=== PATIENT | female | born 1960 | race Caucasian/White ===

== ENCOUNTER 2020-05-13 08:11 | Outpatient (CLI) | payer OTHER, SELFPAY ==
--- NOTE | ~2020-05-13 | MM_ITS ---
EXAMINATION: MM screening [facility] BI w juliana HISTORY: Screening mammogram TECHNIQUE: Craniocaudal and mediolateral oblique 3-D tomosynthesis images were obtained and synthetic 2-D images were generated. CAD analysis was submitted and interpreted. COMPARISON: 06/19/2018, 01/24/2017, 12/15/2015, 12/13/2015 BREAST PARENCHYMAL COMPOSITION: There are scattered areas of fibroglandular density. FINDINGS: There is no evidence of suspicious mass, calcification, or architectural distortion to sugg est malignancy in either breast. There has been no suspicious interval change. IMPRESSION: 1. No mammographic evidence of malignancy. 2. Recommend routine screening mammography in one year. BI-RADS Category 1: Negative Reviewed, dictated and finalized at location A.
== END 2020-05-13 08:12 | disposition home or self-care (01) ==
LOC: ANHIMG 08:14
PROVIDERS: PCP Family Medicine; Visit Provider Obstetrics & Gynecology
DX: Z12.31 Encounter for screening mammogram for malignant neoplasm of breast (principal)
CPT/HCPCS: 77063; 77067

== ENCOUNTER 2021-06-02 09:56 | Outpatient (CLI) | payer OTHER, SELFPAY ==
--- NOTE | ~2021-06-02 | MM_ITS ---
EXAMINATION: MM screening [facility] BI w juliana HISTORY: Screening mammogram TECHNIQUE: Craniocaudal and mediolateral oblique 3-D tomosynthesis images were obtained and synthetic 2-D images were generated. CAD analysis was submitted and interpreted. COMPARISON: 05/13/2020, 06/19/2018, 01/24/2017 BREAST PARENCHYMAL COMPOSITION: The breasts are heterogeneously dense, which may obscure small masses . FINDINGS: There is no evidence of suspicious mass, calcification, or architectural distortion to sugg est malignancy in either breast. There has been no suspicious interval change. IMPRESSION: 1. No mammographic evidence of malignancy. 2. Recommend routine screening mammography in one year. BI-RADS Category 1: Negative Reviewed, dictated and finalized at location A. TY HEAD
== END 2021-06-02 09:57 | disposition home or self-care (01) ==
LOC: ANHIMG 09:58
PROVIDERS: PCP Family Medicine; Visit Provider Obstetrics & Gynecology
DX: Z12.31 Encounter for screening mammogram for malignant neoplasm of breast (principal)
CPT/HCPCS: 77063; 77067

== ENCOUNTER 2022-04-24 14:20 | Outpatient (NON) | payer OTHER, SELFPAY | END 2022-04-24 14:21 | disposition home or self-care (01) | PROVIDERS: PCP Family Medicine; Visit Provider Nurse Practitioner | DX: L82.1 Other seborrheic keratosis (principal) | CPT/HCPCS: 88305 ==

== ENCOUNTER 2022-05-15 13:00 | Outpatient (NON) | payer OTHER, SELFPAY | END 2022-05-15 13:01 | disposition home or self-care (01) | PROVIDERS: PCP Family Medicine; Visit Provider Nurse Practitioner | DX: L82.1 Other seborrheic keratosis (principal) | CPT/HCPCS: 88304 ==

== ENCOUNTER 2022-08-02 09:35 | Outpatient (CLI) | payer OTHER, SELFPAY ==
--- NOTE | ~2022-08-02 | MM_ITS ---
EXAMINATION: MM screening [facility] BI w juliana HISTORY: Screening mammogram TECHNIQUE: Craniocaudal and mediolateral oblique 3-D tomosynthesis images were obtained and synthetic 2-D images were generated. CAD analysis was submitted and interpreted. COMPARISON: 06/02/2021, 05/13/2020, 06/19/2018 BREAST PARENCHYMAL COMPOSITION: There are scattered areas of fibroglandular density. FINDINGS: No suspicious mass, calcification, or architectural distortion are identified in either ann marie ast to suggest malignancy. There has been no suspicious interval change. IMPRESSION: 1. No mammographic evidence of malignancy. 2. Recommend routine screening mammography in one year. BI-RADS Category 1: Negative Reviewed, dictated and finalized at location A. NSION COURSE COORDINATOR
== END 2022-08-02 09:36 | disposition home or self-care (01) ==
PROVIDERS: PCP Family Medicine; Visit Provider Obstetrics & Gynecology
DX: Z12.31 Encounter for screening mammogram for malignant neoplasm of breast (principal)
CPT/HCPCS: 77063; 77067

== ENCOUNTER 2022-09-03 07:53 | Outpatient (CLI) | payer OTHER, SELFPAY ==
--- NOTE | 2022-09-03 18:34 | P.PCNPFT_ITS ---
PFT Procedure Performed PFT Procedure Performed Spirometry with Pre/Post Bronchodilator Plethysmography (Lung Vol) Diffusing Cap (DLCO) Flow Vol Loop PFT Interpretation DOS: 09/03/2022 REQUESTING: Dr. Franklin REASON FOR TESTING: Chronic cough PULMONARY FUNCTION TESTS Results are reliable and reproducible. Spirometry: Pre-bronchodilator FEV1 is 2.75 L, 114%, normal. Pre- bronchodilator FVC is 3.93 L, 129%, above normal. FEV1/FVC ratio is 70%, normal. After bronchodilator there is a 3% increase in the FEV1, 117 % predicted. This is not statistically significant. There is no change after bronchodilator in the forced vital capacity. The FEF 25-75% is normal at baseline 1.77 L, 80% predicted and increases to 94% predicted. This is not statistically significant. Lung volumes: Total lung capacity 5.75 L, 117%, normal. Residual volume is 1.83 L, 94% predicted, normal. RV/TLC is 32%, within the normal range. There is no hyperinflation or air trapping. Airway resistance 2.42 cm water/ L/ 2nd, 170% predicted, elevated. Diffusion: DLCO is 22.3, 105% predicted, normal. DLCO/ VA is 4.3, 96%, normal. Flow volume loop: Unremarkable. The expiratory limb is normal. IMPRESSION: This study shows normal spirometry, normal lung volumes and normal diffusion. Lack of response to bronchodilator should not preclude use if clinically indicated. Anisha Pappas MD
== END 2022-09-03 07:54 | disposition home or self-care (01) ==
LOC: ANHPFT 07:56
PROVIDERS: PCP Family Medicine; Visit Provider Family Medicine
DX: R05.3 Chronic cough (principal)
CPT/HCPCS: 94060; 94726; 94729

== ENCOUNTER 2022-09-10 13:27 | Emergency (ER) | payer OTHER, SELFPAY ==
--- NOTE | 2022-09-10 13:32 | ED.URI ---
HPI - URI/Sore Throat General Chief Complaint: Upper Respiratory Infection Stated Complaint: Sore Throat/Left Ear Time Seen by Provider: 09/10/22 13:36 Source: patient, RN notes reviewed and old records reviewed Mode of arrival: ambulatory Limitations: no limitations History of Present Illness HPI Narrative: 61-year-old female presents to the [facility] with 5 days of sore throat and left ear pain. Denies taking anything for her symptoms States that she uses a nasal spray and takes allergy medication daily Recently had a pulmonary function test. Is scheduled to see a switchboard wirer as well as any ENT next week Related Data Home Medications Medication Instructions Recorded Confirmed fluticasone propionate 50 50 mcg intranasal DIRECTED 09/10/22 09/10/22 mcg/actuation nasal spray,suspension levothyroxine 50 mcg tablet 50 mcg DIRECTED 09/10/22 09/10/22 (Synthroid) loratadine 10 mg tablet (Claritin) 10 mg PO DAILY 09/10/22 09/10/22 Allergies Allergy/AdvReac Type Severity Reaction Status Date / Time No Known Allergies Allergy Verified 07/28/14 18:09 Review of Systems Review of Systems: All systems reviewed & are unremarkable except as noted in HPI and below Constitutional: Constitutional: Reports no additional constitutional complaints Eyes: Eyes: Reports no additional eye complaints ENT: Reports as per HPI, Reports otalgia (Left) and Reports sore throat Cardiovascular: Cardiovascular: Reports no additional cardiovascular complaints, Denies chest pain and Denies dyspnea Respiratory: Respiratory: Reports no additional respiratory complaints, Denies chest congestion, Denies cough and Denies dyspnea Gastrointestinal: Gastrointestinal: Reports no additional gastrointestinal complaints, Denies abdominal pain, Denies nausea and Denies vomiting Musculoskeletal: Musculoskeletal: Reports no additional musculoskeletal complaints Integumentary/Breasts: Skin/Breast: Reports system reviewed and no additional complaints, except as docu Neurologic: Reports system reviewed and no additional complaints, except as documented Psychiatric: Psychiatric: Reports no additional psychiatric complaints Allergic/Immunologic: Allergic/Immunologic: Reports no additional allergic/immunologic complaints [facility] Family History Family History Mother Hypertension Family history of chronic obstructive pulmonary disease Family history of diabetes mellitus in first degree relative Other Cerebrovascular accident Diabetes mellitus Family history of alcoholism Family history of arthritis Family history of cardiovascular disease Family history of lung disease Family history of malignant neoplasm Family history of mental disorder Social History Social History Smoking status: Never smoker Alcohol intake: never Comments At the time of my signature, I reviewed and agree with the nursing past medical, surgical, social, and family history. There is no relevant family history pertinent to the patient complaint. Exam Const: General: cooperative, healthy appearing, comfortable, no acute distress, well developed, alert and well nourished Nutritional Appearance: well nourished Orientation/consciousness: patient oriented x3 Limitations: no limitations HENMT: Head: normal to inspection Ears: hearing grossly normal bilaterally, external ears normal, TM's normal bilaterally and Abnormal EAC present erythema on the left; no cerumen impaction, no excessive cerumen and no edema Face/Nose/Sinus: Normal external nose present, Normal nares present, Normal nasal mucous membranes and turbinates present and normal facial exam Face and sinus: normal facial exam Mouth: Yes Normal oral and palatal mucosa present, Yes lip normal and Yes moist mucous membranes Throat: posterior oropharynx normal, uvula midline and postnasal drainage Eye
[2022-09-10 13:36] VITALS: BP 137/75; PULSE 62; RESP 16; TEMP 36.9; O2SAT 100
[2022-09-10 13:38] VITALS: BP 137/75; PULSE 62; RESP 16; TEMP 36.9; O2SAT 100
== END 2022-09-10 13:58 | disposition home or self-care (01) ==
PROVIDERS: Emergency Provider Nurse Practitioner; PCP Family Medicine
DX: J02.9 Acute pharyngitis, unspecified (principal); H61.892 Other specified disorders of left external ear; E03.9 Hypothyroidism, unspecified
CPT/HCPCS: 87081; 87880; 99213; G0463

== ENCOUNTER 2023-09-09 09:05 | Outpatient (CLI) | payer OTHER, SELFPAY ==
--- NOTE | ~2023-09-09 | MM_ITS ---
EXAMINATION: MM screening [facility] BI w juliana HISTORY: Screening TECHNIQUE: Craniocaudal and mediolateral oblique 3-D tomosynthesis images were obtained and synthetic 2-D images were generated. CAD analysis was submitted and interpreted. COMPARISON: Comparison to multiple prior studies sequentially, with oldest reviewed study dated 08/2015. BREAST PARENCHYMAL COMPOSITION: Dense: The breasts are heterogeneously dense, which may obscure small masses FINDINGS: There is no evidence of suspicious mass, calcification, or architectural distortion to sugg est malignancy in either breast. There has been no suspicious interval change. IMPRESSION: 1. No mammographic evidence of malignancy. 2. Recommend routine screening mammography in one year. BI-RADS Category 1: Negative Reviewed, dictated and finalized at location A. IC RELATIONS INTERN
== END 2023-09-09 09:06 | disposition home or self-care (01) ==
LOC: ANHIMG 09:07
PROVIDERS: PCP Family Medicine; Visit Provider Obstetrics & Gynecology
DX: Z12.31 Encounter for screening mammogram for malignant neoplasm of breast (principal)
CPT/HCPCS: 77063; 77067

== ENCOUNTER 2023-09-30 03:02 | Day surgery (SDC) | payer OTHER, SELFPAY ==
[2023-09-18 14:54] VITALS: BMI 26.2
--- NOTE | 2023-09-30 13:32 | P.PNAN_ITS ---
Anes - Initial Pre Proc Eval Procedure: Operation Date: 09/30/23 14:30 Proposed Procedures p Screening Colonoscopy - Maurizio Feliciano MD Date/Time: 09/30/23 13:32 Surgeon: Maurizio Feliciano MD Pre Op Diagnosis: neoplasm screening Patient Data Age: 63 Gender: F Height: 1.57 m Weight: 65 kg Allergies Allergy/AdvReac Type Severity Reaction Status Date / Time No Known Allergies Allergy Verified 09/18/23 14:51 Home Medications Medication Instructions Recorded Confirmed Type fluticasone propionate 50 50 mcg intranasal DIRECTED 09/10/22 09/18/23 History mcg/actuation nasal spray,suspension levothyroxine 50 mcg tablet 50 mcg DIRECTED 09/10/22 09/18/23 History (Synthroid) loratadine 10 mg tablet (Claritin) 10 mg PO DAILY 09/10/22 09/18/23 History escitalopram oxalate 10 mg tablet 10 mg PO DAILY 09/18/23 09/18/23 History Patient hx anesthesia problems: none Family hx anesthesia problems: none Results Review: All pre-operative results and documents have been reviewed as part of the pre- operative evaluation. [facility] Family History Family History Mother Hypertension Family history of chronic obstructive pulmonary disease Family history of diabetes mellitus in first degree relative Other Cerebrovascular accident Diabetes mellitus Family history of alcoholism Family history of arthritis Family history of cardiovascular disease Family history of lung disease Family history of malignant neoplasm Family history of mental disorder Social History Social History Smoking status: Never smoker Alcohol intake: never Living arrangements: with family Spiritual care concerns: No Anes - Eval Final PreProcedure Day of Procedure 09/30/23 13:32 Patient weight: normal Heart: regular rate and rhythm Lungs: clear to auscultation Airway: Mallampati scale class II Neurological: alert and oriented Last oral intake: >/= 8 hours ASA classification: II Emergent: no Anesthetic plan: proceed Anesthesia type and monitoring: general GIVS and standard monitoring Results Review: All pre-operative results and documents have been reviewed as part of the pre- operative evaluation. Informed Consent: The patient's anesthetic plan and its attendant risks and benefits were discussed with the patient/family/POA. Questions were solicited and answers provided to the satisfaction of the patient/family/POA.
[2023-09-30 13:35] VITALS: BP 115/60; PULSE 73; RESP 16; TEMP 37; O2SAT 98
[2023-09-30] MEDS: LACTATED RINGERS 1,000 ML 150 ML IV CONT (13:45)
--- NOTE | 2023-09-30 13:49 | PM.HPGS ---
History of Present Illness History of Present Illness Consent: Risks, benefits, and alternatives have been discussed and questions answered. Patient agrees to proceed with procedure. Chief complaint: neoplasm screening Narrative: Shena Fierro is a 63 year old female here for screening colonoscopy, last one 12 years ago Review of Systems Review of Systems: All systems reviewed & are unremarkable except as noted in HPI and below PMFSH Past Medical History Medical History (Updated 09/30/23 @ 13:50 by Maurizio Feliciano MD) Colon cancer screening Family History Family History Mother Hypertension Family history of chronic obstructive pulmonary disease Family history of diabetes mellitus in first degree relative Other Cerebrovascular accident Diabetes mellitus Family history of alcoholism Family history of arthritis Family history of cardiovascular disease Family history of lung disease Family history of malignant neoplasm Family history of mental disorder Social History Social History Smoking status: Never smoker Alcohol intake: never Living arrangements: with family Spiritual care concerns: No Meds Home Medications and Allergies Home Medications Medication Instructions Recorded Confirmed Type fluticasone propionate 50 50 mcg intranasal DIRECTED 09/10/22 09/30/23 History mcg/actuation nasal spray,suspension levothyroxine 50 mcg tablet 50 mcg DIRECTED 09/10/22 09/30/23 History (Synthroid) loratadine 10 mg tablet (Claritin) 10 mg PO DAILY 09/10/22 09/30/23 History escitalopram oxalate 10 mg tablet 10 mg PO DAILY 09/18/23 09/30/23 History Allergies Allergy/AdvReac Type Severity Reaction Status Date / Time No Known Allergies Allergy Verified 09/30/23 13:34 Vital Signs Vital Signs - 24 hr 09/30/23 13:35 Temperature 98.6 F Pulse Rate 73 Respiratory Rate 16 Blood Pressure 115/60 Pulse Oximetry 98 Oxygen Delivery Room Air Exam Const: General: comfortable and no acute distress HENMT: Face/Nose/Sinus: Normal nares present Eyes: General: appearance normal, both eyes and all related structures Neck: Neck: no JVD Resp: Auscultation: clear to auscultation bilaterally Cardio: Rate: regular rate Rhythm: regular rhythm GI: Inspection: non-distended GI Palp: Yes Soft to palpation Skin: General skin exam: normal color Neuro: General: gait normal Speech: normal speech Extrem: General: normal to inspection Psych: Mental Status: mental status grossly normal Assessment and Plan Assessment and plan (1) Colon cancer screening: Code(s): Z12.11 - Encounter for screening for malignant neoplasm of colon Status: Acute Assessment and Plan: colonoscopy
[2023-09-30 14:08] VITALS: BP 119/63; PULSE 75; RESP 24; O2SAT 99
[2023-09-30 14:18] VITALS: BP 122/60; PULSE 74; RESP 22; O2SAT 100
[2023-09-30 14:28] VITALS: BP 132/87; PULSE 81; RESP 20; O2SAT 99
== END 2023-09-30 14:43 | disposition home or self-care (01) ==
PROVIDERS: PCP Family Medicine; Visit Provider Internal Medicine Gastroenterology
PROC: 0DJD8ZZ Inspection of Lower Intestinal Tract, Via Natural or Artificial Opening Endoscopic (ICD-10-PCS; CPT 45378; principal; 2023-09-30 14:30)
DX: Z12.11 Encounter for screening for malignant neoplasm of colon (principal); K63.5 Polyp of colon; K64.8 Other hemorrhoids; Z80.9 Family history of malignant neoplasm, unspecified; Z82.49 Family history of ischemic heart disease and other diseases of the circulatory system
CPT/HCPCS: 45385; 88305; J2704; J7120

== ENCOUNTER 2024-10-05 14:44 | Outpatient (CLI) | payer OTHER, SELFPAY ==
--- NOTE | ~2024-10-05 | MM_ITS ---
EXAMINATION: MM screening candido BI w juliana HISTORY: Screening TECHNIQUE: Craniocaudal and mediolateral oblique 3-D tomosynthesis images were obtained and synthetic 2-D images were generated. CAD analysis was submitted and interpreted. COMPARISON: 09/09/2023 and dating back to 05/13/2020 BREAST PARENCHYMAL COMPOSITION: The breasts are heterogeneously dense, which may obscure small masses . FINDINGS: Punctate calcifications are detected bilaterally, stable and benign in appearance. Microclip within a subcentimeter mass in the upper outer left breast, consistent with patient's histo ry. Stable parenchymal pattern without suspicious microcalcifications, architectural distortion, discrete masses or significant asymmetry. IMPRESSION: 1. No mammographic evidence of malignancy. 2. Recommend routine screening mammography in one year. BI-RADS Category 2: Benign finding(s). Reviewed, dictated and finalized at location A.
--- OUTSIDE RECORDS SUMMARY | 2024-10-05 17:02 | XMS_ITS | Encounter Summary ---
Author Organization [facility] Address 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
--- OUTSIDE RECORDS SUMMARY | 2024-10-05 17:02 | XMS_ITS | Encounter Summary ---
Author Organization [facility] Address [address] [place] [address] Care Team Providers Care Senior Benefits Specialist Name Role Phone Sarkis Dolan MD Primary Care Provider [phone] Encounter Details Date Type Department Care Team (Late st Contact Info) Description 12/16/2000 Outpatient Historical [facility] [address] 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
--- OUTSIDE RECORDS SUMMARY | 2024-10-05 17:02 | XMS_ITS | Encounter Summary ---
Author Organization [facility] Address 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
--- OUTSIDE RECORDS SUMMARY | 2024-10-05 17:02 | XMS_ITS | Encounter Summary ---
Author Organization [facility] Address [address] [place] [address] Care Team Providers Care Nurse School Name Role Phone Sarkis Dolan MD Primary Care Provider [phone] Encounter Details Date Type Department Care Team (Latest Contact Info) Description 12/16/2000 Outpatient Historical [facility] Monroe Burnett MD [address] 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
--- OUTSIDE RECORDS SUMMARY | 2024-10-05 17:03 | XMS_ITS | Encounter Summary ---
Author Organization [facility] Address 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
--- OUTSIDE RECORDS SUMMARY | 2024-10-05 17:03 | XMS_ITS | Encounter Summary ---
Author Organization [facility] Address 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
--- OUTSIDE RECORDS SUMMARY | 2024-10-05 17:03 | XMS_ITS | Encounter Summary ---
Author Organization [facility] Address [address] [place] [address] Care Team Providers Care Central Station Operator Name Role Phone Sarkis Dolan MD Primary Care Provider [phone] Encounter Details Date Type Department Care Team (Latest Contact Info) Description 11/07/2000 Outpatient Historical [facility] Sarkis Dolan MD [address] [place] [address] Unspecified hypertensive kidney disease with chronic kidney disease stage I through stage IV, or unspecified(403.90) (Primary Dx) Social History Tobacco Use Types Packs/Day Years Used Date Smoking Tobacco: Never Assessed Comments Unknown Sex and Gender Information Value Date Recorded Sex Assigned at Not on file Legal Sex Female 4:29 AM BRIDAL GOWN FITTER Gender Identity Not on file Sexual Orientation Not on file documented as of this encounter Plan of Treatment Not on file documented as of this encounter Visit Diagnoses Diagnosis Unspecified hypertensive kidney disease with chronic kidney disease stage I through stage IV, or unspecified(403.90)- Primary Unspecified hypertensive kidney disease with chronic kidney disease stage I through stage IV, or unspecified documented in this encounter Care Teams Central Station Operator Relationship Specialty Start Date End Date Sarkis Dolan MD [address] [place] [address] PCP - General 10/31/00 documented as of this encounter
--- OUTSIDE RECORDS SUMMARY | 2024-10-05 17:03 | XMS_ITS | Encounter Summary ---
Author Organization [employer] Address [address] [place] [address] Care Team Providers Care Force Dispatcher Name Role Phone Sarkis Dolan MD Primary Care Provider [phone] Encounter Details Date Type Department Care Team (Latest Contact Info) Description 11/27/2000 Outpatient Historical [facility] Sarkis Dolan MD [address] [place] [address] Unspecified essential hypertension (Primary Dx) Social History Tobacco Use Types Packs/Day Years Used Date Smoking Tobacco: Never Assessed Comments Unknown Sex and Gender Information Value Date Recorded Sex Assigned at Not on file Legal Sex Female 4:29 AM STOVE FITTER Gender Identity Not on file Sexual Orientation Not on file documented as of this encounter Plan of Treatment Not on file documented as of this encounter Visit Diagnoses Diagnosis Unspecified essential hypertension- Primary documented in this encounter Care Teams Force Dispatcher Relationship Specialty Start Date End Date Sarkis Dolan MD [address] [place], [place] [id number] PCP - General 10/31/00 documented as of this encounter
--- OUTSIDE RECORDS SUMMARY | 2024-10-05 17:03 | XMS_ITS | Encounter Summary ---
Author Organization [employer] Address [address] [place] [address] Care Team Providers Care Field Automobile Adjuster Name Role Phone Sarkis Dolan MD Primary Care Provider [phone] Encounter Details Date Type Department Care Team (Latest Contact Info) Description 11/07/2000 Outpatient Historical [facility] Sarkis Dolan MD [address] [place] [address] Syncope and collapse (Primary Dx) Social History Tobacco Use Types Packs/Day Years Used Date Smoking Tobacco: Never Assessed Comments Unknown Sex and Gender Information Value Date Recorded Sex Assigned at Not on file Legal Sex Female 4:29 AM REED MAN Gender Identity Not on file Sexual Orientation Not on file documented as of this encounter Plan of Treatment Not on file documented as of this encounter Visit Diagnoses Diagnosis Syncope and collapse- Primary documented in this encounter Care Teams Field Automobile Adjuster Relationship Specialty Start Date End Date Sarkis Dolan MD [address] [place], [place] [id number] PCP - General 10/31/00 documented as of this encounter
--- OUTSIDE RECORDS SUMMARY | 2024-10-05 17:03 | XMS_ITS | Encounter Summary ---
Author Organization [facility] Address [address] [place] [address] Care Team Providers Care Batteryman Name Role Phone Sarkis Dolan MD Primary Care Provider [phone] Encounter Details Date Type Department Care Team (Latest Contact Info) Description 11/25/2000 Outpatient Historical [facility] Sarkis Lopez MD [address] [place] [address] Other screening mammogram (Primary Dx) Social History Tobacco Use Types Packs/Day Years Used Date Smoking Tobacco: Never Assessed Comments Unknown Sex and Gender Information Value Date Recorded Sex Assigned at Not on file Legal Sex Female 4:29 AM UI SOFTWARE DEVELOPER Gender Identity Not on file Sexual Orientation Not on file documented as of this encounter Plan of Treatment Not on file documented as of this encounter Visit Diagnoses Diagnosis Other screening mammogram- Primary documented in this encounter Care Teams Batteryman Relationship Specialty Start Date End Date Sarkis Dolan MD [address] [place] [address] PCP - General 10/31/00 documented as of this encounter
--- OUTSIDE RECORDS SUMMARY | 2024-10-05 17:03 | XMS_ITS | Encounter Summary ---
Author Organization [facility] Address 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
--- OUTSIDE RECORDS SUMMARY | 2024-10-05 17:04 | XMS_ITS | Encounter Summary ---
Author Organization [employer] Address [address] [place] [address] Care Team Providers Care Platform Consultant Name Role Phone Sarkis Dolan MD Primary Care Provider [phone] Encounter Details Date Type Department Care Team (Latest Contact Info) Description 12/19/2000 Outpatient Historical [facility] PATIENT IN A BED [place] Burnett MD [address] [facility] [address] [place] [address] Vascular disorders of kidney (Primary Dx) Social History Tobacco Use Types Packs/Day Years Used Date Smoking Tobacco: Never Assessed Comments Unknown Sex and Gender Information Value Date Recorded Sex Assigned at Not on file Legal Sex Female 4:29 AM FRUIT CHECKER Gender Identity Not on file Sexual Orientation Not on file documented as of this encounter Plan of Treatment Not on file documented as of this encounter Visit Diagnoses Diagnosis Vascular disorders of kidney- Primary documented in this encounter Care Teams Platform Consultant Relationship Specialty Start Date End Date Sarkis Dolan MD [address] [place], [place] [id number] PCP - General 10/31/00 documented as of this encounter
--- OUTSIDE RECORDS SUMMARY | 2024-10-05 17:04 | XMS_ITS | Encounter Summary ---
Author Organization [employer] Address [address] [place] [address] Care Team Providers Care Job Molder Name Role Phone Sarkis Dolan MD Primary Care Provider [phone] Encounter Details Date Type Department Care Team (Latest Contact Info) Description 02/18/2001 Outpatient Historical [facility]-PATIENT Urinary tract infection, site not specified (Primary Dx) Social History Tobacco Use Types Packs/Day Years Used Date Smoking Tobacco: Never Assessed Comments Unknown Sex and Gender Information Value Date Recorded Sex Assigned at Not on file Legal Sex Female 4:29 AM SOCK AND STOCKING IRONER Gender Identity Not on file Sexual Orientation Not on file documented as of this encounter Plan of Treatment Not on file documented as of this encounter Visit Diagnoses Diagnosis Urinary tract infection, site not specified- Primary documented in this encounter Care Teams Job Molder Relationship Specialty Start Date End Date Sarkis Dolan MD [address] [place] [address] PCP - General 10/31/00 documented as of this encounter
--- OUTSIDE RECORDS SUMMARY | 2024-10-05 17:04 | XMS_ITS | Encounter Summary ---
Author Organization [facility] Address [address] [place] [address] Care Team Providers Care Manager Pacu Name Role Phone Sarkis Dolan MD Primary Care Provider [phone] Encounter Details Date Type Department Care Team (Latest Contact Info) Description 10/22/2000 Outpatient Historical [facility] Conversion, History Gynecological examination (Primary Dx) Social History Tobacco Use Types Packs/Day Years Used Date Smoking Tobacco: Never Assessed Comments Unknown Sex and Gender Information Value Date Recorded Sex Assigned at Not on file Legal Sex Female 4:29 AM INFORMATION SYSTEMS SECURITY SPECIALIST Gender Identity Not on file Sexual Orientation Not on file documented as of this encounter Plan of Treatment Not on file documented as of this encounter Visit Diagnoses Diagnosis Gynecological examination- Primary documented in this encounter Care Teams Manager Pacu Relationship Specialty Start Date End Date Sarkis Dolan MD [address] [place] [address] PCP - General 10/31/00 documented as of this encounter
--- OUTSIDE RECORDS SUMMARY | 2024-10-05 17:04 | XMS_ITS | Encounter Summary ---
Author Organization [employer] Address [address] [place] [address] Care Team Providers Care Wet Machine Operator Name Role Phone Sarkis Dolan MD Primary Care Provider [phone] Encounter Details Date Type Department Care Team (Latest Contact Info) Description 10/21/2000 Outpatient Historical [facility]NON-PATIENT So Garcia Irregular menstrual cycle (Primary Dx) Social History Tobacco Use Types Packs/Day Years Used Date Smoking Tobacco: Never Assessed Comments Unknown Sex and Gender Information Value Date Recorded Sex Assigned at Not on file Legal Sex Female 4:29 AM WOODWORKING MACHINE OFFBEARER Gender Identity Not on file Sexual Orientation Not on file documented as of this encounter Plan of Treatment Not on file documented as of this encounter Visit Diagnoses Diagnosis Irregular menstrual cycle- Primary documented in this encounter Care Teams Wet Machine Operator Relationship Specialty Start Date End Date Sarkis Dolan MD [address] [place] [address] PCP - General 10/31/00 documented as of this encounter
--- OUTSIDE RECORDS SUMMARY | 2024-10-05 17:04 | XMS_ITS | Encounter Summary ---
Author Organization [employer] Address [address] [place] [address] Care Team Providers Care Recovery Assistant Name Role Phone Sarkis Dolan MD Primary Care Provider [phone] Encounter Details Date Type Department Care Team (Late st Contact Info) Description 10/31/2000 Outpatient Historical [facility] Sarkis Dolan MD [address] [place] [address] Leiomyoma of uterus, unspecified (Primary Dx) Social History Tobacco Use Types Packs/Day Years Used Date Smoking Tobacco: Never Assessed Comments Unknown Sex and Gender Information Value Date Recorded Sex Assigned at Not on file Legal Sex Female 4:29 AM ROBOTICS TESTING TECHNICIAN Gender Identity Not on file Sexual Orientation Not on file documented as of this encounter Plan of Treatment Not on file documented as of this encounter Visit Diagnoses Diagnosis Leiomyoma of uterus, unspecified- Primary documented in this encounter Care Teams Recovery Assistant Relationship Specialty Start Date End Date Sarkis Dolan MD [address] [place], [place] [id number] PCP - General 10/31/00 documented as of this encounter
--- OUTSIDE RECORDS SUMMARY | 2024-10-05 17:04 | XMS_ITS | Encounter Summary ---
Author Organization [facility] Address [address] [place] [address] Care Team Providers Care Electro Optical Engineer Name Role Phone Sarkis Dolan MD Primary Care Provider [phone] Encounter Details Date Type Department Care Team (Late st Contact Info) Description 10/22/2000 Outpatient Historical [facility] So Garcia Social History Tobacco Use Types Packs/Day Years Used Date Smoking Tobacco: Never Assessed Comments Unknown Sex and Gender Information Value Date Recorded Sex Assigned at Not on file Legal Sex Female 4:29 AM SWIFT TENDER Gender Identity Not on file Sexual Orientation Not on file documented as of this encounter Plan of Treatment Not on file documented as of this encounter Visit Diagnoses Not on filedocumented in this encounter Care Teams Electro Optical Engineer Relationship Specialty Start Date End Date Sarkis Dolan MD [address] [place] [address] PCP - General 10/31/00 documented as of this encounter
--- OUTSIDE RECORDS SUMMARY | 2024-10-05 17:04 | XMS_ITS | Encounter Summary ---
Author Organization [facility] Address [address] [place] [address] Care Team Providers Care Glue Spreader Name Role Phone Sarkis Dolan MD Primary Care Provider [phone] Encounter Details Date Type Department Care Team (Late st Contact Info) Description 10/30/2000 Outpatient Historical HIS [facility] Sarkis Dolan MD [address] [place] [address] Social History Tobacco Use Types Packs/Day Years Used Date Smoking Tobacco: Never Assessed Comments Unknown Sex and Gender Information Value Date Recorded Sex Assigned at Not on file Legal Sex Female 4:29 AM BODY MASKER Gender Identity Not on file Sexual Orientation Not on file documented as of this encounter Plan of Treatment Not on file documented as of this encounter Visit Diagnoses Not on filedocumented in this encounter Care Teams Glue Spreader Relationship Specialty Start Date End Date Sarkis Dolan MD [address] [place] [address] PCP - General 10/31/00 documented as of this encounter
--- OUTSIDE RECORDS SUMMARY | 2024-10-05 17:04 | XMS_ITS ---
Author Organization [facility] Address [address] [place] [address] Care Team Providers Care Telecommunications Manager Name Role Phone Lizzie Franklin Primary Care Provider Unavailab le Pita Salvador Unavailable [phone] [facility], Provider Unavailable Unavailab le [facility] Encounter Medications Medication SIG (Take, Route, Frequency, Duration) Notes Start Date End Date Status Cetirizine HCl 10 MG 1 tab(s) orally onc e a day 09/19/2022 Active Flonase Sensimist 27.5 MCG/SPRAY as directed intranasally once a day for 30 day(s) 09/19/2022 Active Claritin 10 MG 1 tab(s) orally once a day uses prn Active EPINEPHRINE AUTO-INJECTOR 0.3 MG DIRECTED INTRAMUSCULARLY ONCE for 1 DAY *Please review for potential replacement for e-prescription and drug interaction check* 09/19/2022 Active Levothyroxine Sodium 25 MCG 1 tab(s) orally once a day for 30 day(s) Active ALBUTEROL (EQV-PROVENTIL HFA) 90 MCG/INH 2 PUFF(S) INHALED EVERY 6 HOURS *Please review for potential replacement for e-prescription and drug interaction check* 09/19/2022 Active Nasacort Allergy 24HR uses prn *Please review and pick correct strength[facility]ulat ion [facility]. If intended option is not shown, discontinue and re-order from Quick Search* Active ALBUTEROL (EQV-PROVENTIL HFA) 90 MCG/INH 2 PUFF(S) INHALED EVERY 6 HOURS uses prn *Please review for potential replacement for e-prescription and drug interaction check* Active Arnuity Ellipta 100 MCG/ACT USE 1 INHALATION EVERY 24 HOURS Active Encounters Encounter Location Date Provider Diagnosis [facility] [address] [place] [address] 12/28/2023 Provider TheaZ-Migration Allergic rhinitis due to pollen J30.1 and [...] 27.5 MCG/SPRAY as directed intranasally once a day for 30 day(s) 09/19/2022 EPINEPHRINE AUTO-INJECTOR 0.3 MG DIRECTED INTRAMUSCULARLY ONCE for 1 DAY 09/19/2022 *Please review for potential replacement for e-prescription and drug interaction check* ALBUTEROL (EQV-PROVENTIL HFA) 90 MCG/INH 2 PUFF(S) INHALED EVERY 6 HOURS 09/19/2022 *Please review for potential replacement for e-prescription and drug interaction check* Arnuity Ellipta 100 MCG/ACT USE 1 INHALATION EVERY 24 HOURS Progress Notes * Shena FIERRODOB:1960 (64 yo F)Acc No.[id number]:12/28/2023 Patient: Shena ORELLANA Provider: Vanessa Walker :1960 A ge:63 Y S ex:Female Date:12/28/2023 Address:[address] [place], [place] [id number] Pcp:Lizzie Franklin Subjective: * Chief Complaints: * 1 . [facility] Conversion Encounter. * Medical History: * Medications: T aking Nasacort Allergy 24HR , Notes to Pharmacist: uses prn *Please review and pick correct [facility]formulation [facility]. If intended option is not shown, [...] * Electronic signature of Jeffery BECKFORD-Migration on 10/05/2024 at 05:03 PM CDT Sign off status: Pending * Provider: Vanessa guzman Migration Date: 0 12/28/2023 Generated for Vanessa pickering/Edwin/Carsonsmitting on: 0 10/05/2024 05:03 PM CDT
--- OUTSIDE RECORDS SUMMARY | 2024-10-05 17:04 | XMS_ITS | Encounter Summary ---
Author Organization [facility] Address 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
--- OUTSIDE RECORDS SUMMARY | 2024-10-05 17:04 | XMS_ITS | Clinical Summary ---
Author Organization [facility] Address [address] [facility] [place] [address] Phone Care Team Providers Care Business Process Representative Name Role Phone Sarkis Dolan MD Primary Care Provider [phone] Allergies No known active allergies Medications amLODIPine (NORVASC) 5 mg tablet 12/09/2015 Active hydrochlorothiazid e (MICROZIDE) 12.5 mg capsule 09/19/2015 Active levothyroxine 25 mcg tablet 12/09/2015 Active escitalopram oxalate (LEXAPRO) 10 mg tablet 09/19/2015 Active Active Problems Problem Noted Date Diagnosed Date Breast lump in female 12/20/2015 Family History Medical History Relation Name Comments Diabetes Mother Heart Disease Mother Breast Cancer Neg Hx Ovarian Cancer Neg Hx Uterine Cancer Neg Hx Relation Name Status Comments Mother Social History Tobacco Use Types Packs/Day Years Used Date Smoking Tobacco: Never Smokeless Tobacco: Never Tobacco Cessation:Counseling Given: No Alcohol Use Standard Drinks/Week Comments Yes 0 (1 standard drink = 0.6 oz pur e alcohol) moderate Comments No Sex and Gender Information Value Date Recorded Sex Assigned at Not on file Legal Sex Female 4:29 AM SOFTWARE SYSTEMS ANALYST Gender Identity Not on file Sexual Orientation Not on file Last Filed Vital Signs Vital Sign Reading Time Taken Comments Blood Pressure 132/77 12/23/2015 12:21 PM CDT Pulse 58 12/23/2015 12:21 PM CDT Temperature - - Respiratory Rate - - Oxygen Saturation - - Inhaled Oxygen Concentration - - Weight 70.3 kg (155 lb) 12/23/2015 12:21 PM CDT Height 160 cm (5' 3 ) 12/23/2015 12:21 PM CDT Body Mass Index 27.46 12/23/2015 12:21 PM CDT Plan of Treatment Health Maintenance Due Date Last Done Comments DTAP/TDAP/TD VACCINES (1 - Tdap) 1980 PAP SMEAR 1982 CERVICAL CANCER SCREENING 09/21/1991 HPV/Cotest 09/21/1991 PAP SMEAR 09/21/1991 COLORECTAL SCREENING 2006 Colorectal Cancer Screening 2006 FIT-DNA Q 3 years 2006 FIT/FOBT Q 1 year 2006 Flex Sig/CT Colonography Q 5 years 2006 ZOSTER VACCINE (1 of 2) 09/21/2011 BREAST CANCER SCREENING 12/14/2016 12/15/19 16, 12/13/2015, 09/29/2014, Additional history exists INFLUENZA VACCINE (#1) 2024 Preventative Visit- Commercial 07/15/2024 RSV VACCINE (60+ or ) (1 - 1-dose 75+ series) 2036 PNEUMOCOCCAL VACCINE 0-49 YEARS Aged Out No longer eligible based on patient's age to complete this topic Procedures Procedure Name Priority Date/Time Associated Diagnosis Comments MAMMO DIAGNOSTIC UNI LEFT W OR WO CAD Routine 12/15/2015 from Last 3 Months or Most Recently Relevant to Health Maintenance Results * MAMMO DIGITAL DIAG UNI LEFT (12/15/2015) Anatomical Region Laterality Modality Breast Left Other Riky Campos MD MAMMO ORDERABLES Edit ed Result - Final from Last 3 Months or Most Recently Relevant to Health Maintenance [place] [address] [place] [id number] Care Teams Business Process Representative Relationship Specialty Start Date End Date Sarkis Dolan MD [address] [place] [address] PCP - General 10/31/00
--- OUTSIDE RECORDS SUMMARY | 2024-10-05 17:04 | XMS_ITS | Encounter Summary ---
[facility] Organization [facility] Address [address] [place] [address] Care Team Providers Care Machine Hoop Maker Helper Name Role Phone Sarkis Dolan MD Primary Care Provider [phone] Encounter Details Date Type Department Care Team (Late st Contact Info) Description 03/18/2001 Outpatient Historical [facility] Brian Akers MD [id number] [place] [address] Social History Tobacco Use Types Packs/Day Years Used Date Smoking Tobacco: Never Assessed Comments Unknown Sex and Gender Information Value Date Recorded Sex Assigned at Not on file Legal Sex Female 4:29 AM COAT FITTER Gender Identity Not on file Sexual Orientation Not on file documented as of this encounter Plan of Treatment Not on file documented as of this encounter Visit Diagnoses Not on filedocumented in this encounter Care Teams Machine Hoop Maker Helper Relationship Specialty Start Date End Date Sarkis Dolan MD [address] [place], [place] [id number] PCP - General 10/31/00 documented as of this encounter
--- OUTSIDE RECORDS SUMMARY | 2024-10-05 17:04 | XMS_ITS | Encounter Summary ---
Author Organization [facility] Address [address] [place] [address] Care Team Providers Care It Compliance Manager Name Role Phone Sarkis Dolan MD Primary Care Provider [phone] Encounter Details Date Type Department Care Team (Late st Contact Info) Description 12/30/2000 Outpatient Historical HIS [facility] Sarkis Dolan MD [address] [place] [address] Social History Tobacco Use Types Packs/Day Years Used Date Smoking Tobacco: Never Assessed Comments Unknown Sex and Gender Information Value Date Recorded Sex Assigned at Not on file Legal Sex Female 4:29 AM TRAINMAN Gender Identity Not on file Sexual Orientation Not on file documented as of this encounter Plan of Treatment Not on file documented as of this encounter Visit Diagnoses Not on filedocumented in this encounter Care Teams It Compliance Manager Relationship Specialty Start Date End Date Sarkis Dolan MD [address] [place] [address] PCP - General 10/31/00 documented as of this encounter
--- OUTSIDE RECORDS SUMMARY | 2024-10-05 17:04 | XMS_ITS | Data Portability ---
Author Organization [facility], Main Office Address [address] [place] [address] Care Team Providers Care Quality Control Checker Name Role Phone SUSHANT FRANKLIN Primary Care Provider SUSHANT FRANKLIN Referring Provider Assessment No assessment recorded. Plan of Treatment Reminders Order Date Submit Date Provider Last Modified By Organization Details Last Modified Time Details Appointments None recorded. Lab urinalysis , dipstick [email or web address] [place] [address], [address], [address], 4 17:12:56 urinalysis complete, reflex culture 2023 024 DYLAN Not available 4 04:10:06 urinalysis , dipstick 2023 024 [facility] [address], [place], [address], 4 08:45:29 CBC w/ auto diff 2023 024 DYLAN Not available 4 04:10:04 CMP, serum or plasma 2023 024 DYLAN Not available 4 04:10:05 TSH, serum or plasma 2023 024 [email or web address] Not available 4 08:15:53 vitamin B12, serum 2023 024 DYLAN Not available 4 04:10:09 folate, serum 2023 DYLAN Not available 4 04:10:08 Referral orthopedic surgeon referral - Please call patient to schedule. 2023 024 [email or web address] [facility], [address], [place], [address], 5 16:34:59 Procedures None recorded. Surgeries None recorded. Imaging CT, abdomen + pelvis, w/o contrast - r/o kidney stone 2023 [facility] (Radiology), [address], [place], [address], 4 10:03:04 Medication Orders Estrace 2 mg tablet 2023 024 [facility] #[id number], [address], [place], [place], [id number], 4 09:34:50 metronidaz ole 0.75 % topical gel 2023 024 [facility] #59702, [address], [place], [place], [id number], 4 09:34:47 escitalopr am 10 mg tablet 2023 024 [facility] #95549, [address], [place], [place], [id number], 4 09:34:57 albuterol sulfate HFA 90 mcg/actuat ion aerosol inhaler 2023 024 [facility] #57380, [address], [place], [place], [id number], 4 09:34:49 cyclobenza alma 5 mg tablet 2023 024 [facility] #58639, [address], [place], [place], [id number], 4 09:34:55 diclofenac sodium 75 mg tablet,del ayed release 2023 024 [facility] #06981, [address], [place], [place], [id number], 4 09:34:49 oxybutynin chloride ER 10 mg tablet,ext ended release 24 hr 2023 024 [facility] #43041, [address], [place], [place], [id number], 4 09:34:50 Synthroid 88 mcg tablet 2023 024 [facility] #37719, [address], [place], [place], [id number], 4 09:34:50 Claritin 10 mg tablet 2023 024 [facility] #15215, [address], [place], [place], [id number], 4 09:34:54 Estrace 2 mg tablet 2023 024 [facility] #79590, [address], [place], [place], [id number], 4 18:24:13 Macrodanti n 100 mg capsule 2023 024 [email or web address] [facility] #31606, [address], [place], [place], [id number], 4 10:29:50 oxybutynin chloride ER 10 mg tablet,ext ended release 24 hr 2023 024 man [facility] #88974, [address], [place], [place], [id number], 09:10:35 nitrofuran toin monohydrat e/macrocry stals 100 mg capsule 2023 024 [email or web address] [facility] #67238, [address], [place], [place], [id number], 10:29:57 Patient TargetsNo targets recorded. Patient Instructions Encounter Date Encounter Id Patient Instructions Last Modified By Organization Details Last Modified Time 12/27/2023 [id number] plan 1. If she starts having symptoms as she described I want her to 1st start by increasing water 2. Next try azo 1 tablet twice a day for 3-5 days 3. She can try cranberry tablets 1 tablet twice a day for 3-5 days 4. I will go ahead and send a prescription for vaginal Estrace for atrophic and I will have her insert 1 tablet in the vagina twice weekly at bedtime dispensed 24 tablets with 3 refills 5. I will go ahead and give her a prescription for Macrodantin and if she is tried everything and she is still having symptoms then I told her she could take Macrodantin 1 tablet 3 times a day for 3-5 days [email or web address] Not available 12/27/2023 18:23:31 03/30/2024 [id number] Follow up with provider Prescriptions sent to pharmacy Orthopedic referral for left SA joint pain. [email or web address] Not available 03/30/2024 09:33:35 Reason for Referral Orthopedic Surgeon Referral for Pain in left sacroiliac joint Please call patient to schedule. Referring Physician: Emi Quintero, Internal Medicine, Encounter Date: 03/30/2024 Results Created Date Observation Date Name Description Value Unit Range Abnormal Flag Note LastModifiedBy Organization Detail LastModifiedTime 09/05/19 24 09/04/2023 URINA LYSIS , COMPL ETE color TNP TEST NOT PERFO RMED No suita ble speci men recei mt. Pleas e revie w the test requi remen ts at testd irect ory.q uestd iagno Vtap .[employer] Not Available [facility] [address] [place], [address], 09/05/2023 00:35:53 09/05/19 24 09/04/2023 CULTU RE, URINE , ROUTI NE culture, urine, routine SEE NOTE CULTU RE, URINE , ROUTI NE Micro Numbe r: [id number] Test Statu s: Final Speci men Sourc e: Urine Speci men Quali ty: Adequ ate Resul t: No Growt h NO COLLE CTION DATE RECEI MT. WE HAVE USED THE DATE THE SPECI MEN WAS RECEI MT BY THIS LABOR ATORY THE COLLE CTION DATE. IF THIS IS INCOR RECT, PLEAS E CONTA CT CLIEN T SERVI DAVID. PHONE NUMBE R: [phone] Not Available [employer] [facility] [address] [place], [address], 09/05/2023 00:35:55 08/27/19 24 08/28/2023 UA/M W/RFL X CULTU RE, ROUTI NE specific gravity 1.005 1.005- 1.030 Not Available [facility] ([facility]) [address] [place], [address], 08/28/2023 10:36:49 08/27/19 24 08/28/2023 UA/M W/RFL X CULTU RE, ROUTI NE pH 6.0 5.0-7. 5 Not Available [facility] ([facility]) [address] [place], [address], 08/28/2023 10:36:49 08/27/19 24 08/28/2023 UA/M W/RFL X CULTU RE, ROUTI NE urine-color YELLOW yellow Not Available [facility] ([facility]) [address] [place], [address], 08/28/2023 10:36:49 08/27/19 24 08/28/2023 UA/M W/RFL X CULTU RE, ROUTI NE appearance CLEAR clear Not Available [facility] ([facility]) [address] [place], [address], 08/28/2023 10:36:49 08/27/19 24 08/28/2023 UA/M W/RFL X CULTU RE, ROUTI NE WBC esterase NEGATI VE negati ve Not Available [facility] ([facility]) [address] [place], [address], 08/28/2023 10:36:49 08/27/19 24 08/28/2023 UA/M W/RFL X CULTU RE, ROUTI NE protein NEGATI VE negati ve/tra ce Not Available [facility] ([facility]) [address] [place], [address], 08/28/2023 10:36:49 08/27/19 24 08/28/2023 UA/M W/RFL X CULTU RE, ROUTI NE glucose TRACE negati ve abnormal Not Available [facility] ([facility]) [address] [place], [address], 08/28/2023 10:36:49 08/27/19 24 08/28/2023 UA/M W/RFL X CULTU RE, ROUTI NE ketones NEGATI VE negati ve Not Available [facility] ([facility]) [address] [place], [address], 08/28/2023 10:36:49 08/27/19 24 08/28/2023 UA/M W/RFL X CULTU RE, ROUTI NE occult blood NEGATI VE negati ve Not Available [facility] ([facility]) [address] [place], [address], 08/28/2023 10:36:49 08/27/19 24 08/28/2023 UA/M W/RFL X CULTU RE, ROUTI NE bilirubin NEGATI VE negati ve Not Available [facility] ([facility]) [address] [facility], [place], [address], 08/28/2023 10:36:49 08/27/19 24 08/28/2023 UA/M W/RFL X CULTU RE, ROUTI NE urobilinogen ,semi-qn 0.2 mg/dL 0.2-1. 0 Not Available [facility] ([facility]) [address] [facility], [place], [address], 08/28/2023 10:36:49 08/27/19 24 08/28/2023 UA/M W/RFL X CULTU RE, ROUTI NE nitrite, urine NEGATI VE negati ve Not Available [facility] ([facility]) [address] [facility], [place], [address], 08/28/2023 10:36:49 08/27/19 24 08/28/2023 UA/M W/RFL X CULTU RE, ROUTI NE microscopic examination COMMEN T Micro scopi c follo ws if indic ated. Not Available [facility] ([facility]) [address] [facility], [place], [address], 08/28/2023 10:36:49 08/27/19 24 08/28/2023 UA/M W/RFL X CULTU RE, ROUTI NE microscopic examination SEE BELOW: Micro scopi c was indic ated and was perfo rmed. Not Available [facility] ([facility]) [address] [facility], [place], [address], 08/28/2023 10:36:49 08/27/19 24 08/28/2023 UA/M W/RFL X CULTU RE, ROUTI NE WBC NONE SEEN /hpf 0 - 5 Not Available [facility] ([facility]) [address] [facility], [place], [address], 08/28/2023 10:36:49 08/27/19 24 08/28/2023 UA/M W/RFL X CULTU RE, ROUTI NE RBC 0-2 /hpf 0 - 2 Not Available [facility] ([facility]) [address] [facility], [place], [address], 08/28/2023 10:36:49 08/27/19 24 08/28/2023 UA/M W/RFL X CULTU RE, ROUTI NE epithelial cells (non renal) NONE SEEN /hpf 0 - 10 Not Available [facility] ([facility]) [address] [facility], [place], [address], 08/28/2023 10:36:49 08/27/19 24 08/28/2023 UA/M W/RFL X CULTU RE, ROUTI NE epithelial cells (renal) ASSISTANCE SPECIALIST Not Available [facility] ([facility]) [address] [facility], [place], [address], 08/28/2023 10:36:49 08/27/19 24 08/28/2023 UA/M W/RFL X CULTU RE, ROUTI NE casts NONE SEEN /lpf none seen Not Available [facility] ([facility]) [address] [facility], [place], [address], 08/28/2023 10:36:49 08/27/19 24 08/28/2023 UA/M W/RFL X CULTU RE, ROUTI NE cast type ASSISTANCE SPECIALIST Not Available [facility] ([facility]) [address] [facility], [place], [address], 08/28/2023 10:36:49 08/27/19 24 08/28/2023 UA/M W/RFL X CULTU RE, ROUTI NE crystals ASSISTANCE SPECIALIST Not Available [facility] ([facility]) [address] [facility], [place], [address], 08/28/2023 10:36:49 08/27/19 24 08/28/2023 UA/M W/RFL X CULTU RE, ROUTI NE crystal type ASSISTANCE SPECIALIST Not Available [facility] ([facility]) [address] [facility], [place], [address], 08/28/2023 10:36:49 08/27/19 24 08/28/2023 UA/M W/RFL X CULTU RE, ROUTI NE mucus threads ASSISTANCE SPECIALIST Not Available [facility] ([facility]) [address] [facility], [place], [address], 08/28/2023 10:36:49 08/27/19 24 08/28/2023 UA/M W/RFL X CULTU RE, ROUTI NE bacteria NONE SEEN none seen/f ew Not Available [facility] ([facility]) [address] [facility], [place], [address], 08/28/2023 10:36:49 08/27/19 24 08/28/2023 UA/M W/RFL X CULTU RE, ROUTI NE yeast ASSISTANCE SPECIALIST Not Available [facility] ([facility]) [address] [facility], [place], [address], 08/28/2023 10:36:49 08/27/19 24 08/28/2023 UA/M W/RFL X CULTU RE, ROUTI NE trichomonas ASSISTANCE SPECIALIST Not Available [facility] ([facility]) [address] [facility], [place], [address], 08/28/2023 10:36:49 08/27/19 24 08/28/2023 UA/M W/RFL X CULTU RE, ROUTI NE comment ASSISTANCE SPECIALIST Not Available [facility] ([facility]) [address] [facility], [place], [address], 08/28/2023 10:36:49 08/27/19 24 08/28/2023 UA/M W/RFL X CULTU RE, ROUTI NE urinalysis reflex COMMEN T This speci men will not refle x to a Urine Cultu re. Not Available [facility] ([facility]) [address] [place], [address], 08/28/2023 10:36:49 08/27/19 24 08/27/2023 urina lysis , dipst ick Leukocytes (reference range: negative conner/ l) Negati ve Not Available [address], [place], [address], 08/27/2023 11:10:00 08/27/19 24 08/27/2023 urina lysis , dipst ick Nitrite (reference rage: negative mg/dl) negati ve Not Available [address], [place], [address], 08/27/2023 11:10:00 08/27/19 24 08/27/2023 urina lysis , dipst ick Urobilinogen (reference range: 0.2-1 mg/dl) 0.2 Not Available [address], [place], [address], 08/27/2023 11:10:00 08/27/19 24 08/27/2023 urina lysis , dipst ick Protein (reference range: negative mg/dl) Negati ve Not Available [address], [place], [address], 08/27/2023 11:10:00 08/27/19 24 08/27/2023 urina lysis , dipst ick pH (reference range: 5-7) 6.0 Not Available [address], [place], [address], 08/27/2023 11:10:00 08/27/19 24 08/27/2023 urina lysis , dipst ick Blood (reference range: negative Chester/ l) Negati ve Not Available [address], [place], [address], 08/27/2023 11:10:00 08/27/19 24 08/27/2023 urina lysis , dipst ick Specific Echo (reference range: 1.005-1.030) 1.005 Not Available [address], [place], [address], 08/27/2023 11:10:00 08/27/19 24 08/27/2023 urina lysis , dipst ick Ketone (reference range: negative mg/dl) Negati ve Not Available [address], [place], [address], 08/27/2023 11:10:00 08/27/19 24 08/27/2023 urina lysis , dipst ick Bilirubin (reference range: negative mg/dl) Negati ve Not Available [address], [place], [address], 08/27/2023 11:10:00 08/27/19 24 08/27/2023 urina lysis , dipst ick Glucose (reference range: negative mg/dl) 100 Not Available [address], [place], [address], 08/27/2023 11:10:00 08/27/19 24 08/27/2023 urina lysis , dipst ick Appearance Clear Not Available [address], [place], [address], 08/27/2023 11:10:00 08/27/19 24 08/27/2023 urina lysis , dipst ick Color Yellow Not Available [address], [place], [address], 08/27/2023 11:10:00 09/03/19 24 09/03/2023 urina lysis , dipst ick Leukocytes (reference range: negative conner/ l) Negati ve Not Available [address], [place], [address], 09/03/2023 10:33:53 09/03/19 24 09/03/2023 urina lysis , dipst ick Nitrite (reference rage: negative mg/dl) negati ve Not Available [address], [place], [address], 09/03/2023 10:33:53 09/03/19 24 09/03/2023 urina lysis , dipst ick Urobilinogen (reference range: 0.2-1 mg/dl) 0.2 Not Available [address], [place], [address], 09/03/2023 10:33:53 09/03/19 24 09/03/2023 urina lysis , dipst ick Protein (reference range: negative mg/dl) Negati ve Not Available [address], [place], [address], 09/03/2023 10:33:53 09/03/19 24 09/03/2023 urina lysis , dipst ick pH (reference range: 5-7) 5.5 Not Available [address], [place], [address], 09/03/2023 10:33:53 09/03/19 24 09/03/2023 urina lysis , dipst ick Blood (reference range: negative Chester/ l) Small Not Available [address], [place], [address], 09/03/2023 10:33:53 09/03/19 24 09/03/2023 urina lysis , dipst ick Specific Echo (reference range: 1.005-1.030) 1.025 Not Available [address], [place], [address], 09/03/2023 10:33:53 09/03/19 24 09/03/2023 urina lysis , dipst ick Ketone (reference range: negative mg/dl) Negati ve Not Available [address], [place], [address], 09/03/2023 10:33:53 09/03/19 24 09/03/2023 urina lysis , dipst ick Bilirubin (reference range: negative mg/dl) Negati ve Not Available [address], [place], [address], 09/03/2023 10:33:53 09/03/19 24 09/03/2023 urina lysis , dipst ick Glucose (reference range: negative mg/dl) Negati ve Not Available [address], [place], [address], 09/03/2023 10:33:53 09/03/19 24 09/03/2023 urina lysis , dipst ick Appearance Clear Not Available [address], [place], [address], 09/03/2023 10:33:53 09/03/19 24 09/03/2023 urina lysis , dipst ick Color Yellow Not Available [address], [place], [address], 09/03/2023 10:33:53 10/16/19 24 10/17/2023 CBC WITH DIFFE RENTI AL/PL ATELE T WBC 6.5 x10e3 /uL 3.4-10 .8 Not Available [facility] ([facility]) [address] [facility], [place], [address], 10/18/2023 04:10:03 10/16/19 24 10/17/2023 CBC WITH DIFFE RENTI AL/PL ATELE T RBC 4.74 x10e6 /uL 3.77-5 .28 Not Available [facility] ([facility]) [address] [facility], [place], [address], 10/18/2023 04:10:03 10/16/19 24 10/17/2023 CBC WITH DIFFE RENTI AL/PL ATELE T hemoglobin 14.4 g/dL 11.1-1 5.9 Not Available [facility] ([facility]) [address] [place], [address], 10/18/2023 04:10:03 10/16/19 24 10/17/2023 CBC WITH DIFFE RENTI AL/PL ATELE T hematocrit 42.6 % 34.0-4 6.6 Not Available [facility] ([facility]) [address] [place], [address], 10/18/2023 04:10:03 10/16/19 24 10/17/2023 CBC WITH DIFFE RENTI AL/PL ATELE T MCV 90 fL 79-97 Not Available [facility] ([facility]) [address] [place], [address], 10/18/2023 04:10:03 10/16/19 24 10/17/2023 CBC WITH DIFFE RENTI AL/PL ATELE T MCH 30.4 pg 26.6-3 3.0 Not Available [facility] ([facility]) [address] [place], [address], 10/18/2023 04:10:03 10/16/19 24 10/17/2023 CBC WITH DIFFE RENTI AL/PL ATELE T MCHC 33.8 g/dL 31.5-3 5.7 Not Available [facility] ([facility]) [address] [place], [address], 10/18/2023 04:10:03 10/16/19 24 10/17/2023 CBC WITH DIFFE RENTI AL/PL ATELE T RDW 13.1 % 11.7-1 5.4 Not Available [facility] ([facility]) [address] [facility], [place], [address], 10/18/2023 04:10:03 10/16/19 24 10/17/2023 CBC WITH DIFFE RENTI AL/PL ATELE T platelets 265 x10e3 /uL 150-45 0 Not Available [facility] ([facility]) [address] [facility], [place], [address], 10/18/2023 04:10:03 10/16/19 24 10/17/2023 CBC WITH DIFFE RENTI AL/PL ATELE T neutrophils 35 % not estab. Not Available [facility] ([facility]) [address] [facility], [place], [address], 10/18/2023 04:10:03 10/16/19 24 10/17/2023 CBC WITH DIFFE RENTI AL/PL ATELE T lymphs 50 % not estab. Not Available [facility] ([facility]) [address] [facility], [place], [address], 10/18/2023 04:10:03 10/16/19 24 10/17/2023 CBC WITH DIFFE RENTI AL/PL ATELE T monocytes 8 % not estab. Not Available [facility] ([facility]) [address] [facility], [place], [address], 10/18/2023 04:10:03 10/16/19 24 10/17/2023 CBC WITH DIFFE RENTI AL/PL ATELE T eos 6 % not estab. Not Available [facility] ([facility]) [address] [facility], [place], [address], 10/18/2023 04:10:03 10/16/19 24 10/17/2023 CBC WITH DIFFE RENTI AL/PL ATELE T basos 1 % not estab. Not Available [facility] ([facility]) [address] [place], [address], 10/18/2023 04:10:03 10/16/19 24 10/17/2023 CBC WITH DIFFE RENTI AL/PL ATELE T immature cells ASSISTANCE SPECIALIST Not Available [facility] ([facility]) [address] [place], [address], 10/18/2023 04:10:03 10/16/19 24 10/17/2023 CBC WITH DIFFE RENTI AL/PL ATELE T neutrophils (absolute) 2.3 x10e3 /uL 1.4-7. 0 Not Available [facility] ([facility]) [address] [facility], [place], [address], 10/18/2023 04:10:03 10/16/19 24 10/17/2023 CBC WITH DIFFE RENTI AL/PL ATELE T lymphs (absolute) 3.3 x10e3 /uL 0.7-3. 1 above high normal Not Available [facility] ([facility]) [address] [place], [address], 10/18/2023 04:10:03 10/16/19 24 10/17/2023 CBC WITH DIFFE RENTI AL/PL ATELE T monocytes(ab solute) 0.5 x10e3 /uL 0.1-0. 9 Not Available [facility] ([facility]) [address] [place], [address], 10/18/2023 04:10:03 10/16/19 24 10/17/2023 CBC WITH DIFFE RENTI AL/PL ATELE T eos (absolute) 0.4 x10e3 /uL 0.0-0. 4 Not Available [facility] ([facility]) [address] [place], [address], 10/18/2023 04:10:03 10/16/19 24 10/17/2023 CBC WITH DIFFE RENTI AL/PL ATELE T baso (absolute) 0.1 x10e3 /uL 0.0-0. 2 Not Available [facility] ([facility]) [address] [facility], [place], [address], 10/18/2023 04:10:03 10/16/19 24 10/17/2023 CBC WITH DIFFE RENTI AL/PL ATELE T immature granulocytes 0 % not estab. Not Available [facility] ([facility]) [address] [facility], [place], [address], 10/18/2023 04:10:03 10/16/19 24 10/17/2023 CBC WITH DIFFE RENTI AL/PL ATELE T immature grans (abs) 0.0 x10e3 /uL 0.0-0. 1 Not Available [facility] ([facility]) [address] [facility], [place], [address], 10/18/2023 04:10:03 10/16/19 24 10/17/2023 CBC WITH DIFFE RENTI AL/PL ATELE T NRBC ASSISTANCE SPECIALIST Not Available [facility] ([facility]) [address] [facility], [place], [address], 10/18/2023 04:10:03 10/16/19 24 10/17/2023 CBC WITH DIFFE RENTI AL/PL ATELE T hematology comments: ASSISTANCE SPECIALIST Not Available [facility] ([facility]) [address] [facility], [place], [address], 10/18/2023 04:10:03 10/16/19 24 10/17/2023 COMP. METAB OLIC PANEL (14) glucose 86 mg/dL 70-99 Not Available [facility] ([facility]) [address] [place], [address], 10/18/2023 04:10:05 10/16/19 24 10/17/2023 COMP. METAB OLIC PANEL (14) BUN 22 mg/dL 8-27 Not Available [facility] ([facility]) [address] [facility] [place], [address], 10/18/2023 04:10:05 10/16/19 24 10/17/2023 COMP. METAB OLIC PANEL (14) creatinine 0.90 mg/dL 0.57-1 .00 Not Available [facility] ([facility]) [address] [facility] [place], [address], 10/18/2023 04:10:05 10/16/19 24 10/17/2023 COMP. METAB OLIC PANEL (14) eGFR 72 mL/mi n/1.7 3 >59 Not Available [facility] ([facility]) [address] [facility] [place], [address], 10/18/2023 04:10:05 10/16/19 24 10/17/2023 COMP. METAB OLIC PANEL (14) BUN/creatini ne ratio 24 12-28 Not Available [facility] ([facility]) [address] [facility] [place], [address], 10/18/2023 04:10:05 10/16/19 24 10/17/2023 COMP. METAB OLIC PANEL (14) sodium 136 mmol/ L 134-14 4 Not Available [facility] ([facility]) [address] [facility] [place], [address], 10/18/2023 04:10:05 10/16/19 24 10/17/2023 COMP. METAB OLIC PANEL (14) potassium 4.7 mmol/ L 3.5-5. 2 Not Available [facility] ([facility]) [address] [facility] [place], [address], 10/18/2023 04:10:05 10/16/19 24 10/17/2023 COMP. METAB OLIC PANEL (14) chloride 99 mmol/ L 96-106 Not Available [facility] ([facility]) [address] [facility] [place], [address], 10/18/2023 04:10:05 10/16/19 24 10/17/2023 COMP. METAB OLIC PANEL (14) carbon dioxide, total 25 mmol/ L Not Available [facility] ([facility]) [address] [place] [place], [place], [address], 10/18/2023 04:10:05 10/16/19 24 10/17/2023 COMP. METAB OLIC PANEL (14) calcium 9.2 mg/dL 8.7-10 .3 Not Available [facility] ([facility]) [address], [place], [address], 10/18/2023 04:10:05 10/16/19 24 10/17/2023 COMP. METAB OLIC PANEL (14) protein, total 7.1 g/dL 6.0-8. 5 Not Available [facility] ([facility]) [address], [place], [address], 10/18/2023 04:10:05 10/16/19 24 10/17/2023 COMP. METAB OLIC PANEL (14) albumin 4.3 g/dL 3.9-4. 9 Not Available [facility] ([facility]) [address] [place], [address], 10/18/2023 04:10:05 10/16/19 24 10/17/2023 COMP. METAB OLIC PANEL (14) globulin, total 2.8 g/dL 1.5-4. 5 Not Available [facility] ([facility]) [address] [place], [address], 10/18/2023 04:10:05 10/16/19 24 10/17/2023 COMP. METAB OLIC PANEL (14) A/G ratio 1.5 1.2-2. 2 Not Available [facility] ([facility]) [address] [place], [address], 10/18/2023 04:10:05 10/16/19 24 10/17/2023 COMP. METAB OLIC PANEL (14) bilirubin, total 0.5 mg/dL 0.0-1. 2 Not Available [facility] ([facility]) [address], [place], [address], 10/18/2023 04:10:05 10/16/19 24 10/17/2023 COMP. METAB OLIC PANEL (14) alkaline phosphatase 82 IU/L 44-121 Not Available [facility] ([facility]) [address], [place], [address], 10/18/2023 04:10:05 10/16/19 24 10/17/2023 COMP. METAB OLIC PANEL (14) AST (SGOT) 22 IU/L 0-40 Not Available [facility] ([facility]) [address], [place], [address], 10/18/2023 04:10:05 10/16/19 24 10/17/2023 COMP. METAB OLIC PANEL (14) ALT (SGPT) 17 IU/L 0-32 Not Available [facility] ([facility]) [address] [place], [address], 10/18/2023 04:10:05 10/16/19 24 10/17/2023 UA/M W/RFL X CULTU REJARRETT NE specific gravity 1.017 1.005- 1.030 Not Available [facility] ([facility]) [address], [place], [address], 10/18/2023 04:10:06 10/16/19 24 10/17/2023 UA/M W/RFL X CULTU REJARRETT NE pH 5.5 5.0-7. 5 Not Available [facility] ([facility]) [address], [place], [address], 10/18/2023 04:10:06 10/16/19 24 10/17/2023 UA/M W/RFL X CULTU RE ROUTMary NE urine-color YELLOW yellow Not Available [facility] ([facility]) [address] [place], [address], 10/18/2023 04:10:06 10/16/19 24 10/17/2023 UA/M W/RFL X CULTU RE ROUTMary NE appearance CLEAR clear Not Available [facility] ([facility]) [address] [place], [address], 10/18/2023 04:10:06 10/16/19 24 10/17/2023 UA/M W/RFL X CULTU REJARRETT NE WBC esterase 2+ negati ve abnormal Not Available [facility] ([facility]) [address] [place], [address], 10/18/2023 04:10:06 10/16/19 24 10/17/2023 UA/M W/RFL X CULTU REJARRETT NE protein NEGATI VE negati ve/tra ce Not Available [facility] ([facility]) [address] [place], [address], 10/18/2023 04:10:06 10/16/19 24 10/17/2023 UA/M W/RFL X CULTAlaina REJRARETT NE glucose NEGATI VE negati ve Not Available [facility] ([facility]) [address] [place], [address], 10/18/2023 04:10:06 10/16/19 24 10/17/2023 UA/M W/RFL X CULTU REJARRETT NE ketones NEGATI VE negati ve Not Available [facility] ([facility]) [address] [place], [address], 10/18/2023 04:10:06 10/16/19 24 10/17/2023 UA/M W/RFL X CULTU RE, ROUTI NE occult blood NEGATI VE negati ve Not Available [facility] ([facility]) [address] [facility], [place], [address], 10/18/2023 04:10:06 10/16/19 24 10/17/2023 UA/M W/RFL X CULTU RE, ROUTI NE bilirubin NEGATI VE negati ve Not Available [facility] ([facility]) [address] [facility], [place], [address], 10/18/2023 04:10:06 10/16/19 24 10/17/2023 UA/M W/RFL X CULTU RE, ROUTI NE urobilinogen ,semi-qn 0.2 mg/dL 0.2-1. 0 Not Available [facility] ([facility]) [address] [facility], [place], [address], 10/18/2023 04:10:06 10/16/19 24 10/17/2023 UA/M W/RFL X CULTU RE, ROUTI NE nitrite, urine NEGATI VE negati ve Not Available [facility] ([facility]) [address] [facility], [place], [address], 10/18/2023 04:10:06 10/16/19 24 10/17/2023 UA/M W/RFL X CULTU RE, ROUTI NE microscopic examination SEE BELOW: Micro scopi c was indic ated and was perfo rmed. Not Available [facility] ([facility]) [address] [place], [address], 10/18/2023 04:10:06 10/16/19 24 10/17/2023 UA/M W/RFL X CULTU RE, ROUTI NE WBC 6-10 /hpf 0 - 5 abnormal Not Available [facility] ([facility]) [address] [facility], [place], [address], 10/18/2023 04:10:06 10/16/19 24 10/17/2023 UA/M W/RFL X CULTU RE, ROUTI NE RBC 0-2 /hpf 0 - 2 Not Available [facility] ([facility]) [address] [facility], [place], [address], 10/18/2023 04:10:06 10/16/19 24 10/17/2023 UA/M W/RFL X CULTU RE, ROUTI NE epithelial cells (non renal) NONE SEEN /hpf 0 - 10 Not Available [facility] ([facility]) [address] [facility], [place], [address], 10/18/2023 04:10:06 10/16/19 24 10/17/2023 UA/M W/RFL X CULTU RE, ROUTI NE epithelial cells (renal) ASSISTANCE SPECIALIST Not Available [facility] ([facility]) [address] [facility], [place], [address], 10/18/2023 04:10:06 10/16/19 24 10/17/2023 UA/M W/RFL X CULTU RE, ROUTI NE casts NONE SEEN /lpf none seen Not Available [facility] ([facility]) [address] [facility], [place], [address], 10/18/2023 04:10:06 10/16/19 24 10/17/2023 UA/M W/RFL X CULTU RE, ROUTI NE cast type ASSISTANCE SPECIALIST Not Available [facility] ([facility]) [address] [facility], [place], [address], 10/18/2023 04:10:06 10/16/19 24 10/17/2023 UA/M W/RFL X CULTU RE, ROUTI NE crystals ASSISTANCE SPECIALIST Not Available [facility] ([facility]) [address] [place], [address], 10/18/2023 04:10:06 10/16/19 24 10/17/2023 UA/M W/RFL X CULTU RE, ROUTI NE crystal type ASSISTANCE SPECIALIST Not Available [facility] ([facility]) [address] [place], [address], 10/18/2023 04:10:06 10/16/19 24 10/17/2023 UA/M W/RFL X CULTJARRETT HUA mucus threads ASSISTANCE SPECIALIST Not Available [facility] ([facility]) [address], [place], [address], 10/18/2023 04:10:06 10/16/19 24 10/17/2023 UA/M W/RFL X CULTU REJARRETT bacteria NONE SEEN none seen/f ew Not Available [facility] ([facility]) [address] [facility], [place], [address], 10/18/2023 04:10:06 10/16/19 24 10/17/2023 UA/M W/RFL X CULTAlaina REJARRETT yeast ASSISTANCE SPECIALIST Not Available [facility] ([facility]) [address] [facility], [place], [address], 10/18/2023 04:10:06 10/16/19 24 10/17/2023 UA/M W/RFL X CULTJARRETT HUA trichomonas ASSISTANCE SPECIALIST Not Available [facility] ([facility]) [address] [facility], [place], [address], 10/18/2023 04:10:06 10/16/19 24 10/17/2023 UA/M W/RFL X CULTJARRETT HUA comment ASSISTANCE SPECIALIST Not Available [facility] ([facility]) [address] [facility], [place], [address], 10/18/2023 04:10:06 10/16/19 24 10/17/2023 UA/M W/RFL X CULTJARRETT HUA microscopic examination ASSISTANCE SPECIALIST Not Available [facility] ([facility]) [address] [facility], [place], [address], 10/18/2023 04:10:06 10/16/19 24 10/17/2023 UA/M W/RFL X CULTU RE, ROUTI NE urinalysis reflex COMMEN T This speci men has refle xed to a Urine Cultu re. Not Available [facility] ([facility]) [address] [facility], [place], [address], 10/18/2023 04:10:06 10/16/19 24 10/18/2023 UA/M W/RFL X CULTU RE, ROUTI NE urine culture, routine FINAL REPORT Not Available [facility] ([facility]) [address] [facility], [place], [address], 10/18/2023 04:10:06 10/16/19 24 10/18/2023 UA/M W/RFL X CULTU RE, ROUTI NE result 1 NO GROWTH Not Available [facility] ([facility]) [address] [facility], [place], [address], 10/18/2023 04:10:06 10/16/19 24 10/17/2023 TSH TSH 4.520 uIU/m L 0.450- 4.500 above high normal Not Available [facility] ([facility]) [address] [facility], [place], [address], 10/18/2023 04:10:08 10/16/19 24 10/17/2023 FOLAT E (FOLI C ACID) , SERUM folate (folic acid), serum >20.0 NG/mL >3.0 A serum folat e yasmany ntrat ion of less than 3.1 ng/mL is consi dered to repre sent clini tristen defic iency . Not Available [facility] ([facility]) [address] [facility], [place], [address], 10/18/2023 04:10:08 10/16/19 24 10/17/2023 VITAM IN B12 vitamin B12 843 pg/mL 232-12 45 Not Available [facility] ([facility]) [address] [facility], [place], [address], 10/18/2023 04:10:09 10/16/19 24 10/16/2023 urina lysis , dipst ick Leukocytes (reference range: negative conner/ l) Small Not Available [address], [place], [address], 10/16/2023 08:14:22 10/16/19 24 10/16/2023 urina lysis , dipst ick Nitrite (reference rage: negative mg/dl) negati ve Not Available [address], [place], [address], 10/16/2023 08:14:22 10/16/19 24 10/16/2023 urina lysis , dipst ick Urobilinogen (reference range: 0.2-1 mg/dl) 0.2 Not Available [address], [place], [address], 10/16/2023 08:14:22 10/16/19 24 10/16/2023 urina lysis , dipst ick Protein (reference range: negative mg/dl) Negati ve Not Available [address], [place], [address], 10/16/2023 08:14:22 10/16/19 24 10/16/2023 urina lysis , dipst ick pH (reference range: 5-7) 5.5 Not Available [address], [place], [address], 10/16/2023 08:14:22 10/16/19 24 10/16/2023 urina lysis , dipst ick Blood (reference range: negative Chester/ l) Hemoly zed: Trace Not Available [address], [place], [address], 10/16/2023 08:14:22 10/16/19 24 10/16/2023 urina lysis , dipst ick Specific Echo (reference range: 1.005-1.030) 1.015 Not Available [address], [place], [address], 10/16/2023 08:14:22 10/16/19 24 10/16/2023 urina lysis , dipst ick Ketone (reference range: negative mg/dl) Negati ve Not Available [address], [place], [address], 10/16/2023 08:14:22 10/16/19 24 10/16/2023 urina lysis , dipst ick Bilirubin (reference range: negative mg/dl) Negati ve Not Available [address], [place], [address], 10/16/2023 08:14:22 10/16/19 24 10/16/2023 urina lysis , dipst ick Glucose (reference range: negative mg/dl) Negati ve Not Available [address], [place], [address], 10/16/2023 08:14:22 10/16/19 24 10/16/2023 urina lysis , dipst ick Appearance Clear Not Available [address], [place], [address], 10/16/2023 08:14:22 10/16/19 24 10/16/2023 urina lysis , dipst ick Color Yellow Not Available [address], [place], [address], 10/16/2023 08:14:22 11/21/19 24 11/23/2023 UA/M W/RFL X CULTU RE, ROUTI NE specific gravity 1.009 1.005- 1.030 Not Available [facility] ([facility]) [address] [place], [address], 11/23/2023 06:18:42 11/21/19 24 11/23/2023 UA/M W/RFL X CULTU RE, ROUTI NE pH 5.0 5.0-7. 5 Not Available [facility] ([facility]) [address] [place], [address], 11/23/2023 06:18:42 11/21/19 24 11/23/2023 UA/M W/RFL X CULTU RE, ROUTI NE urine-color YELLOW yellow Not Available [facility] ([facility]) [address] [place], [address], 11/23/2023 06:18:42 11/21/19 24 11/23/2023 UA/M W/RFL X CULTU RE, ROUTI NE appearance CLEAR clear Not Available [facility] ([facility]) [address] [place], [address], 11/23/2023 06:18:42 11/21/19 24 11/23/2023 UA/M W/RFL X CULTU RE, ROUTI NE WBC esterase NEGATI VE negati ve Not Available [facility] ([facility]) [address] [place], [address], 11/23/2023 06:18:42 11/21/19 24 11/23/2023 UA/M W/RFL X CULTU RE, ROUTI NE protein NEGATI VE negati ve/tra ce Not Available [facility] ([facility]) [address] [place], [address], 11/23/2023 06:18:42 11/21/19 24 11/23/2023 UA/M W/RFL X CULTU RE, ROUTI NE glucose NEGATI VE negati ve Not Available [facility] ([facility]) [address] [facility] [place], [address], 11/23/2023 06:18:42 11/21/19 24 11/23/2023 UA/M W/RFL X CULTU RE, ROUTI NE ketones NEGATI VE negati ve Not Available [facility] ([facility]) [address] [facility], [place], [address], 11/23/2023 06:18:42 11/21/19 24 11/23/2023 UA/M W/RFL X CULTU RE, ROUTI NE occult blood NEGATI VE negati ve Not Available [facility] ([facility]) [address] [facility], [place], [address], 11/23/2023 06:18:42 11/21/19 24 11/23/2023 UA/M W/RFL X CULTU RE, ROUTI NE bilirubin NEGATI VE negati ve Not Available [facility] ([facility]) [address] [facility], [place], [address], 11/23/2023 06:18:42 11/21/19 24 11/23/2023 UA/M W/RFL X CULTU RE, ROUTI NE urobilinogen ,semi-qn 0.2 mg/dL 0.2-1. 0 Not Available [facility] ([facility]) [address] [place], [address], 11/23/2023 06:18:42 11/21/19 24 11/23/2023 UA/M W/RFL X CULTU RE, ROUTI NE nitrite, urine NEGATI VE negati ve Not Available [facility] ([facility]) [address] [place], [address], 11/23/2023 06:18:42 11/21/19 24 11/23/2023 UA/M W/RFL X CULTU RE, ROUTI NE microscopic examination COMMEN T Micro scopi c follo ws if indic ated. Not Available [facility] ([facility]) [address] [facility], [place], [address], 11/23/2023 06:18:42 11/21/19 24 11/23/2023 UA/M W/RFL X CULTU RE, ROUTI NE microscopic examination SEE BELOW: Micro scopi c was indic ated and was perfo rmed. Not Available [facility] ([facility]) [address] [facility], [place], [address], 11/23/2023 06:18:42 11/21/19 24 11/23/2023 UA/M W/RFL X CULTU RE, ROUTI NE WBC NONE SEEN /hpf 0 - 5 Not Available [facility] ([facility]) [address] [facility], [place], [address], 11/23/2023 06:18:42 11/21/19 24 11/23/2023 UA/M W/RFL X CULTU RE, ROUTI NE RBC 0-2 /hpf 0 - 2 Not Available [facility] ([facility]) [address] [facility], [place], [address], 11/23/2023 06:18:42 11/21/19 24 11/23/2023 UA/M W/RFL X CULTU RE, ROUTI NE epithelial cells (non renal) NONE SEEN /hpf 0 - 10 Not Available [facility] ([facility]) [address] [facility], [place], [address], 11/23/2023 06:18:42 11/21/19 24 11/23/2023 UA/M W/RFL X CULTU RE, ROUTI NE epithelial cells (renal) ASSISTANCE SPECIALIST Not Available [facility] ([facility]) [address] [place], [address], 11/23/2023 06:18:42 11/21/19 24 11/23/2023 UA/M W/RFL X CULTU RE, ROUTI NE casts NONE SEEN /lpf none seen Not Available [facility] ([facility]) [address] [place], [address], 11/23/2023 06:18:42 11/21/19 24 11/23/2023 UA/M W/RFL X CULTU RE, ROUTI NE cast type ASSISTANCE SPECIALIST Not Available [facility] ([facility]) [address], [place], [address], 11/23/2023 06:18:42 11/21/19 24 11/23/2023 UA/M W/RFL X CULTU RE, ROUTI NE crystals ASSISTANCE SPECIALIST Not Available [facility] ([facility]) [address] [facility], [place], [address], 11/23/2023 06:18:42 11/21/19 24 11/23/2023 UA/M W/RFL X CULTU RE, ROUTI NE crystal type ASSISTANCE SPECIALIST Not Available [facility] ([facility]) [address] [facility], [place], [address], 11/23/2023 06:18:42 11/21/19 24 11/23/2023 UA/M W/RFL X CULTU RE, ROUTI NE mucus threads ASSISTANCE SPECIALIST Not Available [facility] ([facility]) [address] [facility], [place], [address], 11/23/2023 06:18:42 11/21/19 24 11/23/2023 UA/M W/RFL X CULTU RE, ROUTI NE bacteria NONE SEEN none seen/f ew Not Available [facility] ([facility]) [address] [facility], [place], [address], 11/23/2023 06:18:42 11/21/19 24 11/23/2023 UA/M W/RFL X CULTU RE, ROUTI NE yeast ASSISTANCE SPECIALIST Not Available [facility] ([facility]) [address] [facility], [place], [address], 11/23/2023 06:18:42 11/21/19 24 11/23/2023 UA/M W/RFL X CULTU RE, ROUTI NE trichomonas ASSISTANCE SPECIALIST Not Available [facility] ([facility]) [address] [facility], [place], [address], 11/23/2023 06:18:42 11/21/19 24 11/23/2023 UA/M W/RFL X CULTU RE, ROUTI NE comment ASSISTANCE SPECIALIST Not Available [facility] ([facility]) [address] [facility], [place], [address], 11/23/2023 06:18:42 11/21/19 24 11/23/2023 UA/M W/RFL X CULTU RE, ROUTI NE urinalysis reflex COMMEN T This speci men will not refle x to a Urine Cultu re. Not Available [facility] ([facility]) [address] [facility], [place], [address], 11/23/2023 06:18:42 11/21/19 24 11/21/2023 urina lysis , dipst ick Leukocytes (reference range: negative conner/ l) Negati ve Not Available [address], [place], [address], 11/21/2023 13:44:00 11/21/19 24 11/21/2023 urina lysis , dipst ick Nitrite (reference rage: negative mg/dl) negati ve Not Available [address], [place], [address], 11/21/2023 13:44:00 11/21/19 24 11/21/2023 urina lysis , dipst ick Urobilinogen (reference range: 0.2-1 mg/dl) 0.2 Not Available [address], [place], [address], 11/21/2023 13:44:00 11/21/19 24 11/21/2023 urina lysis , dipst ick Protein (reference range: negative mg/dl) Negati ve Not Available [address], [place], [address], 11/21/2023 13:44:00 11/21/19 24 11/21/2023 urina lysis , dipst ick pH (reference range: 5-7) 5.0 Not Available [address], [place], [address], 11/21/2023 13:44:00 11/21/19 24 11/21/2023 urina lysis , dipst ick Blood (reference range: negative Chester/ l) Non-He molyze d: Trace Not Available [address], [place], [address], 11/21/2023 13:44:00 11/21/19 24 11/21/2023 urina lysis , dipst ick Specific Echo (reference range: 1.005-1.030) 1.010 Not Available [address], [place], [address], 11/21/2023 13:44:00 11/21/19 24 11/21/2023 urina lysis , dipst ick Ketone (reference range: negative mg/dl) Negati ve Not Available [address], [place], [address], 11/21/2023 13:44:00 11/21/19 24 11/21/2023 urina lysis , dipst ick Bilirubin (reference range: negative mg/dl) Negati ve Not Available [address], [place], [address], 11/21/2023 13:44:00 11/21/19 24 11/21/2023 urina lysis , dipst ick Glucose (reference range: negative mg/dl) Negati ve Not Available [facility] [address], [place], [address], 11/21/2023 13:44:00 11/21/19 24 11/21/2023 urina lysis , dipst ick Appearance Clear Not Available [facility] [address], [place], [address], 11/21/2023 13:44:00 11/21/19 24 11/21/2023 urina lysis , dipst ick Color Pale Yellow Not Available [facility] [address], [place], [address], 11/21/2023 13:44:00 12/27/19 24 12/27/2023 urina lysis , dipst ick Color Yellow Not Available [facility] [address] [place] [address] [address], [place], [address], 12/27/2023 15:06:14 12/27/19 24 12/27/2023 urina lysis , dipst ick Appearance Slight ly Cloudy Not Available [facility] [address] [place] [address] [address], [place], [address], 12/27/2023 15:06:14 12/27/19 24 12/27/2023 urina lysis , dipst ick Glucose (reference range: negative mg/dl) Negati ve Not Available [facility] [address] [place] [address] [address], [place], [address], 12/27/2023 15:06:14 12/27/19 24 12/27/2023 urina lysis , dipst ick Bilirubin (reference range: negative mg/dl) Negati ve Not Available [facility] [address] [place] [address] [address], [place], [address], 12/27/2023 15:06:14 12/27/19 24 12/27/2023 urina lysis , dipst ick Ketone (reference range: negative mg/dl) Negati ve Not Available [facility] [address], [place], [address], 12/27/2023 15:06:14 12/27/19 24 12/27/2023 urina lysis , dipst ick Specific Echo (reference range: 1.005-1.030) 1.010 Not Available [facility] [address] [place] [address] [address], [place], [address], 12/27/2023 15:06:14 12/27/19 24 12/27/2023 urina lysis , dipst ick Blood (reference range: negative Chester/ l) Non-He molyze d: Trace Not Available [facility] [address] [place] [address] [address], [place], [address], 12/27/2023 15:06:14 12/27/19 24 12/27/2023 urina lysis , dipst ick pH (reference range: 5-7) 5.5 Not Available [facility]_ [facility] [address], [place], [address], 12/27/2023 15:06:14 12/27/19 24 12/27/2023 urina lysis , dipst ick Protein (reference range: negative mg/dl) Negati ve Not Available [facility] [address] [place] [address] [address], [place], [address], 12/27/2023 15:06:14 12/27/19 24 12/27/2023 urina lysis , dipst ick Urobilinogen (reference range: 0.2-1 mg/dl) 0.2 Not Available [facility] [address], [place], [address], 12/27/2023 15:06:14 12/27/19 24 12/27/2023 urina lysis , dipst ick Nitrite (reference rage: negative mg/dl) negati ve Not Available [facility] [address] [facility] [address], [place], [address], 12/27/2023 15:06:14 12/27/19 24 12/27/2023 urina lysis , dipst ick Leukocytes (reference range: negative conner/ l) Negati ve Not Available [facility] [address] [facility] [address], [place], [address], 12/27/2023 15:06:14 09/09/19 24 09/09/2023 MAMMO , scree alexandra, digit al, bilat eral No observ ation record ed. [email or web address] [facility] [address], [place], [address], 09/09/2023 13:45:33 10/16/19 24 10/16/2023 CT, abdom en + pelvi s, w/o contr ast [facility] [address], [place] [address] Patien t Name: SHENA FIERRO Access ion #: [id number] Sex: F : 1960 0 Dictat ed By: Sarkis Andrews ms Attend ing Physic alex: DIONNE DUMONT [facility] Physic alex: DIONNE DUMONT Exam Date: 2023 08:32 AM Exam Name: CT ABD PEL WO RENAL PROTOC OL Admitt ing Diagno sis(es ): Exam: CT abdome n and Pelvis withou t contra st Histor y: Flank pain Compar hallie Study: CT scan of the abdome n pelvis perfor med on 021. Techni que: Multid etecto r spiral CT of the abdome n and pelvis was perfor med from lung bases to pubic symphy sis. Imagin g was perfor med withou t intrav enous contra st. Axial, marks l and sagitt al multip lanar reform ats were obtain ed from the axial data set by the techno logissteffen . Radiat ion Dose : 1. Abdome n/Pelv is: CTDIvo l 11.4 mGy, DLP 536.8 mGy*cm . Findin gs: Evalua tion of vascul ature and solid organs is limite d due to lack of intrav enous contra st use. Lung Bases: Lung bases are clear. Visual ized portio ns of the heart and perica rdium are unrema rkable . Liver: The liver is normal in size. No focal lesion s. Gallbl adder and Biliar y Tree: The gallbl adder is unrema rkable No intrah epatic or extrah epatic biliar y ductal dilata tion. Spleen : There are scatte red calcif icatio ns throug hout the spleen consis tent with granul omas. The spleen is normal in size. Pancre as: The pancre as is grossl y unrema rkable . Page 1 [facility] [address] [address] Patien t Name: SHENA FIERRO ion #: [id number] Sex: F : 1960 0 Dictat ed By: Sarkis Andrews ms Attend ing Physic alex: SHARONDA ALVARADO [facility] Physic alex: DIONNE DUMONT Exam Date: 2023 08:32 AM Exam Name: CT ABD PEL WO RENAL PROTOC OL Admitt ing Diagno sis(es ): Adrena l Glands : Unrema rkable Kidney s: Kidney s are unrema rkable withou t calcul i or hydron ephros is. GI tract: The stomac h is grossl y normal in appear ance.. No eviden ce of small bowel wall thicke alexandra or abnorm al dilata tion to sugges t bowel obstru ction. There is diffus e stool throug hout the colon which may indica te consti pation . There is divert iculos is of the sigmoi d colon. No eviden ce of acute divert iculit is. The append ix is visual ized and is normal in calibe r. Perito neum/m esente ry/ret roperi toneum . No eviden ce of free intrap eriton eal air. No ascite s. No eviden ce of suspic ious lympha denopa thy. Abdomi nal Wall: Unrema rkable . Vascul ature: The visual ized abdomi nal aorta is normal in size and calibe r. There are athero sclero tic calcif icatio ns in the aorta. Evalua tion of abdomi nal and pelvic vessel s is limite d due to lack of intrav enous contra st. Urinar y Bladde r: Grossl y unrema rkable for degree of disten tion. Pelvic Organs : Uterus and adnexa l struct ures are unrema rkable . Muscul oskele trey: No aggres sive focal bony lesion s, acute fractu res or disloc ation. There is kapok and cotton machine operator ior fusion in the lumbar spine at L4-L5. IMPRES LATA: 1. No acute abdomi nal or pelvic findin gs. 2. Divert iculos is of the sigmoi d colon. No eviden ce of acute divert iculit is. 3. Diffus e stool throug hout the colon which may indica te consti pation . Electr onical ly Signed by: Sarkis Andrews ms at 2023 09:01: 48 AM Page 3 [facility] (Imaging) [address] [place], [address], 10/16/2023 10:25:52 07/01/20 24 07/01/2024 XR, chest , 2 view No observ ation record ed. [email or web address] [facility] [address] [place], [address], 08/20/2024 10:08:33 Result Notes None recorded. Problems Name Problem SNOMED Code Status Onset Date Resolution Date Notes Provider Name and Address Organization Details Recorded Time Increased frequency of urination 423659893 Active Not Available [facility] 4 18:10:21 Liver function tests outside reference range 713305077 Active Not Available [facility] 4 18:10:21 Fluid level behind tympanic membrane Active Not Available [facility] 4 18:10:21 Otitis externa 9233034 Active Not Available [facility] 4 18:10:21 Hypertensi ve disorder 52880310 Active Emi Quintero APRN [address], [place], [address] , [employer] [facility] [employer] [facility] 4 21:14:23 Hypothyroi dism 89534602 Active Emi Quintero APRN [address], [place], [address] , [employer] [facility] [employer] [facility] 4 21:14:28 Temporoman dibular joint disorder 29706389 Active Emi Quintero APRN [email or web address], [place], [address] , [employer] [facility] 4 21:14:48 Acute urinary tract infection 371907225 Active Not Available [facility] 4 18:10:21 Hypokalemi a 19087751 Active Not Available [facility] 4 18:10:21 Anxiety 01427824 Active MERLY Campbell [address], [place], [address] , [employer] [facility] [employer] [facility] 4 21:14:02 Essential hypertensi on 09043526 Active Not Available [facility] 4 18:10:21 Vitamin B12 deficiency (non anemic) 29630868 Active Emi Quintero APRN [employer] [address], [place], [address] , [employer] [facility] [employer] [facility] 4 21:14:44 Urinary tract infectious disease 10983405 Active Not Available [facility] 4 18:10:21 Hemorrhoid s 30149331 Active MERLY Campbell [address], [place], [address] , [employer] [facility] 4 21:14:21 Posterior rhinorrhea 45076504 Active Not Available [facility] 4 18:10:21 Obstructiv e sleep apnea syndrome 98037108 Active 2016 Emi Quintero APRN [address], [address], [place], [address] , [employer] [facility] 4 21:14:37 Fatigue 13200614 Active Not Available [facility] 4 18:10:21 Dysuria 37600330 Active 2022 Not Available [facility] 4 18:10:21 Chronic sinusitis 67294675 Active 2022 Not Available [facility] 4 18:10:21 Chronic sinusitis 21185337 Active 2022 Not Available [facility] 4 18:10:21 Chronic maxillary sinusitis 34622513 Active 2022 Emi Quintero APRN [address], [place], [address] , [employer] [facility] 4 21:14:18 Chronic sphenoidal sinusitis 65786174 Active 2022 Emi Quintero APRN [address], [place], [address] , [employer] [facility] 4 21:14:14 Chronic ethmoidal sinusitis 00915261 Active 2022 Not Available [facility] 4 18:10:21 Postoperat leonel pain 288854597 Active 2022 Not Available [employer] 4 18:10:21 Cervical spondylosi s 420569570 Active 2022 Emi Quintero APRN [address], [place], [address] , [employer] [facility] 4 21:14:11 Rosacea 545787282 Active 2022 Emi Quintero APRN [address], [place], [address] , [place] [facility] 4 21:14:40 Pain of right shoulder joint 6608733501227 9100 Active 2022 Not Available [facility] 4 18:10:21 Low back pain 661379681 Active 2023 Emi Quintero APRN [address], [place], [address] , [facility] 4 21:14:31 Flank pain 136392434 Active 2023 Sushant Franklin MD [address], [place], [address] , [facility] 4 08:11:10 Recurrent urinary tract infection 815835418 Active 2023 Emi Quintero APRN [address], [place], [address] , [facility] 4 21:14:53 Kidney stone 01792636 Active 2023 Olive Gonzalez CMA [facility], [place] - [facility] 4 15:06:04 Overactive urinary bladder 253508264 Active 2023 Rashaad Donnelly MD [address], [place], [address] , [facility] 4 18:19:30 Atrophic vaginitis 40208553 Active 2023 Emi Quintero APRN [address], [place], [address] , [facility] 4 21:14:04 Pain in left sacroiliac joint 6936558220960 9102 Active 2023 Emi Quintero APRN [address], [place], [address] , [facility] 4 09:32:09 Problem Notes None recorded. Procedures Surgical History Date Name Laterality Status Provider Name and Address Organization Details Recorded Time 09/30/19 24 colonoscopy completed Sushant Franklin MD [address] [facility], [facility] [address], [place], [address], [facility] [employer] [facility] 11/28/2023 09:14:53 01/01/20 23 ENDOSCOPY, NASAL/SINUS, W/ SPHENOIDOTOMY (SURG) completed Pau Coughlin RN [facility] [employer] [facility] 01/09/2023 10:20:48 ENDOSCOPY, NASAL/SINUS, W/ MAXILLARY ANTROSTOMY & TISSUE REMOVAL (SURG) completed Pau Coughlin RN [facility] [employer] [facility] 01/09/2023 17:27:49 ENDOSCOPY, NASAL/SINUS, W/ TOTAL ETHMOIDECTOMY (SURG) completed Pau Coughlin RN [facility] [employer] [facility] 01/04/2023 09:05:26 Imaging Results Imaging Date Name Status LastModified by Organiz ation Details LastModified Time 09/09/2023 MAMMO, screening, digital, bilateral completed [email or web address] [place] [address] [facility] [address], [address], 09/09/2023 13:45:33 10/16/2023 CT, abdomen + pelvis, w/o contrast completed [email or web address] [facility] (Imaging) [address] [place], [address], 10/16/2023 10:25:52 07/01/2024 XR, chest, 2 view completed [email or web address] [facility] [address] [place], [address], 08/20/2024 10:08:33 Procedure Notes None recorded. Medical Equipment None Reported. Allergies Allergen ID Allergen Name Allergen Category Reaction Reaction Severity Criticality Documentation Date Start Date Code Code System Note Provider Name and Address Organization Details Recorded Time 88835 No known allergy (situatio n) Not available Not available Not available Not available 03/28/2024 23414 [id number] SNOMED Emi Quintero APRN [address] [facility], [address], [place], [address], [facility] 4 21:10:54 No known drug allergies Medications Name Sig Start Date Stop Date Status Note LastModified by Organization Details LastModified Time potassium chloride ER 10 mEq capsule,e xtended release TAKE 1 CAPSULE DAILY active Not Available Not Available No t Available cefuroxim e axetil 250 mg tablet Take 1 tablet twice a day by oral route for [address] [facility]RI[facility] CERVANT[facility] Not Available Not Available Not Available Anusol-HC 2.5 % rectal cream with applicato r Insert by rectal route one applicat or after bowel movement s and at bedtime. active Not Available Not Available No t Available oxybutyni n chloride ER 10 mg tablet,ex tended release 24 hr Take 1 tablet every day by oral route for 90 days. 2023 active Not Available Not Available Not Avai lable azithromy philippe 250 mg tablet TAKE 2 TABLETS (500 MG) BY ORAL ROUTE ONCE DAILY FOR 1 DAY THEN 1 TABLET (250 MG) BY ORAL ROUTE ONCE DAILY FOR 4 DAYS 08/20 completed Not Available Not Available Not Available fluconazo le 150 mg tablet 09/18 completed Not Available Not Available Not Available benzonata te 200 mg capsule Take 1 capsule 3 times a day by oral route as needed. active Not Available Not Available No t Available valacyclo vir 1 gram tablet TAKE 1 TABLET BY MOUTH EVERY DAY 09/24 completed Not Available Not Available Not Available clotrimaz ole-betam ethasone 1 %-0.05 % lotion active Not Available Not Available Not Available Claritin 10 mg tablet Take 1 tablet every day by oral route. 2023 active Not Available Not Available Not Avai lable meloxicam 15 mg tablet Take 1 tablet every day by oral route for 90 days. 09/24 completed Not Available Not Available Not Available phenazopy ridine 200 mg tablet active Not Available Not Available Not Available ondansetr on HCl 4 mg tablet TAKE 1 TABLET BY MOUTH EVERY 8 HOURS NEEDED FOR NAUSEA OR VOMITING 11/29 completed Not Available Not Available Not Available prednison e 20 mg tablet Take 2 tablets every day by oral route for 5 days. 03/18 completed Not Available Not Available Not Available sertralin e 100 mg tablet Take 1.5 tablets every day by oral route. active Not Available Not Available No t Available Anucort-H C 25 mg supposito ry active Not Available Not Available Not Available venlafaxi ne ER 150 mg capsule,e xtended release 24 hr TAKE 1 CAPSULE BY MOUTH EVERY DAY 09/24 completed Not Available Not Available Not Available lidocaine HCl 2 % mucosal jelly 06/20 completed Not Available Not Available Not Available acetamino phen 300 mg-codein e 30 mg tablet 06/20 completed Not Available Not Available Not Available ciproflox acin 250 mg tablet Take 1 tablet every 12 hours by oral route for 7 days. 03/18 completed Not Available Not Available Not Available amlodipin e 5 mg tablet TAKE 1 TABLET DAILY active Not Available Not Available No t Available valacyclo vir 500 mg tablet Take 1 tablet every day by oral route for 90 days. active Not Available Not Available No t Available ciproflox acin 500 mg tablet TK 1 T PO Q 12 H FOR 7 DAYS 03/18 completed Not Available Not Available Not Available sulfameth oxazole 800 mg-trimet hoprim 160 mg tablet Take 1 tablet every 12 hours by oral route for 7 days. active Not Available Not Available No t Available ciclopiro x 8 % topical solution APPLY TO AFFECTED NAILS ONCE DAILY 09/24 completed Not Available Not Available Not Available terbinafi ne HCl 250 mg tablet TK 1 T PO QD active Not Available Not Available No t Available levothyro xine 88 mcg tablet Take 1 tablet every day by oral route as directed . 2024 active Synthroi d denied by insuranc e Not Available Not Available Not Available ofloxacin 0.3 % ear drops INSTILL 5 GTS INTO AFFECTED EARS BID active Not Available Not Available No t Available amoxicill in 875 mg tablet active Not Available Not Available Not Available alprazola m 0.25 mg tablet TK 1 T PO TID PRN active Not Available Not Available No t Available Xylocaine 10 mg/mL (1 %) injection solution Take 1 mL by injectio n route. 03/13 completed Patient did well Not Available Not Available Not Available antipyrin e-benzoca ine 5.4 %-1.4 % ear drops INT 4 GTS INTO AFFECTED EARS QID active Not Available Not Available No t Available Synthroid 25 mcg tablet TAKE 1 TABLET DAILY 07/02 completed Not Available Not Available Not Available Proctozon e-HC 2.5 % topical cream perineal applicato r INSERT UTD RECTALLY AFTER BOWEL MOVEMENT S AND QHS active Not Available Not Available No t Available phenazopy ridine 100 mg tablet 03/30 completed Not Available Not Available Not Available triamcino lone acetonide 40 mg/mL suspensio n for injection Take 1 mL by injectio n route. 03/13 completed Not Available Not Available Not Available levothyro xine 50 mcg tablet active Not Available Not Available Not Available hydrocodo ne 7.5 mg-acetam inophen 325 mg tablet TAKE 1 TABLET EVERY 4-6 HOURS BY ORAL ROUTE. 07/11 completed Not Available Not Available Not Available cyanocoba herbie (vit B-12) 1,000 mcg/mL injection solution Inject 1 mL every month by intramus cular route. 02/20 completed Not Available Not Available Not Available nitrofura ntoin macrocrys trey 100 mg capsule 1 tablet 3 times a day 03/18 completed Not Available Not Available Not Available buspirone 10 mg tablet TK 1 T PO BID active Not Available Not Available No t Available hydrochlo rothiazid e 12.5 mg capsule TAKE 1 CAPSULE DAILY active Not Available Not Available No t Available mupirocin calcium 2 % topical cream RUFINA EXT AA Q 12 H 06/20 completed Not Available Not Available Not Available gabapenti n 300 mg capsule 1 po qhs 11/29 completed Not Available Not Available Not Available estradiol 2 mg tablet Insert 1 tablet in the vagina twice a week at bedtime 2024 active Not Available Not Available Not Avai lable diclofena c sodium 75 mg tablet,de layed release TK 1 T PO BID PRN 2023 active Not Available Not Available Not Avai lable hydrocort isone 2.5 % topical cream 11/29 completed Not Available Not Available Not Available monteluka st 10 mg tablet TK 1 T PO QD active Not Available Not Available No t Available mupirocin 2 % topical ointment 09/24 completed Not Available Not Available Not Available fluocinol one 0.01 % topical solution 11/29 completed Not Available Not Available Not Available epinephri ne 0.3 mg/0.3 mL injection , auto-inje ctor 03/30 completed Not Available Not Available Not Available methylpre dnisolone 4 mg tablets in a dose pack FPD active Not Available Not Available Not Available albuterol sulfate HFA 90 mcg/actua tion aerosol inhaler INL 2 PFS PO Q 4 H PRN 2023 active Not Available Not Available Not Avai lable cefdinir 300 mg capsule TAKE 1 CAPSULE BY MOUTH TWICE DAILY 11/29 completed Not Available Not Available Not Available fluticaso ne propionat e 50 mcg/actua tion nasal spray,tracy pension [place] 1 spray every day by intranas al route. active Not Available Not Available No t Available metronida zole 0.75 % topical gel apply to face qday 2023 active Not Available Not Available Not Avai lable diazepam 5 mg tablet TAKE 1 TABLET BY MOUTH EVERY NIGHT AT BEDTIME 11/29 completed prn Not Available Not Available Not Available amoxicill in 875 mg-potass ium clavulana te 125 mg tablet Take 1 tablet every 12 hours by oral route for 10 days. 08/20 completed Not Available Not Available Not Available buspirone 15 mg tablet Take 0.5 tablets twice a day by oral route as directed . 2023 active Not Available Not Available Not Avai lable neomycin- polymyxin -hydrocor t 3.5 mg-10,000 unit/mL-1 % ear drops,tracy p active Not Available Not Available Not Available escitalop mitesh 10 mg tablet Take 1 tablet every day by oral route as directed . 2024 active Not Available Not Available Not Avai lable cyclobenz aprine 5 mg tablet 1 po tid prn spasm 2023 active Not Available Not Available Not Avai lable Ciprodex 0.3 %-0.1 % ear drops,tracy pension INSTILL 4 GTS INTO AD BID active Not Available Not Available No t Available nitrofura ntoin monohydra te/macroc rystals 100 mg capsule Take 1 capsule every 12 hours by oral route for 7 days. 03/18 completed Not Available Not Available Not Available Cymbalta 30 mg capsule,d elayed release active Not Available Not Available Not Available Xyzal 5 mg tablet Take 1 tablet every day by oral route. active Not Available Not Available No t Available Arnuity Ellipta 100 mcg/actua tion powder for inhalatio n Inhale 1 inhalati on every day by inhalati on route as directed . 2024 active Not Available Not Available Not Avai lable Soolantra 1 % topical cream apply qday to face 09/24 completed Not Available Not Available Not Available Trintelli x 5 mg tablet Take 1 tablet every day by oral route. 09/15 completed Not Available Not Available Not Available Trintelli x 10 mg tablet 11/29 completed Not Available Not Available Not Available Vitals Date Recorded Body height Body mass index (BMI) Body weight Body temperature Heart rate Oxygen saturation Oxygen saturation in Arterial blood by Pulse oximetry Systolic blood pressure Diastolic blood pressure Provider Name and Address Organization Details Last Updated DateTime 4 160.02 cm 25.7 kg/m2 20940.8 9 g 97.4 [degF] 70 /min 98 % 98 % 128 mm[Hg] 76 mm[Hg] Berta Haley RN [facility] [employer] 4 08:04:50 Date Recorded Body height Body mass index (BMI) Body weight Body temperature Heart rate Oxygen saturation Oxygen saturation in Arterial blood by Pulse oximetry Systolic blood pressure Diastolic blood pressure Provider Name and Address Organization Details Last Updated DateTime 4 160.02 cm 26.4 kg/m2 65748.2 6 g 97.2 [degF] 71 /min 98 % 98 % 140 mm[Hg] 77 mm[Hg] Olive Gonzalez CMA [employer] 4 15:19:40 Date Recorded Body height Body mass index (BMI) Body weight Body temperature Heart rate Oxygen saturation Oxygen saturation in Arterial blood by Pulse oximetry Pain severity - 0-10 verbal numeric rating [Score] - Reported Systolic blood pressure Diastolic blood pressure Provider Name and Address Organization Details Last Updated DateTime 4 160.02 cm 27.1 kg/m2 77997.6 3 g 98.2 [degF] 68 /min 97 % 97 % 8 130 mm[Hg] 72 mm[Hg] Analilia Nuñez MA [place] [employer] 4 09:08:27 Social History Question Answer Notes LastModified by Organization Details LastModified Time Tobacco Smoking Status Never Smoker Not Available [facility] 09/12/2022 00:48:42 What Is Your Level Of Alcohol Consumption? Occasional Information not available 03/30/2024 What Is Your Level Of Caffeine Consumption? Moderate [id number] Information not available 09/12/2022 How Much Tobacco Do You Chew? None [id number] Information not available 09/12/2022 In The 14 Days Before Symptom Onset, Have You Had Close Contact With A Laboratory-confi rmed COVID-19 While That Case Was Ill? No [id number] Information not available 09/12/2022 In The 14 Days Before Symptom Onset, Have You Had Close Contact With A Person Who Is Under Investigation For COVID-19 While That Person Was Ill? No [id number] Information not available 09/12/2022 Are You Currently Employed? No Retired Information not available 03/30/2024 What Type Of Diet Are You Following? REGULAR [id number] Information not available 09/12/2022 Which Illicit Or Recreational Drugs Have You Used? No [id number] Information not available 09/12/2022 Do You Or Have You Ever Used E-cigarettes Or Vape? Never Used Electronic Cigarettes [id number] Information not available 09/12/2022 What Is Your Occupation? Retired Information not available 03/30/2024 Have There Been Any Changes To Your Family Or Social Situation? No Information not available 03/30/2024 Do You Use Insect Repellent Routinely? No Information not available 03/30/2024 Where Do You Live? SingleLevelHouse Information not available 03/30/2024 What Was The Date Of Your Most Recent Tobacco Screening? 03/30/2024 Information not available 03/30/2024 How Many Children Do You Have? 0 Information not available 03/30/2024 Do You Have Any Pets? Yes Information not available 03/30/2024 What Is Your Relationship Status? Information not available 03/30/2024 Do You Use Your Seat Belt Or Car Seat Routinely? Yes Information not available 03/30/2024 Do You Have Smoke And Carbon Monoxide Detectors In Your Home? Yes Information not available 03/30/2024 Are You Passively Exposed To Smoke? No Information not available 03/30/2024 Do You Or Have You Ever Used Smokeless Tobacco? Never Used Smokeless Tobacco [id number] Information not available 09/12/2022 Are There Any Smokers In Your House? No Information not available 03/30/2024 How Much Tobacco Do You Smoke? No [id number] [id number] Information not available 09/12/2022 Do You Feel Stressed (tense, Restless, Nervous, Or Anxious, Or Unable To Sleep At Night)? [id number] Information not available 03/30/2024 Do You Use Any Illicit Or Recreational Drugs? No Information not available 03/30/2024 Do You Use Sunscreen Routinely? No Information not available 03/30/2024 Have You Recently Traveled Abroad? No [id number] Information not available 09/12/2022 Do You Have Any Dietary Restrictions? No [id number] Information not available 09/12/2022 Sex: Unknown Functional Status Question Answer Note LastModified by Organizat ion Details LastModified Time What is your exercise level? Moderate [id number] Information not available 09/12/2022 Mental Status None recorded. Family History Relationship Description Onset Age of this Age Resolved Age Notes LastModified by Organization Details LastModified Time Father No current problems or disability [email or web address] Not available 11/14 12:18:21 Mother No current problems or disability [email or web address] Not available 11/14 12:18:21 Medical History Condition Response BLINDNESS N RHEUMATIC FEVER N KIDNEY STONES N BLADDER PROBLEMS N MRSA N OTHER # 1 N POLIO N LUNG DISEASE/DISORDER N RADIATION / CHEMOTHERAPY N COPD N Other # 2 N BLOOD DISEASES N SURGERY N EAR OR HEARING PROBLEMS N MUMPS N FEMALE PROBLEMS / INFECTIONS N DEPRESSION (INCLUDING POST ) N BOWEL PROBLEMS N STROKE/TIA N THYROID DISEASE N ULCERS N BENIGN PROSTATIC HYPERPLASIA N MEASLES N CERVICALGIA N TB SKIN TEST N MYOCARDIAL INFARCTION N PARAPELGIA N OBESITY N GERD/NAUSEA N ANEURYSM N URINARY/BLADDER/KIDNEY PROBLEMS N CORONARY ARTERY DISEASE (CAD) N MENIERE'S DISEASE N ADDICTION CONCERNS N ENDOMETRIOSIS N USE OF BLOOD THINNERS N SKIN PROBLEMS N EMPHYSEMA N GASTROINTESTINAL DISORDER N MUSCLE,JOINT OR BONE PROBLEMS N GASTROINTESTINAL BLEEDING N BLOOD CLOTS N ASTHMA N CATARACTS N ERECTILE DYSFUNCTION N GI PROBLEMS N CHF N Low Testosterone N NEUROPATHY N INFERTILITY N AIDS/HIV N FRACTURES N CHEMOTHERAPY / RADIATION N VISION/EYE PROBLEMS N LIVER DISEASE N MALE HYPOGONADISM N HYPERTENSION N TOURETTE'S N ANXIETY DISORDER N BLOOD TRANSFUSION N ANEMIA/BLOOD DISORDER N CHRONIC EAR INFECTIONS N BRONCHITIS N TUBERCULOSIS N GLAUCOMA N FOOT PROBLEM N DIVERTICULITIS N SLEEP APNEA N CHICKENPOX N ALLERGIES/HAYFEVER N INFECTIOUS DISEASE N PROSTATE N HEART ARRHYTHMIA N INSOMNIA N HIGH CHOLESTEROL / HYPERLIPIDEMIA N HYPERTHYROIDISM N EYE PROBLEMS N EATING DISORDER N EDEMA N CHRONIC PAIN SYNDROME N CONSTIPATION N CAROTID BLOCKAGE N BACK / NECK PROBLEMS N HAVE YOU BEEN HOSPITALIZED OR SEEN IN [facility] IN THE PAST YEAR ? N ATHEROSCLEROSIS N BREAST PROBLEMS N DIALYSIS N ECZEMA N FIBROMYALGIA N OSTEOPOROSIS N ARTHRITIS N NO SIGNIFICANT PAST MEDICAL HISTORY N APPENDICITIS N DIABETES, TYPE N BAD TEETH N HEARTBURN / REFLUX N ADD/ADHD N AUTISM SPECTRUM DISORDER (ASD) N HEPATITIS / LIVER DISEASE N PULMONARY DISEASE N GOUT N SLEEP DISORDER N ALZHEIMER'S DISEASE N PAIN N HERPES N DEMENTIA N SEIZURES/EPILEPSY N HEADACHES/MIGRAINES N VASCULAR DISEASE N PACEMAKER N DIZZINESS N KIDNEY DISEASE N HEART DISEASE/HEART PROBLEMS N SCARLET FEVER N MULTIPLE SCLEROSIS N MENTAL DISORDER/ILLNESS N DEVELOPMENTAL OR BEHAVIORAL DISORDERS N CARDIAC ARRHYTHMIA N CANCER: SPECIFY N PNEUMONIA N Gall Stones N ATRIAL FIBRILLATION N PULMONARY EMBOLISM N AUTOIMMUNE DISEASE N Gynecological History Statement/Question Response How many live births 1 Date of Last Colonoscopy Date of Last Mammogram Date of LMP Date of Last Pap Current Control Method Menopause Breast Problems no Obstetrics History GPAL:G 1 P 1 0 0 1 Type Value Multiple Births 0 Full Term 1 Induced 0 Spontaneous 0 Premature 0 Living 1 Ectopics 0 Total 1 Immunizations Vaccine Type Date Status Note Provider Nam e and Address Organization Details Recorded Time zoster recombinant 3 completed Emi Quintero APRN [address] [facility] [address], [place], [address], [facility] [employer] 03/28/2024 21:10:33 zoster recombinant 3 jassi Quintero APRN [address], [place], [address], [facility] [employer] [facility] [employer] [facility] 03/28/2024 21:10:33 COVID-19, mRNA, LNP-S, PF, 100 mcg/0.5mL dose or 50 mcg/0.25mL dose 2 completed Emi Quintero APRN [address], [address], [place], [address], [facility] [employer] [facility] [employer] [facility] 03/28/2024 21:10:33 COVID-19, mRNA, LNP-S, PF, 100 mcg/0.5mL dose or 50 mcg/0.25mL dose 1 completed Emi Quintero APRN [address], [place], [address], [employer] [facility] [employer] [facility] 03/28/2024 21:10:33 Hep A-Hep B 3 completed Emi Quintero APRN [address], [address], [place], [address], [employer] [facility] [employer] [facility] 03/28/2024 21:10:33 Hep A-Hep B 3 completed Emi Quintero APRN [address], [address], [place], [address], [employer] [facility] [employer] [facility] 03/28/2024 21:10:33 Hep A-Hep B 3 completed Emi Quintero APRN [address], [place], [address], [facility] [employer] [facility] [employer] [facility] 03/28/2024 21:10:33 Tdap 4 completed Not Available [facility] 08/16/2023 18:10:22 Influenza, split virus, quadrivalent, PF 9 completed Not Available [facility] 08/16/2023 18:10:22 Influenza, split virus, quadrivalent, PF 0 completed Not Available [facility] 08/16/2023 18:10:22 Past Encounters Encounter ID Performer Location Encounter Start Date Encounter Closed Date Diagnosis/Indication Diagnosis SNOMED-CT Code Diagnosis ICD10 Code Diagnosis Note [id number] [facility] [place] [address] [place] [address] 09/15/2020 00:00:00 10/05/2020 18:09:22 [id number] [facility] [place] [address] [place] [address] 09/19/2020 00:00:00 09/27/2020 13:52:50 [id number] [facility] [place] [address] [place] [address] 11/29/2020 00:00:00 12/08/2020 17:44:07 [id number] [facility] [place] [address] [place] [address] 06/13/2021 00:00:00 06/13/2021 13:16:51 [id number] [facility] [place] [address] [place] [address] 2021 00:00:00 2021 10:55:35 [id number] [facility] [place] [address] [place] [address] 01/26/2022 00:00:00 01/26/2022 09:26:36 [id number] [facility] [place] [address] [place] [address] 03/13/2022 00:00:00 03/13/2022 10:37:53 [id number] [facility] [place] [address] [place] [address] 04/04/2022 00:00:00 04/04/2022 10:06:08 [id number] [facility] [place] [address] [place] [address] 04/19/2022 00:00:00 04/19/2022 08:40:59 [id number] [facility] [place] [address] [place] [address] 08/20/2022 00:00:00 08/20/2022 09:01:50 [id number] Sushant Franklin MD [facility] [place] [address] [place] [address] 09/18/2022 13:55:26 09/18/2022 15:20:04 [id number] Sergey Dooley MD [facility] [place] [address] [place] [address] 09/25/2022 11:03:40 09/25/2022 11:47:56 Chronic sinusitis 42699705 J32.9 [id number] Sushant Franklin MD [facility] [place] [address] [place] [address] 10/01/2022 14:41:46 10/01/2022 15:11:35 [id number] Sergey Dooley MD [facility] [place] [address] [place] [address] 11/15/2022 14:06:00 11/15/2022 15:00:39 Chronic sinusitis 69166078 J32.9 Chronic ma xillary sinusitis 75883334 J32.0 Chronic sp henoidal sinusitis 97884853 J32.3 Chronic et hmoidal sinusitis 11118194 J32.2 [id number] EDGAR Duron [facility] [place] [facility] [place] [address] [place] [address] 12/07/2022 10:18:41 12/07/2022 10:37:25 [id number] Sergey Dooley MD [facility] [place] [address] [place] [address] 01/09/2023 10:39:50 01/09/2023 11:12:40 Chronic sinusitis 11849255 J32.9 [id number] Sushant Franklin MD [facility] [place] [address] [place] [address] 04/18/2023 09:48:28 04/18/2023 11:40:48 Cervical spondylosis 295422786 M47.812 f/u in 6 weeks if no improvemen t or sooner if neededmay need MRI for further evaluation Jemma [id number] L71.9 [id number] Sushant Franklin MD [facility] [place] [address] [facility] [address] [place] [address] 07/11/2023 11:49:06 07/11/2023 12:25:34 Cervical spondylosis 575306896 M47.812 no improvemen t with PT and prescripti on anti-infla mmatoriesM RI ordered Pain of ri ght shoulder joint [id number] 0771982 M25.511 no improvemen t with PT and prescripti on anti-infla mmatoriesM RI ordered Screening for malignant neoplasm of colon 490548651 Z12.11 Anxiety 49013589 F41.9 restart escitalopr am 10 mg daily with foodReview ed potential med s/e, d/c and be seen if any si/hif/u in 3 months or sooner if needed [id number] Sushant Franklin MD [facility] [place] [address] [place] [address] [address] [facility] [place] [address] 08/27/2023 12:36:10 08/27/2023 12:54:08 [id number] Sushant Franklin MD [facility] [place] [address] [place] [address] [address] [facility] [place] [address] 09/03/2023 10:17:01 09/12/2023 16:18:26 [id number] [facility] [place] [address] [place] [address] [place] [address] 10/16/2023 07:59:52 10/16/2023 08:48:43 Flank pain 584614039 R10.9 check labs, urine and CT abd/pelvis stay hydratedni trofuranto in 100 mg po bid x 7 days reviewed s/s that warrant urgent/chase rgent eval in meantime Fatigue 48444646 R53.83 L65.9 [id number] Candice Mars [facility] [place] [address] [facility] [address] [place] [address] 11/21/2023 14:28:54 11/21/2023 14:44:38 [id number] Rashaad Donnelly MD [facility] [address] [facility] [address] [place] [address] 12/27/2023 14:34:00 12/27/2023 15:40:34 Kidney stone 88583316 N20.0 Overactive urinary bladder 602107815 N32.81 Atrophic vaginitis 42233 000 N95.2 Recurrent urinary tract infection 584013014 N39.0 [id number] Emi Quintero APRN [facility] [address] [facility] [place] [address] 03/30/2024 08:57:53 03/30/2024 09:36:33 Renewal of prescription 983126023 Z76.0 Cervical spondylosis 387 501207 M47.812 Atrophic vaginitis 20021 000 N95.2 Rosacea 920352952 L71.9 Overactive urinary bladder 871396181 N32.81 Hypothyroidism 88465012 E03.9 Anxiety disorder 2561686 06 F41.9 Chronic sinusitis 796633 00 J32.9 Pain in le ft sacroiliac joint 6794387872 9630129 M53.3 Health Concerns Section Related Observation LastModified by Organization Detai ls LastModified Time None Recorded Concern Status LastModified by Organization Details LastModified Time None Recorded Advance Directives Directive None Recorded Payers Encounter Date Sequence Insurance Name Policy Number Policy Arevalo Covered Member ID Arevalo Member ID Guarantor Name 09/03/2023 1 [facility] [id number] Shena Fierro [id number] Shena Fierro 10/16/2023 1 [facility] [id number] Shena Fierro [id number] Shena Fierro 11/21/2023 1 [facility] [id number] Shena Fierro [id number] Shena Fierro 12/27/2023 1 [facility] [id number] Shena Fieror [id number] Shena Fierro 03/30/2024 1 [facility] [id number] Shena Fierro [id number] Shena Fierro Notes Date Note Type Note Provider Name and Address Organization Details Recorded Time 10/16/2023 text/html has been having left flank pain off and on for 3-4 weeks. No injury and has decreased her activity because she doesn't feel well. No hematuria. Heating pad last night helped. +urinary frequency. She generally drinks water and doesn't drink much caffeine. She has been to and has taken some home tests for UTI multiple times since July and thinks she has had several infections. Chiropractor has been working on it and initially thought it was SI joint. She has had increased sweating with activity, hair is falling out. She has been having night sweats. Sushant Franklin MD [address], [place], [address], [employer] 10/16/2023 08:21:32 12/27/2023 text/html this patient cam e in with a diagnosis of recurrent UTIs but also there was something on her chart since she had a kidney stone. She had a CT scan done on October 16, 2023 and there was no mention of any stones in the kidneys in fact he said both kidneys were completely normal She says she has been having recurrent urinary tract infections for years. She also says she has frequency to void and this has been going on for 23 years. She drinks a lot of water. She drinks occasional soda. She does not get up at nighttime She does not wear pads she does not wear any type of protection and she does not have stress incontinence or urge incontinence She thinks she can hold her urine for 3-4 hours without any difficulty. She has what sounds to be overactive bladder symptoms for her she gets pressure in the suprapubic area and the lower back and she says when she has a UTI she does not have burning or malodor so I am not sure if it has a UTI but she gets an antibiotic When she has done the home huga-gfr-ssfxvrs urine test it come back occasionally showing nitrite positive but she has no symptoms She denies any gross hematuria or any fever or chills Rashaad Donnelly MD [address], [place], [address], [facility] 12/27/2023 18:24:10 03/30/2024 text/html Shena presents today for routine checkup and medication refills. She is getting ready to go on vacation and wishes to have her inhaler and allergy medication sent to local pharmacy. She states that she has left SA joint pain and has been to the chiropractor and message therapists but has not had relief. She would like to see ortho. Emi Quintero, PERSONAL LINES ADVISOR [address] [facility] [facility] [address], [place], [address], [facility] 03/30/2024 09:36:05 OBGyn Episode No OBEpisode recorded.
--- OUTSIDE RECORDS SUMMARY | 2024-10-05 17:04 | XMS_ITS | Encounter Summary ---
Author Organization [facility] Address [address] [place] [address] Care Team Providers Care Field Installation Technician Name Role Phone Sarkis Dolan MD Primary Care Provider [phone] Encounter Details Date Type Department Care Team (Latest Contact Info) Description 03/10/2001 Outpatient Historical HIS [facility] Sarkis Mata Unspecified essential hypertension (Primary Dx) Social History Tobacco Use Types Packs/Day Years Used Date Smoking Tobacco: Never Assessed Comments Unknown Sex and Gender Information Value Date Recorded Sex Assigned at Not on file Legal Sex Female 4:29 AM SLOT MANAGER Gender Identity Not on file Sexual Orientation Not on file documented as of this encounter Plan of Treatment Not on file documented as of this encounter Visit Diagnoses Diagnosis Unspecified essential hypertension- Primary documented in this encounter Care Teams Field Installation Technician Relationship Specialty Start Date End Date Sarkis Dolan MD [address] [place] [address] PCP - General 10/31/00 documented as of this encounter
--- OUTSIDE RECORDS SUMMARY | 2024-10-05 17:04 | XMS_ITS | Encounter Summary ---
Author Organization [facility] Address [address] [place] [address] Care Team Providers Care City Solicitor Name Role Phone Sarkis Dolan MD Primary Care Provider [phone] Encounter Details Date Type Department Care Team (Late st Contact Info) Description 02/18/2001 Outpatient Historical HIS [facility] Brian Akers MD [id number] [place] [address] Social History Tobacco Use Types Packs/Day Years Used Date Smoking Tobacco: Never Assessed Comments Unknown Sex and Gender Information Value Date Recorded Sex Assigned at Not on file Legal Sex Female 4:29 AM TELEVISION PICTURE TUBE REBUILDER Gender Identity Not on file Sexual Orientation Not on file documented as of this encounter Plan of Treatment Not on file documented as of this encounter Visit Diagnoses Not on filedocumented in this encounter Care Teams City Solicitor Relationship Specialty Start Date End Date Sarkis Dolan MD [address], [place] [address] PCP - General 10/31/00 documented as of this encounter
--- OUTSIDE RECORDS SUMMARY | 2024-10-05 17:04 | XMS_ITS | Encounter Summary ---
Author Organization [facility] Address [address] [place] [address] Care Team Providers Care Bander And Cellophaner Machine Name Role Phone Sarkis Dolan MD Primary Care Provider Encounter Details Date Type Department Care Team (Late st Contact Info) Description 10/22/2000 Outpatient Historical HIS [facility] So Garcia Social History Tobacco Use Types Packs/Day Years Used Date Smoking Tobacco: Never Assessed Comments Unknown Sex and Gender Information Value Date Recorded Sex Assigned at Not on file Legal Sex Female 4:29 AM SPINDLE PLUMBER Gender Identity Not on file Sexual Orientation Not on file documented as of this encounter Plan of Treatment Not on file documented as of this encounter Visit Diagnoses Not on filedocumented in this encounter Care Teams Bander And Cellophaner Machine Relationship Specialty Start Date End Date Sarkis Dolan MD [address] [place] [address] PCP - General 10/31/00 documented as of this encounter
--- OUTSIDE RECORDS SUMMARY | 2024-10-05 17:04 | XMS_ITS | Encounter Summary ---
Author Organization [employer] Address [address] [place] [address] Care Team Providers Care Supervisor Looping Name Role Phone Sarkis Dolan MD Primary Care Provider [phone] Encounter Details Date Type Department Care Team (Latest Contact Info) Description 02/01/2001 Outpatient Historical HIS [facility] Chuck Pemberton MD [address] [place] [address] Congenital renal agenesis and dysgenesis (Primary Dx) Social History Tobacco Use Types Packs/Day Years Used Date Smoking Tobacco: Never Assessed Comments Unknown Sex and Gender Information Value Date Recorded Sex Assigned at Not on file Legal Sex Female 4:29 AM HEAD WAITER/WAITRESS BANQUET Gender Identity Not on file Sexual Orientation Not on file documented as of this encounter Plan of Treatment Not on file documented as of this encounter Visit Diagnoses Diagnosis Congenital renal agenesis and dysgenesis- Primary documented in this encounter Care Teams Supervisor Looping Relationship Specialty Start Date End Date Sarkis Dolan MD [address] [place] [address] PCP - General 10/31/00 documented as of this encounter
--- OUTSIDE RECORDS SUMMARY | 2024-10-05 17:04 | XMS_ITS | Encounter Summary ---
Author Organization [facility] Address [address] [place] [address] Care Team Providers Care Machine Bookkeeper Name Role Phone Sarkis Dolan MD Primary Care Provider [phone] Encounter Details Date Type Department Care Team (Latest Contact Info) Description 03/18/2001 Outpatient Historical HIS [facility] Brian Akers MD [address] [place] [address] Follow-up examination following surgery (Primary Dx) Social History Tobacco Use Types Packs/Day Years Used Date Smoking Tobacco: Never Assessed Comments Unknown Sex and Gender Information Value Date Recorded Sex Assigned at Not on file Legal Sex Female 4:29 AM COFFEE SHOP AIDE Gender Identity Not on file Sexual Orientation Not on file documented as of this encounter Plan of Treatment Not on file documented as of this encounter Visit Diagnoses Diagnosis Follow-up examination following surgery- Primary documented in this encounter Care Teams Machine Bookkeeper Relationship Specialty Start Date End Date Sarkis Dolan MD [address] [place] [address] PCP - General 10/31/00 documented as of this encounter
--- OUTSIDE RECORDS SUMMARY | 2024-10-05 17:04 | XMS_ITS | Encounter Summary ---
Author Organization [facility] Address [address] [place] [address] Care Team Providers Care Outside Salesman Name Role Phone Sarkis Dolan MD Primary Care Provider [phone] Encounter Details Date Type Department Care Team (Late st Contact Info) Description 01/16/2001 Outpatient Historical HIS [facility] Luisito Alvarez MD [address] [place] [address] Social History Tobacco Use Types Packs/Day Years Used Date Smoking Tobacco: Never Assessed Comments Unknown Sex and Gender Information Value Date Recorded Sex Assigned at Not on file Legal Sex Female 4:29 AM RISK MANAGEMENT CONSULTANT Gender Identity Not on file Sexual Orientation Not on file documented as of this encounter Plan of Treatment Not on file documented as of this encounter Visit Diagnoses Not on filedocumented in this encounter Care Teams Outside Salesman Relationship Specialty Start Date End Date Sarkis Dolan MD [address] [place] [address] PCP - General 10/31/00 documented as of this encounter
--- OUTSIDE RECORDS SUMMARY | 2024-10-05 17:04 | XMS_ITS | Encounter Summary ---
Author Organization [employer] Address [address] [place] [address] Care Team Providers Care Salesforce Trainer Name Role Phone Sarkis Dolan MD Primary Care Provider [phone] Encounter Details Date Type Department Care Team (Latest Contact Info) Description 03/27/2001 Outpatient Historical HIS [facility] Luisito Alvarez MD [address] [place] [address] Atherosclerosis of renal artery (Primary Dx) Social History Tobacco Use Types Packs/Day Years Used Date Smoking Tobacco: Never Assessed Comments Unknown Sex and Gender Information Value Date Recorded Sex Assigned at Not on file Legal Sex Female 4:29 AM RESIDENT CARE COORDINATOR Gender Identity Not on file Sexual Orientation Not on file documented as of this encounter Plan of Treatment Not on file documented as of this encounter Visit Diagnoses Diagnosis Atherosclerosis of renal artery- Primary documented in this encounter Care Teams Salesforce Trainer Relationship Specialty Start Date End Date Sarkis Dolan MD [address] [place] [address] PCP - General 10/31/00 documented as of this encounter
--- OUTSIDE RECORDS SUMMARY | 2024-10-05 17:04 | XMS_ITS | Encounter Summary ---
Author Organization [employer] Address [address] [place] [address] Care Team Providers Care Leak Hunter Name Role Phone Sarkis Dolan MD Primary Care Provider [phone] Encounter Details Date Type Department Care Team (Late st Contact Info) Description 03/20/2001 [facility] [address] [place] [address] Other follow-up examination(V67.59) (Primary Dx) Social History Tobacco Use Types Packs/Day Years Used Date Smoking Tobacco: Never Assessed Comments Unknown Sex and Gender Information Value Date Recorded Sex Assigned at Not on file Legal Sex Female 4:29 AM TIE MILL OPERATOR Gender Identity Not on file Sexual Orientation Not on file documented as of this encounter Plan of Treatment Not on file documented as of this encounter Visit Diagnoses Diagnosis Other follow-up examination(V67.59)- Primary Other follow-up examination documented in this encounter Care Teams Leak Hunter Relationship Specialty Start Date End Date aSrkis Dolan MD [address] [place] [address] PCP - General 10/31/00 documented as of this encounter
--- OUTSIDE RECORDS SUMMARY | 2024-10-05 17:04 | XMS_ITS | Patient Health Record ---
Author Organization [facility] Address [address] [place] [address] Care Team Providers Care Caramel Coloring Operator Name Role Phone BijanrocLizzie Primary Care Provider Unavailab le Pita Salvador Unavailable [phone] [employer], Provider Unavailable Unavailab le Allergies No Known Allergies Reason For Referral No Information Medications Medication SIG (Take, Route, Frequency, Duration) Notes Start Date End Date Status NASACORT uses prn Active Cetirizine HCl 10 MG 1 tab(s) orally onc e a day 09/19/2022 Active Flonase Sensimist 27.5 MCG/SPRAY as directed intranasally once a day for 30 day(s) 09/19/2022 Active FLONASE SENSIMIST 27.5 mcg/inh as directed intranasally once a day for 30 day(s) 09/19/2022 Active ALBUTEROL (EQV-PROVENTIL HFA) 90 MCG/INH 2 PUFF(S) INHALED EVERY 6 HOURS *Please review for potential replacement for e-prescription and drug interaction check* 09/19/2022 Active LEVOTHYROXINE 25 mcg (0.025 mg) 1 tab(s) orally once a day for 30 day(s) Active ARNUITY ELLIPTA furoate 100 mcg USE 1 INHALATION EVERY 24 HOURS Active CLARITIN 10 mg 1 tab(s) orally once a day uses prn Active Nasacort Allergy 24HR uses prn *Please review and pick correct strength-formulat ion from Geeklist options. If intended option is not shown, discontinue and re-order from Quick Search* Active ALBUTEROL (EQV-PROVENTIL HFA) 90 MCG/INH 2 PUFF(S) INHALED EVERY 6 HOURS uses prn *Please review for potential replacement for e-prescription and drug interaction check* Active Claritin 10 MG 1 tab(s) orally once a day uses prn Active EPINEPHRINE AUTO-INJECTOR 0.3 MG DIRECTED INTRAMUSCULARLY ONCE for 1 DAY *Please review for potential replacement for e-prescription and drug interaction check* 09/19/2022 Active Levothyroxine Sodium 25 MCG 1 tab(s) orally once a day for 30 day(s) Active CETIRIZINE HYDROCHLORIDE 10 mg 1 tab(s) orally once a day 09/19/2022 Active Arnuity Ellipta 100 MCG/ACT USE 1 INHALATION EVERY 24 HOURS Active Social History Tobacco Use: Social History Observation Description Date Details (start date - stop date) Never Smoker NA - NA Smoking Smart Form: Question Answer Notes Are you a: never smoker Problems Problem Type SNOMED Code ICD Code Onset Dates Problem Status W/U Status Risk Notes Problem Chronic allergic conjunctivitis (99589041) Other chronic allergic conjunctivitis (H10.45) Active confirmed Problem Allergic rhinitis caused by pollen (disorder) (29926358) Allergic rhinitis due to pollen (J30.1) Active confirmed Problem Allergic rhinitis (78360816) Other allergic rhinitis (J30.89) Active confirmed Problem Allergic rhinitis caused by animal hair and dander (904976421696462) Allergic rhinitis due to animal (cat) (dog) hair and dander (J30.81) Active confirmed Problem Polyp of nasal cavity (747574610) 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) Active confirmed Problem Chronic cough (74867372) Chronic cough (R05.3) Active confirmed Encounters Encounter Location Date Provider Diagnosis NEL - [address] [address] 12/28/2023 Provider SHAKEEL-Denise Allergic rhinitis due to pollen J30.1 and Chronic cough R05.3 Assessments Encounter Date Diagnosis (ICD Code) Assessment Notes Treatment Notes Treatment Clinical Notes Section Notes 12/28/2023 Allergic rhinitis due to pollen (ICD-10 - J30.1) 12/28/2023 Chronic cough (ICD-10 - R05.3) Plan Of Treatment No Information Insurance Providers Payer Name Payer Address Payer Phone Subscriber Number Group Number Insured Name Patient Relationship to Insured Coverage Start Date Coverage End Date [facility] [address] [address] [place] [phone] [id number] Shena Fierro Self - patient is the insured Medical (General) History Medical History History ICD Code Hypothyroidism Surgical History Surgery Date(Month/Year) C-sections 1984,, 1995 Major back surgery 1998 Bunionectomy 1996 Hospitalization History Reason Date(Month/Year) C-sections 1984,1987 and 1996 Back surgery 1998 Intestinal blockage 2020
--- OUTSIDE RECORDS SUMMARY | 2024-10-05 17:04 | XMS_ITS | Encounter Summary ---
Author Organization [facility] Address [address] [place] [address] Care Team Providers Care Communications Program Manager Name Role Phone Sarkis Dolan MD Primary Care Provider [phone] Encounter Details Date Type Department Care Team (Late st Contact Info) Description 10/30/2000 Outpatient Historical HIS [facility] Sarkis Dolan MD [address] [place] [address] Social History Tobacco Use Types Packs/Day Years Used Date Smoking Tobacco: Never Assessed Comments Unknown Sex and Gender Information Value Date Recorded Sex Assigned at Not on file Legal Sex Female 4:29 AM ETHNOLOGY PROFESSOR Gender Identity Not on file Sexual Orientation Not on file documented as of this encounter Plan of Treatment Not on file documented as of this encounter Visit Diagnoses Not on filedocumented in this encounter Care Teams Communications Program Manager Relationship Specialty Start Date End Date Sarkis Dolan MD [address] [place] [address] PCP - General 10/31/00 documented as of this encounter
--- OUTSIDE RECORDS SUMMARY | 2024-10-05 17:04 | XMS_ITS | Encounter Summary ---
Author Organization [facility] Address [address] [place] [address] Care Team Providers Care Manager Of Organizational Development Name Role Phone Sarkis Dolan MD Primary Care Provider [phone] Encounter Details Date Type Department Care Team (Late st Contact Info) Description 03/27/2001 Outpatient Historical HIS [facility] Luisito Alvarez MD [address] [place] [address] Social History Tobacco Use Types Packs/Day Years Used Date Smoking Tobacco: Never Assessed Comments Unknown Sex and Gender Information Value Date Recorded Sex Assigned at Not on file Legal Sex Female 4:29 AM OYSTER CULTURIST Gender Identity Not on file Sexual Orientation Not on file documented as of this encounter Plan of Treatment Not on file documented as of this encounter Visit Diagnoses Not on filedocumented in this encounter Care Teams Manager Of Organizational Development Relationship Specialty Start Date End Date Sarkis Dolan MD [address] [place] [address] PCP - General 10/31/00 documented as of this encounter
--- OUTSIDE RECORDS SUMMARY | 2024-10-05 17:04 | XMS_ITS | Encounter Summary ---
Author Organization [employer] Address [address] [place] [address] Care Team Providers Care Slot Floorperson Name Role Phone Sarkis Dolan MD Primary Care Provider Encounter Details Date Type Department Care Team (Latest Contact Info) Description 10/30/2000 Outpatient Historical [facility] [address] Irregular menstrual cycle (Primary Dx) Social History Tobacco Use Types Packs/Day Years Used Date Smoking Tobacco: Never Assessed Comments Unknown Sex and Gender Information Value Date Recorded Sex Assigned at Not on file Legal Sex Female 4:29 AM INSPECTOR MULTIFOCAL LENS Gender Identity Not on file Sexual Orientation Not on file documented as of this encounter Plan of Treatment Not on file documented as of this encounter Visit Diagnoses Diagnosis Irregular menstrual cycle- Primary documented in this encounter Care Teams Slot Floorperson Relationship Specialty Start Date End Date Sarkis Dolan MD [address] [place] [address] PCP - General 10/31/00 documented as of this encounter
--- OUTSIDE RECORDS SUMMARY | 2024-10-05 17:04 | XMS_ITS | Encounter Summary ---
Author Organization [facility] Address [address] [place] [address] Care Team Providers Care Glaze Wiper Name Role Phone Sarkis Dolan MD Primary Care Provider [phone] Encounter Details Date Type Department Care Team (Late st Contact Info) Description 03/27/2001 Outpatient Historical HIS [facility] Luisito Alvarez MD [address] [place] [address] Social History Tobacco Use Types Packs/Day Years Used Date Smoking Tobacco: Never Assessed Comments Unknown Sex and Gender Information Value Date Recorded Sex Assigned at Not on file Legal Sex Female 4:29 AM LENDING MANAGER Gender Identity Not on file Sexual Orientation Not on file documented as of this encounter Plan of Treatment Not on file documented as of this encounter Visit Diagnoses Not on filedocumented in this encounter Care Teams Glaze Wiper Relationship Specialty Start Date End Date Sarkis Dolan MD [address] [place] [address] PCP - General 10/31/00 documented as of this encounter
--- OUTSIDE RECORDS SUMMARY | 2024-10-05 17:04 | XMS_ITS | Encounter Summary ---
Author Organization [facility] Address [address] [place] [address] Care Team Providers Care Senior Information Security Consultant Name Role Phone Sarkis Dolan MD Primary Care Provider [phone] Encounter Details Date Type Department Care Team (Late st Contact Info) Description 12/24/2000 Outpatient Historical HIS [facility] Brian Akers MD [id number] [place] [address] Social History Tobacco Use Types Packs/Day Years Used Date Smoking Tobacco: Never Assessed Comments Unknown Sex and Gender Information Value Date Recorded Sex Assigned at Not on file Legal Sex Female 4:29 AM PERMANENT WAVER Gender Identity Not on file Sexual Orientation Not on file documented as of this encounter Plan of Treatment Not on file documented as of this encounter Visit Diagnoses Not on filedocumented in this encounter Care Teams Senior Information Security Consultant Relationship Specialty Start Date End Date Sarkis Dolan MD [address] [place], [place] [id number] PCP - General 10/31/00 documented as of this encounter
--- OUTSIDE RECORDS SUMMARY | 2024-10-05 17:04 | XMS_ITS | Encounter Summary ---
Author Organization [facility] Address [address] [place] [address] Care Team Providers Care Chemical Worker Name Role Phone Sarkis Dolan MD Primary Care Provider [phone] Encounter Details Date Type Department Care Team (Latest Contact Info) Description 02/18/2001 Outpatient Historical HIS [facility] Brian Akers MD [id number] [place] [address] Dysuria (Primary Dx) Social History Tobacco Use Types Packs/Day Years Used Date Smoking Tobacco: Never Assessed Comments Unknown Sex and Gender Information Value Date Recorded Sex Assigned at Not on file Legal Sex Female 4:29 AM ALUMNAE SECRETARY Gender Identity Not on file Sexual Orientation Not on file documented as of this encounter Plan of Treatment Not on file documented as of this encounter Visit Diagnoses Diagnosis Dysuria- Primary documented in this encounter Care Teams Chemical Worker Relationship Specialty Start Date End Date Sarkis Dolan MD [address] [place], [place] [id number] PCP - General 10/31/00 documented as of this encounter
--- OUTSIDE RECORDS SUMMARY | 2024-10-05 17:04 | XMS_ITS | Encounter Summary ---
Author Organization [employer] Address [address] [place] [address] Care Team Providers Care Case Specialist Name Role Phone Sarkis Dolan MD Primary Care Provider [phone] Encounter Details Date Type Department Care Team (Latest Contact Info) Description 02/05/2001 Inpatient Historical HIS [facility] Brian Akers MD [address] [place] [address] Leiomyoma of uterus, unspecified (Primary Dx) Social History Tobacco Use Types Packs/Day Years Used Date Smoking Tobacco: Never Assessed Comments Unknown Sex and Gender Information Value Date Recorded Sex Assigned at Not on file Legal Sex Female 4:29 AM DATA MANAGEMENT SPECIALIST Gender Identity Not on file Sexual Orientation Not on file documented as of this encounter Plan of Treatment Not on file documented as of this encounter Visit Diagnoses Diagnosis Leiomyoma of uterus, unspecified- Primary documented in this encounter Care Teams Case Specialist Relationship Specialty Start Date End Date Sarkis Dolan MD [address] [place] [address] PCP - General 10/31/00 documented as of this encounter
--- OUTSIDE RECORDS SUMMARY | 2024-10-05 17:04 | XMS_ITS | Encounter Summary ---
Author Organization [facility] Address [address] [place] [address] Care Team Providers Care Consumer Lending Manager Name Role Phone Sarkis Dolan MD Primary Care Provider [phone] Encounter Details Date Type Department Care Team (Latest Contact Info) Description 10/31/2000 Outpatient Historical HIS [facility] Sarkis Lopez MD [address] [place] [address] Cough (Primary Dx) Social History Tobacco Use Types Packs/Day Years Used Date Smoking Tobacco: Never Assessed Comments Unknown Sex and Gender Information Value Date Recorded Sex Assigned at Not on file Legal Sex Female 4:29 AM CATERING COOK Gender Identity Not on file Sexual Orientation Not on file documented as of this encounter Plan of Treatment Not on file documented as of this encounter Visit Diagnoses Diagnosis Cough- Primary documented in this encounter Care Teams Consumer Lending Manager Relationship Specialty Start Date End Date Sarkis Dolan MD [address] [place] [address] PCP - General 10/31/00 documented as of this encounter
--- OUTSIDE RECORDS SUMMARY | 2024-10-05 17:04 | XMS_ITS | Clinical Summary ---
Author Organization [facility] Address [address] [place] [address] Care Team Providers Care Artistic Director Name Role Phone Lizzie Frnaklin MD Primary Care Provider Source Comments [facility],non-owned Affiliates and Associated Physician Practices is amultiple site organization consisting of ambulatory clinics and hospital sitesin [place], [place], [place] and [place]. This disclosure is being madepursuant to the Care Everywhere program and may not contain all information available regarding this patient. Last updated 18.[facility] Social History Tobacco Use Types Packs/Day Years Used Date Smoking Tobacco: Never Assessed Sex and Gender Information Value Date Recorded Sex Assigned at Not on file Gender Identity Not on file Sexual Orientation Not on file Plan of Treatment Health Maintenance Due Date Last Done Comments COLOGUARD (AGES 45-75) - COL ON CA SCREENING 1961 COLON MONITORING 1961 COLONOSCOPY - COLON CA SCREENING 1961 CT COLONOGRAPHY - COLON CA SCREENING 1961 Colorectal Cancer Screening 1961 FIT - COLON CA SCREENING 1961 FLEX SIG - COLON CA SCREENING 1961 LIPID TESTING 1961 MAMMOGRAM 1961 PAP SMEAR 1961 HIV SCREENING 1976 HEPATITIS C SCREENING 09/16/1979 DTAP/TDAP/TD VACCINES (1 - Tdap) 1980 PNEUMOCOCCAL VACCINE 50+ (1 of 1 - PCV) 09/21/2011 ZOSTER VACCINE (1 of 2) 09/21/2011 COVID-19 VACCINE ( - 2023-2 5 season) 2024 INFLUENZA VACCINE (#1) 2024 DEPRESSION SCREENING 07/15/2024 MEDICARE AWV CALENDAR YEAR 2024 Respiratory Syncytial Virus (RSV) Vaccine Pt: or over 60 yrs (1 - 1-dose 75+ series) 2036 HEPATITIS B VACCINE Aged Out No longe r eligible based on patient's age to complete this topic HIB VACCINE Aged Out No longer eligi ble based on patient's age to complete this topic HPV VACCINE Aged Out No longer eligi ble based on patient's age to complete this topic MENINGOCOCCAL (Group B) VACC INE SHARED DECISION-MAKING Aged Out No longer eligibl e based on patient's age to complete this topic MENINGOCOCCAL GROUPS A/C/Y/W VACCINE Aged Out No longer eligible b ased on patient's age to complete this topic PNEUMOCOCCAL VACCINE Aged Out No long er eligible based on patient's age to complete this topic Care Teams Artistic Director Relationship Specialty Start Date End Date Lizzie Franklin MD [address] [place] [address] PCP - General 05/08/22
--- OUTSIDE RECORDS SUMMARY | 2024-10-05 17:04 | XMS_ITS | Encounter Summary ---
Author Organization [employer] Address 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
== END 2024-10-05 14:45 | disposition home or self-care (01) ==
LOC: ANHIMG 14:45
PROVIDERS: PCP Internal Medicine; Visit Provider Obstetrics & Gynecology
DX: Z12.31 Encounter for screening mammogram for malignant neoplasm of breast (principal)
CPT/HCPCS: 77063; 77067

== ENCOUNTER 2024-11-18 12:46 | Outpatient (CLI) | payer OTHER, SELFPAY ==
--- NOTE | ~2024-11-18 | MR_ITS ---
MRI of the left knee Clinical history: Pain Technique: Coronal proton density and proton density-weighted images, sagittal proton-density and T2 fat-sat images, and axial proton-density fat-saturated images were acquired. Findings: Anterior and posterior cruciate ligaments are intact. Medial collateral ligament and the la teral collateral ligament complex are intact. Popliteus tendon is intact. Medial and lateral menisci are intact, without evidence of tear. There is extensive high-grade chondromalacia the patellar apex and lateral facet with areas of subcho ndral cystic change. Focal low to moderate chondral fissures are present at the femoral trochlea. The re is mild chondromalacia the central aspect of the lateral femoral condyle. There is minimal chondro malacia the central aspect of the medial femoral condyle. Extensor mechanism is intact. No joint effusion or Bloom's cyst. Impression: Advanced chondromalacia patella, as detailed above. Additional areas of mild chondromalacia of the femoral trochlea and medial and lateral femoral condyl es. No ligamentous injury or meniscal tear. Reviewed, dictated and finalized at location . Impression: Advanced chondromalacia patella, as detailed above. Additional areas of mild chondromalacia of the femoral trochlea and medial and lateral femoral condyles. No ligamentous injury or meniscal tear.
--- OUTSIDE RECORDS SUMMARY | 2024-11-18 13:00 | XMS_ITS | Encounter Summary ---
Author Organization [facility] Address [address] [place] [address] Care Team Providers Care Gang Miner Name Role Phone Sarkis Dolan MD Primary Care Provider [phone] Encounter Details Date Type Department Care Team (Late st Contact Info) Description 12/16/2000 Outpatient Historical [facility] [address] [facility] 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
--- OUTSIDE RECORDS SUMMARY | 2024-11-18 13:01 | XMS_ITS | Encounter Summary ---
Author Organization [facility] Address 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
--- OUTSIDE RECORDS SUMMARY | 2024-11-18 13:01 | XMS_ITS | Data Portability ---
Author Organization [place] [facility] [place], Main Office Address [address] [place] [address] Care Team Providers Care Slate Handler Name Role Phone SHERRELL IROS Primary Care Provider [phone] SHERRELL RIOS Referring Provider Assessment Encounter Date Assessment Date Assessment LastModified by Organization Details LastModified Time 10/26/2024 10/26/2024 64-year-old female presents for evaluation of her right knee. She reports pain that has been going on for a couple of years, getting progressively worse. She is an avid hiker, and it bothers her when she is hiking. She has pain, swelling, and catching and locking up. She has been taking some ibuprofen. She has also done a home exercise program from her chiropractor. They have not given her significant improvement. 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 She currently rates her pain as 3/10. Review of systems per patient questionnaire Physical exam: She has nonantalgic gait. Tenderness palpation of the medial and lateral joint line. Range of motion 0-130. Pain in terminal flexion. Positive Kiki's. Stable ligaments. X-rays were reviewed, demonstrating mild degenerative changes with joint space narrowing and sclerosis particularly of the patellofemoral compartment For her knee pain, she has failed a course of conservative management with a directed home exercise program and anti-inflammatori es. We will send her for MRI and see her back after those results. We will also give her our own home exercise program. We will also give her order for meloxicam. She is in agreement with the plan. [email or web address] Not available 10/26/2024 10:43:57 Plan of Treatment Reminders Order Date Submit Date Provider Last Modified By Organization Details Last Modified Time Details Appointments Any 15 2024 09:45A M Sherrell odonnell MD Not available Not available Not available Lab lipid panel, serum 2024 025 [facility] (Lab), [address] [place], [address], 10/22/2024 07:58:03 CBC w/ auto diff 2024 025 [facility] (Lab), [address] [facility] [place], [address], 10/22/2024 07:58:05 TSH, serum or plasma 2024 025 [facility] (Lab), [address] [facility] [place], [address], 10/22/2024 07:58:08 CMP, serum or plasma 2024 025 [facility] (Lab), [address] [facility] [place], [address], 10/22/2024 07:58:04 HbA1c (hemoglob in A1c), blood 2024 025 DYLAN [facility], [address], [place], [address], 10/22/2024 02:37:40 microalbu min, urine 2024 025 DYLAN [facility], [address], [place], [address], 10/22/2024 02:37:39 vitamin D, 25-hydrox y, total, serum 2024 025 [facility] (Lab), [address] [facility] [place], [address], 10/22/2024 07:58:07 urinalysi s, dipstick 2023 024 [email or web address] [facility], [address], [place], [address], 12/27/2023 17:12:56 Referral orthopedi c surgeon referral - Please call patient to schedule an appointme nt. Thank you. 2024 025 DYLAN [facility], [address] [facility], [place], [address], 10/26/2024 12:26:31 orthopedi c surgeon referral - Please call patient to schedule. 2023 024 [facility], [address] [facility], [place], [address], 08/03/2024 16:34:59 Procedures None recorded. Surgeries None recorded. Imaging XR, knee, 3 view 2024 025 [email or web address] [facility], [facility] [facility], [place], [address], 10/27/2024 08:43:16 MRI, knee, w/o contrast - Please provide pt with disc of images to bring to follow up apt. Thanks 2024 025 [email or web address] [facility], [address], [place], [address], 10/28/2024 11:41:36 MAMMO, screening , digital, bilateral - Please call patient to schedule. 2024 025 [facility], [address], [place], [address], 10/14/2024 11:45:28 DEXA, axial skeleton - Please call patient to schedule. 2024 025 [facility], [address], [place], [address], 10/14/2024 11:45:28 Medication Orders meloxicam 15 mg tablet 2024 025 [email or web address] [facility] #95617, [address], [place], [place], [id number], 10/26/2024 21:46:25 Estrace 2 mg tablet [address] [facility] #48029, [address], [place], [place], [id number], 10/14/2024 11:01:09 metronida zole 0.75 % topical gel [address] [facility] #16319, [address] , [place], [place], [id number], 10/14/2024 11:01:25 escitalop mitesh 10 mg tablet [address] [facility]41653, [address] , [place], [place], [id number], 10/26/2024 10:01:13 albuterol sulfate HFA 90 mcg/actua tion aerosol inhaler [address] [facility]17107, [address] , [place], [place], [id number], 10/26/2024 10:01:08 cyclobenz aprine 5 mg tablet [address] [facility] #88460, [address] , [place], [place], [id number], 10/14/2024 11:00:44 diclofena c sodium 75 mg tablet,de layed release [address] [facility] #22017, [address], [place], [place], [id number], 10/14/2024 11:00:53 oxybutyni n chloride ER 10 mg tablet,ex tended release [address] [facility] #90368, [address], [place], [place], [id number], 10/14/2024 11:01:33 Synthroid 88 mcg tablet 2023 024 [email or web address] [facility] #34334, [address], [place], [place], [id number], 10/26/2024 10:01:22 Claritin 10 mg tablet [address] [facility] #16999, [address], [id number], 10/14/2024 11:00:37 Estrace 2 mg tablet [address] [facility] #92440, [address], [place], [place], [id number], 10/14/2024 11:01:09 Macrodant in 100 mg capsule 2023 024 [email or web address] [facility] #17325, [address], [place], [place], [id number], 03/18/2024 10:29:50 oxybutyni n chloride ER 10 mg tablet,ex tended release [address] [facility] #37152, [address], [place], [place], [id number], 10/14/2024 11:01:33 Patient TargetsNo targets recorded. Patient Instructions Encounter Date Encounter Id Patient Instructions Last Modified By Organization Details Last Modified Time 12/27/2023 [id number] plan 1. If she starts having symptoms [...] days [email or web address] Not available 12/27/2023 18:23:31 03/30/2024 [id number] Follow up with provider Prescriptions sent to pharmacy Orthopedic referral for left SA joint pain. [email or web address] Not available 03/30/2024 09:33:35 Reason for Referral Orthopedic Surgeon Referral for Pain in left sacroiliac joint Please call patient to schedule. Referring Physician: Emi Quintero, Internal Medicine, Encounter Date: 03/30/2024 Orthopedic Surgeon Referral for Pain of left knee joint Please call patient to schedule an appointment. Thank you. Referring Physician: Sherrell Rios, Internal Medicine, Encounter Date: 10/14/2024 Results Created Date Observation Date Name Description Value Unit Range Abnormal Flag Note LastModifiedBy Organization Detail LastModifiedTime 11/21/1911/23/2023 UA/M W/RFL X JARRETT FLOR specific gravity 1.009 1.005- 1.030 Not Available [facility] ([facility]) [address] [place], [address], 11/23/2023 06:18:42 11/21/1911/23/2023 UA/M W/RFL X JARRETT FLOR pH 5.0 5.0-7. 5 Not Available [facility] ([facility]) [address] [facility], [place], [address], 11/23/2023 06:18:42 11/21/19 24 11/23/2023 UA/M W/RFL X CULTU RE, ROUTI NE urine-color YELLOW yellow Not Available [facility] ([facility]) [address] [place], [address], 11/23/2023 06:18:42 11/21/19 24 11/23/2023 UA/M W/RFL X CULTU RE, ROUTI NE appearance CLEAR clear Not Available [facility] ([facility]) [address] [place], [address], 11/23/2023 06:18:42 11/21/19 24 11/23/2023 UA/M W/RFL X CULTU RE, ROUTI NE WBC esterase NEGATI VE negati ve Not Available [facility] ([facility]) [address] [place], [address], 11/23/2023 06:18:42 11/21/19 24 11/23/2023 UA/M W/RFL X CULTU RE, ROUTI NE protein NEGATI VE negati ve/tra ce Not Available [facility] ([facility]) [address] [place], [address], 11/23/2023 06:18:42 11/21/19 24 11/23/2023 UA/M W/RFL X CULTU REJARRETT NE glucose NEGATI VE negati ve Not Available [facility] ([facility]) [address] [place], [address], 11/23/2023 06:18:42 11/21/19 24 11/23/2023 UA/M W/RFL X CULTU RE, ROUTI NE ketones NEGATI VE negati ve Not Available [facility] ([facility]) [address] [place], [address], 11/23/2023 06:18:42 11/21/19 24 11/23/2023 UA/M W/RFL X CULTU RE, ROUTI NE occult blood NEGATI VE negati ve Not Available [facility] ([facility]) [address] [facility], [place], [address], 11/23/2023 06:18:42 11/21/19 24 11/23/2023 UA/M W/RFL X CULTU RE, ROUTI NE bilirubin NEGATI VE negati ve Not Available [facility] ([facility]) [address] [facility], [place], [address], 11/23/2023 06:18:42 11/21/19 24 11/23/2023 UA/M W/RFL X CULTU RE, ROUTI NE urobilinogen ,semi-qn 0.2 mg/dL 0.2-1. 0 Not Available [facility] ([facility]) [address] [facility], [place], [address], 11/23/2023 06:18:42 11/21/19 24 11/23/2023 UA/M W/RFL X CULTU RE, ROUTI NE nitrite, urine NEGATI VE negati ve Not Available [facility] ([facility]) [address] [facility], [place], [address], 11/23/2023 06:18:42 11/21/19 24 11/23/2023 UA/M W/RFL X CULTU RE, ROUTI NE microscopic examination COMMEN T Micro scopi c follo ws if indic ated. Not Available [facility] ([facility]) [address] [facility], [place], [address], 11/23/2023 06:18:42 11/21/19 24 11/23/2023 UA/M W/RFL X CULTU RE, ROUTI NE microscopic examination SEE BELOW: Micro scopi c was indic ated and was perfo rmed. Not Available [facility] ([facility]) [address] [facility], [place], [address], 11/23/2023 06:18:42 11/21/19 24 11/23/2023 UA/M W/RFL X CULTU RE, ROUTI NE WBC NONE SEEN /hpf 0 - 5 Not Available [facility] ([facility]) [address] [facility], [place], [address], 11/23/2023 06:18:42 11/21/19 24 11/23/2023 UA/M W/RFL X CULTU RE, ROUTI NE RBC 0-2 /hpf 0 - 2 Not Available [facility] ([facility]) [address] [facility], [place], [address], 11/23/2023 06:18:42 11/21/19 24 11/23/2023 UA/M W/RFL X CULTU RE, ROUTI NE epithelial cells (non renal) NONE SEEN /hpf 0 - 10 Not Available [facility] ([facility]) [address] [facility], [place], [address], 11/23/2023 06:18:42 11/21/19 24 11/23/2023 UA/M W/RFL X CULTU RE, ROUTI NE epithelial cells (renal) 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 Not Available [facility] ([facility]) [address] [facility], [place], [address], 11/23/2023 06:18:42 11/21/19 24 11/23/2023 UA/M W/RFL X CULTU RE, ROUTI NE casts NONE SEEN /lpf none seen Not Available [facility] ([facility]) [address] [facility], [place], [address], 11/23/2023 06:18:42 11/21/19 24 11/23/2023 UA/M W/RFL X CULTU RE, ROUTI NE cast type 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 Not Available [facility] ([facility]) [address] [facility], [place], [address], 11/23/2023 06:18:42 11/21/19 24 11/23/2023 UA/M W/RFL X CULTU RE, ROUTI NE crystals [employer] 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 Not Available [facility] ([facility]) [address] [facility], [place], [address], 11/23/2023 06:18:42 11/21/19 24 11/23/2023 UA/M W/RFL X CULTU RE, ROUTI NE crystal type [employer] 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 Not Available [facility] ([facility]) [address] [facility], [place], [address], 11/23/2023 06:18:42 11/21/19 24 11/23/2023 UA/M W/RFL X CULTU RE, ROUTI NE mucus threads [employer] 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 Not Available [facility] ([facility]) [address] [facility], [place], [address], 11/23/2023 06:18:42 11/21/19 24 11/23/2023 UA/M W/RFL X CULTU RE, ROUTI NE bacteria NONE SEEN none seen/f ew Not Available [facility] ([facility]) [address] [facility], [place], [address], 11/23/2023 06:18:42 11/21/19 24 11/23/2023 UA/M W/RFL X CULTU RE, ROUTI NE yeast 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 Not Available [facility] ([facility]) [address] [facility], [place], [address], 11/23/2023 06:18:42 11/21/19 24 11/23/2023 UA/M W/RFL X CULTU RE, ROUTI NE trichomonas [employer] 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 Not Available [facility] ([facility]) [address] [facility], [place], [address], 11/23/2023 06:18:42 11/21/19 24 11/21/2023 urina lysis , dipst ick Leukocytes (reference range: negative conner/ l) Negati ve Not Available [address], [place], [address], 11/21/2023 13:44:00 11/21/19 24 11/21/2023 urina lysis , dipst ick Nitrite (reference rage: negative mg/dl) negati ve Not Available [address], [place], [address], 11/21/2023 13:44:00 11/21/19 24 11/21/2023 urina lysis , dipst ick Urobilinogen (reference range: 0.2-1 mg/dl) 0.2 Not Available [address], [place], [address], 11/21/2023 13:44:00 11/21/19 24 11/21/2023 urina lysis , dipst ick Protein (reference range: negative mg/dl) Negati ve Not Available [address], [place], [address], 11/21/2023 13:44:00 11/21/19 24 11/21/2023 urina lysis , dipst ick pH (reference range: 5-7) 5.0 Not Available [address], [place], [address], 11/21/2023 13:44:00 11/21/19 24 11/21/2023 urina lysis , dipst ick Blood (reference range: negative Chester/ l) Non-He molyze d: Trace Not Available [address], [place], [address], 11/21/2023 13:44:00 11/21/19 24 11/21/2023 urina lysis , dipst ick Specific [place] (reference range: 1.005-1.030) 1.010 Not Available [address], [place], [address], 11/21/2023 13:44:00 11/21/19 24 11/21/2023 urina lysis , dipst ick Ketone (reference range: negative mg/dl) Negati ve Not Available [address], [place], [address], 11/21/2023 13:44:00 11/21/19 24 11/21/2023 urina lysis , dipst ick Bilirubin (reference range: negative mg/dl) Negati ve Not Available [address], [place], [address], 11/21/2023 13:44:00 11/21/19 24 11/21/2023 urina lysis , dipst ick Glucose (reference range: negative mg/dl) Negati ve Not Available [address], [place], [address], 11/21/2023 13:44:00 11/21/19 24 11/21/2023 urina lysis , dipst ick Appearance Clear Not Available [address], [place], [address], 11/21/2023 13:44:00 11/21/19 24 11/21/2023 urina lysis , dipst ick Color Pale Yellow Not Available [facility] [address], [place], [address], 11/21/2023 13:44:00 12/27/19 24 12/27/2023 urina lysis , dipst ick Color Yellow Not Available [facility] [address], [place], [address], 12/27/2023 15:06:14 12/27/19 24 12/27/2023 urina lysis , dipst ick Appearance Slight ly Cloudy Not Available [facility] [address], [place], [address], 12/27/2023 15:06:14 12/27/19 24 12/27/2023 urina lysis , dipst ick Glucose (reference range: negative mg/dl) Negati ve Not Available [facility] [address] [place] [address] [address], [place], [address], 12/27/2023 15:06:14 12/27/19 24 12/27/2023 urina lysis , dipst ick Bilirubin (reference range: negative mg/dl) Negati ve Not Available [facility] [address], [place], [address], 12/27/2023 15:06:14 12/27/19 24 12/27/2023 urina lysis , dipst ick Ketone (reference range: negative mg/dl) Negati ve Not Available [facility] [address], [place], [address], 12/27/2023 15:06:14 12/27/19 24 12/27/2023 urina lysis , dipst ick Specific [place] (reference range: 1.005-1.030) 1.010 Not Available [facility] [address], [place], [address], 12/27/2023 15:06:14 12/27/19 24 12/27/2023 urina lysis , dipst ick Blood (reference range: negative Chester/ l) Non-He molyze d: Trace Not Available [facility] [address], [place], [address], 12/27/2023 15:06:14 12/27/19 24 12/27/2023 urina lysis , dipst ick pH (reference range: 5-7) 5.5 Not Available [facility] [address] [place] [address] [address], [place], [address], 12/27/2023 15:06:14 12/27/19 24 12/27/2023 urina lysis , dipst ick Protein (reference range: negative mg/dl) Negati ve Not Available [facility] [address], [place], [address], 12/27/2023 15:06:14 12/27/19 24 12/27/2023 urina lysis , dipst ick Urobilinogen (reference range: 0.2-1 mg/dl) 0.2 Not Available [facility] [address] [place] [address] [address], [place], [address], 12/27/2023 15:06:14 12/27/19 24 12/27/2023 urina lysis , dipst ick Nitrite (reference rage: negative mg/dl) negati ve Not Available [facility] [address] [place] [address] [address], [place], [address], 12/27/2023 15:06:14 12/27/19 24 12/27/2023 urina lysis , dipst ick Leukocytes (reference range: negative conner/ l) Negati ve Not Available [facility] [address], [place], [address], 12/27/2023 15:06:14 10/22/19 25 10/22/2024 ALBUM IN, RANDO M URINE W/O CREAT ININE albumin, urine 0.2 mg/dL see note: normal Refer ence Range : Refer ence Range Not estab lishe d Not Available [facility] [address] [place], [address], 10/22/2024 02:37:39 10/22/19 25 10/22/2024 ALBUM IN, RANDO M URINE W/O CREAT ININE MITESH The ADA defin es abnor malit ies in album in excre tion as follo ws: Album inuri a Categ ory Resul t (mg/g creat inine ) Clary l to Mildl y incre ased <30 Moder ately incre ased 30-29 9 Sever marciano incre ased > OR = 300 The ADA recom mends that at least two of three speci mens colle cted withi n a 3-6 month perio d be abnor mal befor e consi irasema g a patie nt to be withi n a diagn ostic categ ory. Not Available [facility] [address] [place], [address], 10/22/2024 02:37:39 10/22/19 25 10/22/2024 HEMOG LOBIN A1C hemoglobin A1C 5.4 %_of_ total _HGB <5.7 normal For the purpo se of scremilind worrellg for the prese nce of diabe meir: <5.7% Consi stent with the absen ce of diabe meir 5.7-6 .4% Consi stent with incre ased risk for diabe meir (pred iabet es) > or =6.5% Consi stent with diabe meir This assay resul t is consi stent with a decre ased risk of diabe meir. Curre ntly, no conse nsus exist marcia sawyer use of hemog lobin A1c for diagn osis of diabe meir in child jadyn. Accor digna to Ameri can Diabe meir Assoc iatio n (ADA) guide lines , hemog lobin A1c <7.0% repre sents optim al contr ol in non-p regna nt diabe tic patie nts. Diffe rent metri cs may apply to speci fic patie nt popul ation s. Stand ards of Medic al Care in Diabe meir(A DA). Not Available [facility] [address] [address] [place], [address], 10/22/2024 02:37:40 10/22/1910/22/2024 LIPID PANEL , STAND JOHNATHAN cholesterol, total 179 mg/dL <200 normal Not Available [facility] [address] [address] [place], [address], 10/22/2024 07:58:03 10/22/19 25 10/22/2024 LIPID PANEL , STAND JOHNATHAN HDL cholesterol 60 mg/dL > or = 50 normal Not Available [facility] [address] [address] [place], [address], 10/22/2024 07:58:03 10/22/1910/22/2024 LIPID PANEL , STAND JOHNATHAN triglyceride s 57 mg/dL <150 normal Not Available [facility] [address] [address] [place], [address], 10/22/2024 07:58:03 10/22/1910/22/2024 LIPID PANEL , STAND JOHNATHAN LDL-choleste rol 105 mg/dL _(tristen c) high Refer ence range : <100 Jane able range <100 mg/dL for prima ry preve ntion ; <70 mg/dL for patie nts with CHD or diabe tic patie nts with > or = 2 CHD risk facto rs. LDL-C is now calcu lated using the [facility] calcu latio n, which is a valid ated novel metho d provi ding gomez r accur acy than the Fried brannon equat ion in the estim ation of LDL-C . Sharmila n SS et al. YAQUELIN. 2013; 310(1 9): 2061- 2068 (http ://ed ucati on.Qu Elaine floodChartio. com/f aq/FA Q164) Not Available [address] [address] [place], [address], 10/22/2024 07:58:03 10/22/1910/22/2024 LIPID PANEL , STAND JOHNATHAN chol/HDLC ratio 3.0 (calc ) <5.0 normal Not Available [address], [address], 10/22/2024 07:58:03 10/22/1910/22/2024 LIPID PANEL , STAND JOHNATHAN non HDL cholesterol 119 mg/dL _(tristen c) <130 normal For patie nts with diabe meir plus 1 major ASCVD risk facto r, treat ing to a non-H DL-C goal of <100 mg/dL (LDL- C of <70 mg/dL ) is keyonna peopleso n. Not Available [address] [address] [place], [address], 10/22/2024 07:58:03 10/22/1910/22/2024 COMPR EHENS GATITO METAB OLIC PANEL glucose 79 mg/dL 65-99 normal Fasti ng refer ence inter jesus Not Available [facility] [address] [address] [place], [address], 10/22/2024 07:58:04 10/22/19 25 10/22/2024 COMPR EHENS GATITO METAB OLIC PANEL urea nitrogen (BUN) 20 mg/dL 7-25 normal Not Available [facility] [place] [address] [place], [address], 10/22/2024 07:58:04 10/22/19 25 10/22/2024 COMPR EHENS GATITO METAB OLIC PANEL creatinine 0.81 mg/dL 0.50-1 .05 normal Not Available [address], [address], 10/22/2024 07:58:04 10/22/19 25 10/22/2024 COMPR EHENS GATITO METAB OLIC PANEL eGFR 82 mL/mi n/1.7 3m2 > or = 60 normal Not Available [address], [address], 10/22/2024 07:58:04 10/22/1910/22/2024 COMPR EHENS GATITO METAB OLIC PANEL BUN/creatini ne ratio SEE NOTE: (calc ) 6-22 Not Repor jacky: BUN and Creat inine are withi n refer ence range . Not Available [address], [address], 10/22/2024 07:58:04 10/22/19 25 10/22/2024 COMPR EHENS GATITO METAB OLIC PANEL sodium 139 mmol/ L 135-14 6 normal Not Available [address], [address], 10/22/2024 07:58:04 10/22/19 25 10/22/2024 COMPR EHENS GATITO METAB OLIC PANEL potassium 4.3 mmol/ L 3.5-5. 3 normal Not Available [address], [address], 10/22/2024 07:58:04 10/22/19 25 10/22/2024 COMPR EHENS GATITO METAB OLIC PANEL chloride 104 mmol/ L 98-110 normal Not Available [address], [address], 10/22/2024 07:58:04 10/22/19 25 10/22/2024 COMPR EHENS GATITO METAB OLIC PANEL carbon dioxide 29 mmol/ L 20-32 normal Not Available [address], [address], 10/22/2024 07:58:04 10/22/19 25 10/22/2024 COMPR EHENS GATITO METAB OLIC PANEL calcium 9.1 mg/dL 8.6-10 .4 normal Not Available [address], [address], 10/22/2024 07:58:04 10/22/19 25 10/22/2024 COMPR EHENS GATIOT METAB OLIC PANEL protein, total 6.3 g/dL 6.1-8. 1 normal Not Available [address], [address], 10/22/2024 07:58:04 10/22/19 25 10/22/2024 COMPR EHENS GATITO METAB OLIC PANEL albumin 4.2 g/dL 3.6-5. 1 normal Not Available [address], [address], 10/22/2024 07:58:04 10/22/19 25 10/22/2024 COMPR EHENS GATITO METAB OLIC PANEL globulin 2.1 g/dL_ (calc ) 1.9-3. 7 normal Not Available [address], [address], 10/22/2024 07:58:04 10/22/19 25 10/22/2024 COMPR EHENS GATITO METAB OLIC PANEL albumin/glob ulin ratio 2.0 (calc ) 1.0-2. 5 normal Not Available [address], [address], 10/22/2024 07:58:04 10/22/19 25 10/22/2024 COMPR EHENS GATITO METAB OLIC PANEL bilirubin, total 0.4 mg/dL 0.2-1. 2 normal Not Available [address], [address], 10/22/2024 07:58:04 10/22/19 25 10/22/2024 COMPR EHENS GATITO METAB OLIC PANEL alkaline phosphatase 57 U/L 37-153 normal Not Available [address], [address], 10/22/2024 07:58:04 10/22/19 25 10/22/2024 COMPR EHENS GATITO METAB OLIC PANEL AST 13 U/L 10-35 normal Not Available [address], [address], 10/22/2024 07:58:04 10/22/19 25 10/22/2024 COMPR EHENS GATITO METAB OLIC PANEL ALT 9 U/L 6-29 normal Not Available [address], [address], 10/22/2024 07:58:04 10/22/19 25 10/22/2024 CBC (INCL UDES DIFF/ PLT) white blood cell count 5.8 thous and/u L 3.8-10 .8 normal Not Available [address], [address], 10/22/2024 07:58:05 10/22/19 25 10/22/2024 CBC (INCL UDES DIFF/ PLT) red blood cell count 4.51 maria m on/uL 3.80-5 .10 normal Not Available [address], [address], 10/22/2024 07:58:05 10/22/19 25 10/22/2024 CBC (INCL UDES DIFF/ PLT) hemoglobin 13.5 g/dL 11.7-1 5.5 normal Not Available [address], [address], 10/22/2024 07:58:05 10/22/1906 1110/22/2024 CBC (INCL UDES DIFF/ PLT) hematocrit 41.5 % 35.0-4 5.0 normal Not Available [address], [address], 10/22/2024 07:58:05 10/22/19 25 10/22/2024 CBC (INCL UDES DIFF/ PLT) MCV 92.0 fL 80.0-1 00.0 normal Not Available [address], [address], 10/22/2024 07:58:05 10/22/1910/22/2024 CBC (INCL UDES DIFF/ PLT) MCH 29.9 pg 27.0-3 3.0 normal Not Available [address], [address], 10/22/2024 07:58:05 10/22/1910/22/2024 CBC (INCL UDES DIFF/ PLT) MCHC 32.5 g/dL 32.0-3 6.0 normal For adult s, a sligh t decre ase in the calcu lated MCHC value (in the range of 30 to 32 g/dL) is most likel y not clini ana signi fican t; carlos er, it shoul d be inter prete d with cauti on in [facility] n with other red cell tanna eters and the patie nt's clini tristen condi tion. Not Available [address], [address], 10/22/2024 07:58:05 10/22/1910/22/2024 CBC (INCL UDES DIFF/ PLT) RDW 11.9 % 11.0-1 5.0 normal Not Available [address], [address], 10/22/2024 07:58:05 10/22/1910/22/2024 CBC (INCL UDES DIFF/ PLT) platelet count 228 thous and/u L 140-40 0 normal Not Available [address], [address], 10/22/2024 07:58:05 10/22/19 25 10/22/2024 CBC (INCL UDES DIFF/ PLT) MPV 12.3 fL 7.5-12 .5 normal Not Available [address], [address], 10/22/2024 07:58:05 10/22/19 25 10/22/2024 CBC (INCL UDES DIFF/ PLT) absolute neutrophils 2303 cells /uL 1500-7 800 normal Not Available [address], [address], 10/22/2024 07:58:05 10/22/19 25 10/22/2024 CBC (INCL UDES DIFF/ PLT) absolute lymphocytes 2529 cells /uL 850-39 00 normal Not Available [address], [address], 10/22/2024 07:58:05 10/22/19 25 10/22/2024 CBC (INCL UDES DIFF/ PLT) absolute monocytes 481 cells /uL 200-95 0 normal Not Available [address], [address], 10/22/2024 07:58:05 10/22/19 25 10/22/2024 CBC (INCL UDES DIFF/ PLT) absolute eosinophils 418 cells /uL 15-500 normal Not Available [facility] [address], [address], 10/22/2024 07:58:05 10/22/19 25 10/22/2024 CBC (INCL UDES DIFF/ PLT) absolute basophils 70 cells /uL 0-200 normal Not Available [address], [address], 10/22/2024 07:58:05 10/22/19 25 10/22/2024 CBC (INCL UDES DIFF/ PLT) neutrophils 39.7 % normal Not Available [address], [address], 10/22/2024 07:58:05 10/22/19 25 10/22/2024 CBC (INCL UDES DIFF/ PLT) lymphocytes 43.6 % normal Not Available [address], [address], 10/22/2024 07:58:05 10/22/19 25 10/22/2024 CBC (INCL UDES DIFF/ PLT) monocytes 8.3 % normal Not Available [address], [address], 10/22/2024 07:58:05 10/22/19 25 10/22/2024 CBC (INCL UDES DIFF/ PLT) eosinophils 7.2 % normal Not Available [address], [address], 10/22/2024 07:58:05 10/22/1910/22/2024 CBC (INCL UDES DIFF/ PLT) basophils 1.2 % normal Not Available [address], [address], 10/22/2024 07:58:05 10/22/1910/22/2024 VITAM IN D,25- OH,TO AIDA,I A vitamin D,25-oh,tota l,ia 38 NG/mL 30-100 normal Vitam in D Statu s 25-OH Vitam in D: Defic iency : <20 ng/mL Insuf ficie ncy: 20 - 29 ng/mL Optim al: > or = 30 ng/mL For 25-OH Vitam in D testi ng on patie nts on D2-kaye pplem entat ion and patie nts for whom quant itati on of D2 and D3 fract ions is requi red, the [facility](TM ) 25-OH VIT D, (D2,D 3), LC/MS /MS is recom eric d: order code 76175 (nani ents >2yrs ). See Note 1 Note 1 For addit ional infor kimber pickard refer to http: //katelyn [email or web address] om/fa q/FAQ 199 (This link is being provi ded for infor kalie mcleod/ educa emerita molina purpo ses only. ) Not Available [facility] [address] [place], [address], 10/22/2024 07:58:06 10/22/19 25 10/22/2024 TSH W/REF DEREK TO FT4 TSH w/reflex to FT4 3.02 mIU/L 0.40-4 .50 normal Not Available [facility] [address], [place], [address], 10/22/2024 07:58:08 07/01/20 24 07/01/2024 XR, chest , 2 view No observ ation record ed. [email or web address] [facility] [address] [facility], [place], [address], 08/20/2024 10:08:33 10/27/19 25 XR, knee, 3 view No observ ation record ed. [email or web address] [facility] [address] [facility], [place], [address], 10/26/2024 10:03:55 Result Notes None recorded. Problems Name Problem SNOMED Code Status Onset Date Resolution Date Notes Provider Name and Address Organization Details Recorded Time Increased frequency of urination 771690609 Active Not Available [facility] 4 18:10:21 Liver function tests outside reference range 602345513 Active Not Available [facility] 4 18:10:21 Fluid level behind tympanic membrane Active Not Available [facility] 4 18:10:21 Otitis externa 9656735 Active Not Available [facility] 4 18:10:21 Hypertensi ve disorder 78080558 Active Emi Quintero APRN [address], [place], [address] , [facility] 4 21:14:23 Hypothyroi dism 44046518 Active Emi Quintero APRN [address], [place], [address] , [facility] 4 21:14:28 Temporoman dibular joint disorder 21365066 Active Emi Quintero APRN [address], [place], [address] , [facility] 4 21:14:48 Acute urinary tract infection 147142510 Active Not Available [facility] 4 18:10:21 Hypokalemi a 84639545 Active Not Available [facility] 4 18:10:21 Anxiety 91984874 Active Emi Quintero APRN [address], [place] [address], [place], [address] , [facility] 4 21:14:02 Essential hypertensi on 17747506 Active Not Available [facility] 4 18:10:21 Vitamin B12 deficiency (non anemic) 01126330 Active Emi Quintero APRN [address], [place], [address] , [facility] 4 21:14:44 Urinary tract infectious disease 67062899 Active Not Available [facility] 4 18:10:21 Hemorrhoid s 62307254 Active Emi Quintero APRN [address], [place], [address] , [facility] 4 21:14:21 Posterior rhinorrhea 45151031 Active Not Available [facility] 4 18:10:21 Obstructiv e sleep apnea syndrome 97592373 Active 2016 Emi Quintero APRN [address], [place], [address] , [place] [facility] [employer] [facility] 4 21:14:37 Fatigue 57766713 Active Not Available [facility] 4 18:10:21 Dysuria 16033620 Active 2022 Not Available [facility] 4 18:10:21 Chronic sinusitis 18719918 Active 2022 Not Available [facility] 4 18:10:21 Chronic sinusitis 73823495 Active 2022 Not Available [facility] 4 18:10:21 Chronic maxillary sinusitis 83788778 Active 2022 Emi Quintero APRN [address], [place], [address] , [facility] 4 21:14:18 Chronic sphenoidal sinusitis 05709149 Active 2022 Emi Quintero APRN [address], [place], [address] , [employer] [facility] [employer] [facility] 4 21:14:14 Chronic ethmoidal sinusitis 95743546 Active 2022 Not Available [facility] 4 18:10:21 Postoperat gatito pain 979627041 Active 2022 Not Available [facility] 4 18:10:21 Cervical spondylosi s 599851714 Active 2022 Emi Quintero APRN [address], [place], [address] , [employer] [facility] [employer] [facility] 4 21:14:11 Rosacea 942312728 Active 2022 Emi Quintero APRN [address], [place], [address] , [employer] [facility] [employer] [facility] 4 21:14:40 Pain of right shoulder joint 6464436682572 9100 Active 2022 Not Available [facility] 4 18:10:21 Low back pain 042899231 Active 2023 Emi Quintero APRN [address], [place], [address] , [place] [facility] 4 21:14:31 Flank pain 172166326 Active 2023 Lizzie Franklin MD [address], [place], [address] , [place] [facility] 4 08:11:10 Recurrent urinary tract infection 120308284 Active 2023 Emi Quintero APRN [address], [place], [address] , [facility] 4 21:14:53 Kidney stone 89432946 Active 2023 VIVIANE Diaz, [place] [facility] 4 15:06:04 Overactive urinary bladder 278590169 Active 2023 Rashaad Donnelly MD [address], [place], [address] , [facility] 4 18:19:30 Atrophic vaginitis 98134474 Active 2023 Emi Quintero APRN [address], [place], [address] , [place] [facility] 4 21:14:04 Pain in left sacroiliac joint 7458475200196 9102 Active 2023 Emi Quintero APRN [address], [place], [address] , [place] [facility] 4 09:32:09 Anxiety disorder 268229543 Active 2024 Sherrell bowman MD [address], [place], [address] , [place] [facility] 5 09:23:01 Chronic neck pain 0812039066289 Active 2024 Sherrell bowman MD [address], [place], [address] , [place] [facility] 5 09:23:51 Allergic rhinitis 25749320 Active 2024 Sherrell bowman MD [address], [place], [address] , [facility] 5 09:25:34 Vitamin D deficiency 97137392 Active 2024 Sherrell bowman MD [address], [place], [address] , [facility] 5 09:30:09 Pain of left knee joint 0866276250177 07 Active 2024 Sherrell bowman MD [address], [place], [address] , [facility] 5 11:09:14 Hyperglyce juan manuel 78081882 Active 2024 Sherrell bowman MD [address] [facility] [address], [place], [address] , [facility] 5 11:24:59 Pain of right knee joint 0187306857702 00 Active 2024 CANELO Be, [facility] 5 10:04:04 Hyperlipid emia 78996940 Active 2024 CANELO Nova, [facility] 5 11:36:23 Problem Notes None recorded. Procedures Surgical History Date Name Laterality Status Provider Name and Address Organization Details Recorded Time 09/30/19 24 colonoscopy completed Lizzie Franklin MD [address], [place], [address], [facility] 11/28/2023 09:14:53 01/01/20 23 ENDOSCOPY, NASAL/SINUS, W/ SPHENOIDOTOMY (SURG) completed Pau Coughlin RN [facility] 01/09/2023 10:20:48 Tubal Ligation completed Analilia Nuñez MA [facility] 10/14/2024 11:02:49 ENDOSCOPY, NASAL/SINUS, W/ MAXILLARY ANTROSTOMY & TISSUE REMOVAL (SURG) completed Pau Coughlin RN [facility] 01/09/2023 17:27:49 ENDOSCOPY, NASAL/SINUS, W/ TOTAL ETHMOIDECTOMY (SURG) completed Pau Coughlin RN [facility] [employer] [facility] 01/04/2023 09:05:26 Imaging Results Imaging Date Name Status LastModified by Organiz ation Details LastModified Time 07/01/2024 XR, chest, 2 view completed [email or web address] [facility] [address] [facility], [place], [address], 08/20/2024 10:08:33 10/26/2024 XR, knee, 3 view completed [email or web address] [facility] [address] [facility], [place], [address], 10/26/2024 10:03:55 Procedure Notes None recorded. Medical Equipment None Reported. Allergies Allergen ID Allergen Name Allergen Category Reaction Reaction Severity Criticality Documentation Date Start Date Code Code System Note Provider Name and Address Organization Details Recorded Time 05837 No known allergy (situatio n) Not available Not available Not available Not available 03/28/2024 07091 6003 SNOMED Emiangeline Quintero, DREDGE ENGINEER [address] [facility], [address], [place], [address] , [facility] [employer] [facility] 21:10:54 No known drug allergies Medications Name [...] day by oral route for 90 days. 10/14 completed Not Available Not Available Not Available azithromy philippe 250 mg tablet TAKE 2 [...] 1 tablet every day by oral route. 10/14 completed Not Available Not Available Not Available meloxicam 15 mg tablet Take 1 tablet every day by oral route for 90 days. 2024 active Not Available Not Available Not Avai lable phenazopy ridine 200 mg tablet active Not [...] day by oral route for 90 days. 10/26 completed Not Available Not Available Not Available ciproflox acin 500 mg tablet TK [...] day by oral route as directed . 10/26 completed Synthroi d denied by insuranc e Not [...] Not Available Not Available nitrofura ntoin macrocrys aida 100 mg capsule 1 tablet 3 times [...] the vagina twice a week at bedtime 10/14 completed Not Available Not Available Not Available diclofena c sodium 75 mg tablet,de layed release TK 1 T PO BID PRN 10/14 completed Not Available Not Available Not Available hydrocort isone 2.5 % topical cream 11/29 [...] 2 PFS PO Q 4 H PRN 10/26 completed Not Available Not Available Not Available cefdinir 300 mg capsule TAKE 1 CAPSULE BY MOUTH TWICE DAILY 11/29 completed Not Available Not Available Not Available fluticaso ne propionat e 50 mcg/actua tion nasal spray,tracy pension [place] 1 spray every day by intranas al route. 10/26 completed Not Available Not Available Not Available metronida zole 0.75 % topical gel apply to face qday 10/14 completed Not Available Not Available Not Available diazepam 5 mg tablet TAKE 1 TABLET [...] day by oral route as directed . 10/26 completed Not Available Not Available Not Available cyclobenz aprine 5 mg tablet 1 po tid prn spasm 10/14 completed Not Available Not Available Not Available Ciprodex 0.3 %-0.1 % ear drops,tracy pension INSTILL 4 GTS INTO AD BID active Not Available Not Available No t Available Crestor 40 mg tablet Take 1 tablet every day by oral route. 2024 active Not Available Not Available Not Avai lable nitrofura ntoin monohydra te/macroc rystals 100 mg capsule Take 1 capsule every 12 hours by oral route for 7 days. 03/18 completed Not Available Not Available Not Available Cymbalta 30 mg capsule,d elayed release active Not Available Not Available Not Available Xyzal 5 mg tablet Take 1 tablet every day by oral route. 10/14 completed Not Available Not Available Not Available Arnuity Ellipta 100 mcg/actua tion powder for inhalatio n Inhale 1 inhalati on every day by inhalati on route as directed . 10/14 completed Not Available Not Available Not Available Soolantra 1 % topical cream apply qday [...] Updated DateTime 4 160.02 cm 26.4 kg/m2 58468.2 6 g 97.2 [degF] 71 /min 98 % 98 % 140 mm[Hg] 77 mm[Hg] Olive Gonzalez CMA [place] [employer] [facility] [employer] 4 15:19:40 Date Recorded Body height Body mass index (BMI) Body weight Body temperature Heart rate Oxygen saturation Oxygen saturation in Arterial blood by Pulse oximetry Pain severity - 0-10 verbal numeric rating [Score] - Reported Systolic blood pressure Diastolic blood pressure Provider Name and Address Organization Details Last Updated DateTime 4 160.02 cm 27.1 kg/m2 10043.6 3 g 98.2 [degF] 68 /min 97 % 97 % 8 130 mm[Hg] 72 mm[Hg] Analilia Nuñez MA [place] [employer] [facility] [employer] 4 09:08:27 Date Recorded Body height Body mass index (BMI) Body weight Body temperature Heart rate Oxygen saturation Oxygen saturation in Arterial blood by Pulse oximetry Pain severity - 0-10 verbal numeric rating [Score] - Reported Systolic blood pressure Diastolic blood pressure Provider Name and Address Organization Details Last Updated DateTime 5 160.02 cm 26.7 kg/m2 16790.4 5 g 98.2 [degF] 63 /min 96 % 96 % 3 114 mm[Hg] 70 mm[Hg] Analilia Nuñez MA [place] [facility] 5 10:57:23 Date Recorded Body height Body mass index (BMI) Body weight Pain severity - 0-10 verbal numeric rating [Score] - Reported Provider Name and Address Organization Details Last Updated DateTime 10/26/2024 160.02 cm 26.2 kg/m2 96611.67 g 3 Annie Decekr Anh [place] [facility] 10/26/2024 10:00:53 Social History Question Answer Notes LastModified by Organizat ion Details LastModified Time Tobacco Smoking Status Never Smoker Not Available [facility] 09/12/2022 00:48:42 What Is Your Level Of Alcohol Consumption? Occasional Information not available 03/30/2024 What Is Your Level Of Caffeine Consumption? Moderate [id number] Information not available 09/12/2022 How Much Tobacco Do You Chew? None [id number] Information not available 09/12/2022 In The 14 Days Before Symptom Onset, Have You Had Close Contact With A Laboratory-confi rmed COVID-19 While That Case Was Ill? No [id number] Information not available 09/12/2022 In The 14 Days Before Symptom Onset, Have You Had Close Contact With A Person Who Is Under Investigation For COVID-19 While That Person Was Ill? No [id number] Information not available 09/12/2022 Are You Currently Employed? Yes Information not available 10/14/2024 What Type Of Diet Are You Following? REGULAR [id number] Information not available 09/12/2022 Which Illicit Or Recreational Drugs Have You Used? No [id number] Information not available 09/12/2022 Do You Or Have You Ever Used E-cigarettes Or Vape? Never Used Electronic Cigarettes [id number] Information not available 09/12/2022 Have There Been Any Changes To Your Family Or Social Situation? No Information not available 03/30/2024 Do You Use Insect Repellent Routinely? No Information not available 03/30/2024 Where Do You Live? SingleLevelHouse Information not available 03/30/2024 What Was The Date Of Your Most Recent Tobacco Screening? 10/14/2024 Information not available 10/14/2024 How Many Children Do You Have? 0 [...] Used Smokeless Tobacco? Never Used Smokeless Tobacco [id number].[id number] Information not available 09/12/2022 Are There Any Smokers In Your House? No Information not available 03/30/2024 How Much Tobacco Do You Smoke? No [id number].[id number] [id number] Information not available 09/12/2022 Do You Feel Stressed (tense, Restless, Nervous, Or Anxious, Or Unable To Sleep At Night)? [id number] Information not available 03/30/2024 Do You Use Any Illicit Or Recreational Drugs? No Information not available 03/30/2024 Do You Use Sunscreen Routinely? No Information not available 03/30/2024 Have You Recently Traveled Abroad? No [id number] Information not available 09/12/2022 Do You Have Any Dietary Restrictions? No MIGRATION.07239 79544 Information not available 09/12/2022 Sex: Unknown Functional Status Question Answer Note LastModified by Organizat ion Details LastModified Time What is your exercise level? Moderate [id number] Information not available 09/12/2022 Mental Status None recorded. Family History Relationship Description Onset Age of this Age Resolved Age Notes LastModified by Organization Details LastModified Time Mother Heart disease [email or web address] Not available 2024 10:02:20 Mother Family history of stroke [email or web address] Not available 2024 10:02:55 Father History of malignant neoplasm [email or web address] Not available 2024 10:02:44 Medical History Condition Response BLINDNESS N RHEUMATIC FEVER N KIDNEY STONES N BLADDER PROBLEMS N MRSA N OTHER # 1 N POLIO N LUNG DISEASE/DISORDER N RADIATION / CHEMOTHERAPY N COPD N Other # 2 N BLOOD DISEASES N SURGERY N EAR OR HEARING PROBLEMS N MUMPS N BOWEL PROBLEMS N FEMALE PROBLEMS / INFECTIONS N DEPRESSION (INCLUDING POST ) N STROKE/TIA N THYROID DISEASE N ULCERS [...] GLAUCOMA N FOOT PROBLEM N DIVERTICULITIS N CHICKENPOX N SLEEP APNEA N ALLERGIES/HAYFEVER N INFECTIOUS DISEASE N HEART ARRHYTHMIA N PROSTATE N INSOMNIA N HIGH CHOLESTEROL / HYPERLIPIDEMIA N HYPERTHYROIDISM N EYE PROBLEMS N EATING DISORDER N EDEMA N CHRONIC PAIN SYNDROME N CAROTID BLOCKAGE N CONSTIPATION N BACK / NECK PROBLEMS N HAVE YOU BEEN HOSPITALIZED OR SEEN IN [facility] IN THE PAST YEAR ? N ATHEROSCLEROSIS [...] N PAIN N HERPES N DEMENTIA N HEADACHES/MIGRAINES N SEIZURES/EPILEPSY N VASCULAR DISEASE N PACEMAKER N DIZZINESS N HEART DISEASE/HEART PROBLEMS N KIDNEY DISEASE N DEVELOPMENTAL OR BEHAVIORAL DISORDERS N MULTIPLE SCLEROSIS N SCARLET FEVER N MENTAL DISORDER/ILLNESS N CARDIAC ARRHYTHMIA N CANCER: SPECIFY N PNEUMONIA N ATRIAL FIBRILLATION N Gall Stones N PULMONARY EMBOLISM N AUTOIMMUNE DISEASE N Gynecological History Statement/Question Response How many live births 1 Date of Last Colonoscopy Date of Last Mammogram Most Recent Bone Density Date of LMP Date of Last Pap Current Control Method Tubal Ligat ion Breast Problems no Obstetrics History GPAL:G 1 P 1 0 0 1 Type Value Multiple Births 0 Full Term 1 Induced 0 Spontaneous 0 Premature 0 Living 1 Ectopics 0 Total 1 Immunizations Vaccine Type Date Status Note Provider Nam e and Address Organization Details Recorded Time zoster recombinant 3 completed Emi Quintero, DREDGE ENGINEER [address] [facility], [facility] [address], [place], [address], [place] [facility] 03/28/2024 21:10:33 zoster recombinant 3 completed Emi Quintero APRN [address], [place], [address], [employer] [facility] [employer] [facility] 03/28/2024 21:10:33 COVID-19, mRNA, LNP-S, PF, 100 mcg/0.5mL dose or 50 mcg/0.25mL dose 2 completed [address], [place], [address], [employer] [facility] [employer] [facility] 03/28/2024 21:10:33 COVID-19, mRNA, LNP-S, PF, 100 mcg/0.5mL dose or 50 mcg/0.25mL dose 1 completed Emi Quintero APRN [address], [place], [address], [employer] [facility] [employer] [facility] 03/28/2024 21:10:33 Hep A-Hep B 3 completed Emi Quintero APRN [address], [place], [address], [employer] [facility] [employer] [facility] 03/28/2024 21:10:33 Hep A-Hep B 3 completed Emi Quintero APRN [address], [place], [address], [employer] [facility] [employer] [facility] 03/28/2024 21:10:33 Hep A-Hep B [address], [place], [address], [employer] [facility] [employer] [facility] 03/28/2024 21:10:33 Tdap 4 completed Not Available [facility] 08/16/2023 18:10:22 Influenza, split virus, quadrivalent, PF 9 completed Not Available [facility] 08/16/2023 18:10:22 Influenza, split virus, quadrivalent, PF 0 completed Not Available [facility] 08/16/2023 18:10:22 Past Encounters Encounter ID Performer Location Encounter Start Date Encounter Closed Date Diagnosis/Indication Diagnosis SNOMED-CT Code Diagnosis ICD10 Code Diagnosis Note [id number] Lizzie Franklin MD [facility] [place] [address] [place] [address] 09/15/2020 00:00:00 10/05/2020 18:09:22 [id number] Lizzie Franklin MD [facility] [place] [address] [place] [address] 09/19/2020 00:00:00 09/27/2020 13:52:50 [id number] Lizzie Franklin MD [facility] [place] [facility] [place] [address] [place] [address] 11/29/2020 00:00:00 12/08/2020 17:44:07 [id number] Lizzie Franklin MD [facility] [place] [facility] [place] [address] [place] [address] 06/13/2021 00:00:00 06/13/2021 13:16:51 [id number] EDGAR Duron S_G [facility] [place] [address] [place] [address] 2021 00:00:00 2021 10:55:35 [id number] EDGAR Duron S_[facility] [place] [address] [place] [address] 01/26/2022 00:00:00 01/26/2022 09:26:36 [id number] EDGAR Duron S_[facility] [place] [address] [place] [address] 03/13/2022 00:00:00 03/13/2022 10:37:53 [id number] EDGAR Duron S_[facility] Primary [facility] [place] [address] [place] [address] 04/04/2022 00:00:00 04/04/2022 10:06:08 [id number] Lizzie Franklin MD [facility] Primary [facility] [place] [address] [place] [address] 04/19/2022 00:00:00 04/19/2022 08:40:59 [id number] Lizzie Franklin MD [facility] Primary Care [place] [address] [place] [address] 08/20/2022 00:00:00 08/20/2022 09:01:50 [id number] Lizzie Franklin MD [facility] Primary [facility] [place] [address] [place] [address] 09/18/2022 13:55:26 09/18/2022 15:20:04 [id number] Sergey [facility] [place] [address] [place] [address] 09/25/2022 11:03:40 09/25/2022 11:47:56 Chronic sinusitis 09968440 J32.9 [id number] Lizzie Franklin MD [facility] Primary [place] [address] [place] [address] 10/01/2022 14:41:46 10/01/2022 15:11:35 [id number] Sergey Dooley MD [facility] [place] [address] [place] [address] 11/15/2022 14:06:00 11/15/2022 15:00:39 Chronic sinusitis 57766905 J32.9 Chronic ma xillary sinusitis 73210676 J32.0 Chronic sp henoidal sinusitis 52332827 J32.3 Chronic et hmoidal sinusitis 10850584 J32.2 [id number] Lizzie Franklin MD [facility] Primary Care [place] [address] [place] [address] 12/07/2022 10:18:41 12/07/2022 10:37:25 [id number] MD [facility] [place] [address] [place] [address] 01/09/2023 10:39:50 01/09/2023 11:12:40 Chronic sinusitis 05791263 J32.9 [id number] Lizzie Franklin MD [facility] [place] [facility] [address] [facility] [address] [place] [address] 04/18/2023 09:48:28 04/18/2023 11:40:48 Cervical spondylosis 786811171 M47.812 f/u in 6 weeks if no improvemen t or sooner if neededmay need MRI for further evaluation Ros[place] 630503181 L71.9 [id number] Lizzie Franklin MD [facility] Primary Care [place] [address] [place] [address] [address] [place] [address] 07/11/2023 11:49:06 07/11/2023 12:25:34 Cervical spondylosis 564538264 M47.812 no improvemen t with PT and prescripti on anti-infla mmatoriesM RI ordered Pain of ri ght shoulder joint 8060310281 9646731 M25.511 no improvemen t with PT and prescripti on anti-infla mmatoriesM RI ordered Screening for malignant neoplasm of colon 847091258 Z12.11 Anxiety 37871804 F41.9 restart escitalopr am 10 mg daily with foodReview ed potential med s/e, d/c and be seen if any si/hif/u in 3 months or sooner if needed [id number] Lizzie Franklin MD [facility] Primary Care [place] [address] [place] [address] [address] [place] [address] 08/27/2023 12:36:10 08/27/2023 12:54:08 [id number] Lizzie Franklin MD [facility] Primary Care [place] [address] [place] [address] [address] [place] [address] 09/03/2023 10:17:01 09/12/2023 16:18:26 [id number] Lizzie Franklin MD [facility] [address] [place] [address] [address] [place] [address] 10/16/2023 07:59:52 10/16/2023 08:48:43 Flank pain 374088223 R10.9 check labs, urine and CT abd/pelvis stay hydratedni trofuranto in 100 mg po bid x 7 days reviewed s/s that warrant urgent/chase rgent eval in meantime Fatigue 37676201 R53.83 L65.9 [id number] Lizzie Franklin MD [facility] [place] [facility] [address] [facility] [address] [place] [address] 11/21/2023 14:28:54 11/21/2023 14:44:38 [id number] Rashaad Donnelly MD [facility] [address] [place] [address] [address] [place] [address] 12/27/2023 14:34:00 12/27/2023 15:40:34 Kidney stone 99549830 N20.0 Overactive urinary bladder 492133709 N32.81 Atrophic vaginitis 63672 000 N95.2 Recurrent urinary tract infection 262278123 N39.0 [id number] Sherrell bowman MD [facility] Internal Med [address] [facility] [place] [address] 03/30/2024 08:57:53 03/30/2024 09:36:33 Renewal of prescription 460658930 Z76.0 Cervical spondylosis 387 382374 M47.812 Atrophic vaginitis 37295 000 N95.2 Rosacea 571514104 L71.9 Overactive urinary bladder 910774184 N32.81 Hypothyroidism 02660850 E03.9 Anxiety disorder 2950127 06 F41.9 Chronic sinusitis 761320 00 J32.9 Pain in le ft sacroiliac joint 7062742192 6481395 M53.3 [id number] Sherrell bowman MD [facility] [place] [facility] [address] [facility] [address] [place] [address] 10/14/2024 10:21:40 10/14/2024 11:27:18 Screening - NAD 193471941 Z13.9 C-scope: Dr Fernando, , next in 5 years Mammogram: OB Dr Arcos: 09/09/2203 : Neg DEXA: Get this PAP: Sees her OB Dr Arcos Get yearly flu shot, get Tdap, can do Shingrix vaccine, get COVID 19 boostersCa n do Prevnar #20 and RSV vaccine RTC in 3 months, do labs, ER if worse, she did verbalize her understand ing of the above45 minutes spent with the patient, orders provided, referral done Atrophic vaginitis 85191 000 N95.2 On estradiol 2mg tablet per vagina twice a weekSee her OB to discuss this, aware of all the side effects Anxiety disorder 7787922 06 F41.9 On buspirone 15mg 1/2 tab bidOn lexapro 10mg dailyNot suicidal or homicidalD oes well with the above medication s Hypothyroidism 72441812 E03.9 On levothyrox ine 88mcgs dailyGet lab s Allergic rhinitis 287631 04 J30.9 On flonaseOn claritin Overactive urinary bladder 762153469 N32.[address] Obando oxybutynin ER 10mg daily Rosacea 270454573 L71.9 On metronidaz ole topical gel Postmenopausal state 764 62026 Z78.0 Hyperlipid emia screening 807409100 Z13.220 Vitamin D deficiency 347 73607 E55.9 Pain of le ft knee joint 9323486854 31127 M25.562 Get a referral to ortho Screening mammography 24 069877 Z12.31 Hyperglycemia 80805002 R 73.9 [id number] Brandon Phipps MD [facility] [address] [address] 10/26/2024 09:46:12 10/26/2024 10:42:50 Pain of right knee joint 9565167284 90321 M25.561 Health Concerns Section Related Observation LastModified by Organization Detai ls LastModified Time None Recorded Concern Status LastModified by Organization Details LastModified Time None Recorded Advance Directives Directive None Recorded Payers Encounter Date Sequence Insurance Name Policy Number Policy Arevalo Covered Member ID Arevalo Member ID Guarantor Name 11/21/2023 1 [facility] [id number] Shena Fierro [id number] Shena Fierro 12/27/2023 1 [facility] [id number] Shena Fierro [id number] Shena Fierro 03/30/2024 1 [facility] [id number] Shena Fierro [id number] Shena Fierro 10/14/2024 1 [facility] [id number] Shena Fierro [id number] Shena Fierro 10/26/2024 1 [facility] [id number] Shena Fierro [id number] Shena Fierro Notes Date Note Type Note Provider Name and Address Organization Details Recorded Time 12/27/2023 text/html this patient cam e in [...] antibiotic When she has done the home gjvi-miu-moufdht urine test it come back occasionally showing nitrite positive but she has no symptoms She denies any gross hematuria or any fever or chills Rashaad Donnelly MD [address], [facility] [address], [place], [address], [place] [facility] [employer] [facility] 12/27/2023 18:24:10 03/30/2024 text/html Shena presents today [...] She would like to see ortho. Emi Quintero APRN [address], [address], [place], [address], [facility] [employer] [facility] [employer] [facility] 03/30/2024 09:36:05 10/14/2024 text/html OV 10/14/2024: Here to establish care, patient adelaida Middleton Present Hx:AnxietyOABRocas eaPain in L knee Here to discuss above and to get labs, she has noted L knee pain, she does state that she does walk 5 miles everyday to 'exercise' Sherrell Rios MD [address], [address], [place], [address], [facility] [employer] [facility] 10/14/2024 14:09:33 OBGyn Episode No OBEpisode recorded.
--- OUTSIDE RECORDS SUMMARY | 2024-11-18 13:01 | XMS_ITS | Encounter Summary ---
Author Organization [employer] Address [address] [place] [address] Care Team Providers Care Canvas Shrinker Name Role Phone Sarkis Dolan MD Primary Care Provider [phone] Encounter Details Date Type Department Care Team (Latest Contact Info) Description 11/27/2000 Outpatient Historical [facility] Sarkis Dolan MD [address] [place] [address] Unspecified essential hypertension (Primary Dx) Social History Tobacco Use Types Packs/Day Years Used Date Smoking Tobacco: Never Assessed Comments Unknown Sex and Gender Information Value Date Recorded Sex Assigned at Not on file Legal Sex Female 4:29 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
--- OUTSIDE RECORDS SUMMARY | 2024-11-18 13:01 | XMS_ITS | Encounter Summary ---
Author Organization [facility] Address [address] [place] [address] Care Team Providers Care Machine Plate Stacker Name Role Phone Sarkis Dolan MD Primary Care Provider [phone] Encounter Details Date Type Department Care Team (Late st Contact Info) Description 11/28/2000 Outpatient Historical HIS [facility] [place] [address] [place] [address] Social History Tobacco Use Types Packs/Day Years Used Date Smoking Tobacco: Never Assessed Comments Unknown Sex and Gender Information Value Date Recorded Sex Assigned at Not on file Legal Sex Female 4:29 AM ENGINEERING RECRUITER Gender Identity Not on file Sexual Orientation Not on file documented as of this encounter Plan of Treatment Not on file documented as of this encounter Visit Diagnoses Not on filedocumented in this encounter Care Teams Machine Plate Stacker Relationship Specialty Start Date End Date Sarkis Dolan MD [address] [place], [place] [id number] PCP - General 10/31/00 documented as of this encounter
--- OUTSIDE RECORDS SUMMARY | 2024-11-18 13:01 | XMS_ITS | Encounter Summary ---
Author Organization [facility] Address 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
--- OUTSIDE RECORDS SUMMARY | 2024-11-18 13:01 | XMS_ITS | Encounter Summary ---
Author Organization [facility] Address 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
--- OUTSIDE RECORDS SUMMARY | 2024-11-18 13:01 | XMS_ITS | Encounter Summary ---
Author Organization [employer] Address 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
--- OUTSIDE RECORDS SUMMARY | 2024-11-18 13:01 | XMS_ITS | Encounter Summary ---
Author Organization [facility] Address 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
--- OUTSIDE RECORDS SUMMARY | 2024-11-18 13:01 | XMS_ITS | Continuity of Care Document ---
Author Organization [facility] Address [address] [place] [address] Phone Care Team Providers Care Tooling Engineering Tech Name Role Phone Estrada OD, Chin Unavailable Unavailable Procedures Procedure Date Eye Exam Established Pt Post-op Follow-up Visit Post-op Follow-up Visit Remove Cataract, Insert Lens Presbyopia Correcting IOL IOLMaster Office/outpatient Visit, [facility] Advance Directives Directive Yes / No Effective Date File Name No Information Encounters Encounter Description Practice Location Reason(s) For Visit Diagnoses Date Provider Providers Copied on Encounter [facility], [address] [place] [address] [address], [place], [place], [id number], tel:[phone] [facility] No Information 3-201 0 Estrada OD Chin. [address] , [address], [place], [place], [facility], . tel:[phone] [facility], [address] [place] [address] [address], [place], [place], [id number], [place] tel:[phone] [facility] No Information 0 Doisy Edward. [address], [address], [place], [place], [facility], . tel:[phone] [facility], [address] [place] [address] [address], [place], [place], [id number], tel:[phone] SEC [facility] No Information Mar-1 5-201 0 Doisy Edward. [address] , [address], [place], [address], [place]. tel:[phone] [facility], [address], [place], [place], [id number], [place] tel:[phone] [facility] No Information Mar-1 4-201 0 Doisy Edward. [address] , [address], [place], [place], [facility], [place]. tel:[phone] Referring Provider: Ambika Fernandez, [address], [place], [address]. tel:[phone] [facility], [address], [place], [place], [id number], [place] tel:[phone] [facility] No Information Mar-0 8-201 0 Doisy Edward. [address] , [address], [place], [place], [facility], [place]. tel:[phone] Referring Provider: Ambika Fernandez, [address], [place], [address]. tel:[phone] Office/outpat ient Visit, [facility], [address], [place], [place], [id number], [place] tel:[phone] [facility] [place] No Information 3-201 0 Doisy Edward. [address] , [address], [place], [address], [place]. tel:[phone] Referring Provider: [address], [place], [address]. tel:[phone] Family History Family Member Type Diagnosis Age At Onset No Information Payers Payer name Insurance type Covered republican ID Authoriza tion(s) No Information Social History Type Description Quantity Date Captured Comments Sex Female Smoking Status No Information Chief Complaint And Reason For Visit No Information Reason For Referral Reason For Referral No Information History Of Present Illness Encounter Date Complaint History Of Prese nt Illness No Information Functional Status Date Functional Assessmen t No Information Instructions Date Instruction Additional Infor mation No Information Assessments Type Assessment Date No Information Patient Care Teams Name Effective Dates (start - stop) Status Members No Information
--- OUTSIDE RECORDS SUMMARY | 2024-11-18 13:01 | XMS_ITS | Encounter Summary ---
Author Organization [employer] [facility] Address [address] [place] [address] Care Team Providers Care Assistant Professor Of Chemistry Name Role Phone Sarkis Dolan MD Primary Care Provider [phone] Encounter Details Date Type Department Care Team (Late st Contact Info) Description 11/14/2000 Outpatient Historical HIS [facility] Luisito Alvarez MD [address] [place] [address] Social History Tobacco Use Types Packs/Day Years Used Date Smoking Tobacco: Never Assessed Comments Unknown Sex and Gender Information Value Date Recorded Sex Assigned at Not on file Legal Sex Female 4:29 AM HEAD OF BIOLOGY Gender Identity Not on file Sexual Orientation Not on file documented as of this encounter Plan of Treatment Not on file documented as of this encounter Visit Diagnoses Not on filedocumented in this encounter Care Teams Assistant Professor Of Chemistry Relationship Specialty Start Date End Date Sarkis oDlan MD [address] [place] [address] PCP - General 10/31/00 documented as of this encounter
--- OUTSIDE RECORDS SUMMARY | 2024-11-18 13:01 | XMS_ITS | Encounter Summary ---
Author Organization [employer] Address [address] [place] [address] Care Team Providers Care Paleontology Teacher Name Role Phone Sarkis Dolan MD Primary Care Provider [phone] Encounter Details Date Type Department Care Team (Latest Contact Info) Description 12/16/2000 Outpatient Historical [facility]ARDI[facility]UL[facility] Monroe Burnett MD [address] [facility] [address] [place] [address] Other symptoms involving cardiovascular system (Primary Dx) Social History Tobacco Use Types Packs/Day Years Used Date Smoking Tobacco: Never Assessed Comments Unknown Sex and Gender Information Value Date Recorded Sex Assigned at Not on file Legal Sex Female 4:29 AM MATERIALS HANDLING COORDINATOR Gender Identity Not on file Sexual Orientation Not on file documented as of this encounter Plan of Treatment Not on file documented as of this encounter Visit Diagnoses Diagnosis Other symptoms involving cardiovascular system- Primary documented in this encounter Care Teams Paleontology Teacher Relationship Specialty Start Date End Date Sarkis Dolan MD [address] [place], [place] [address] PCP - General 10/31/00 documented as of this encounter
--- OUTSIDE RECORDS SUMMARY | 2024-11-18 13:02 | XMS_ITS | Encounter Summary ---
Author Organization [facility] Address 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
--- OUTSIDE RECORDS SUMMARY | 2024-11-18 13:02 | XMS_ITS | Encounter Summary ---
Author Organization [facility] Address [address] [place] [address] Care Team Providers Care Pressing Machine Tender Name Role Phone Sarkis Dolan MD Primary Care Provider [phone] Encounter Details Date Type Department Care Team (Late st Contact Info) Description 10/22/2000 Outpatient Historical HIS [facility] So Garcia Social History Tobacco Use Types Packs/Day Years Used Date Smoking Tobacco: Never Assessed Comments Unknown Sex and Gender Information Value Date Recorded Sex Assigned at Not on file Legal Sex Female 4:29 AM MDS MANAGER Gender Identity Not on file Sexual Orientation Not on file documented as of this encounter Plan of Treatment Not on file documented as of this encounter Visit Diagnoses Not on filedocumented in this encounter Care Teams Pressing Machine Tender Relationship Specialty Start Date End Date Sarkis Dolan MD [address] [place] [address] PCP - General 10/31/00 documented as of this encounter
--- OUTSIDE RECORDS SUMMARY | 2024-11-18 13:02 | XMS_ITS ---
Author Organization [facility] ([address]) Address [address] [place] [address] Care Team Providers Care Pad Assembler Name Role Phone Lizzie Franklin Primary Care Provider Unavailab le Pita Salvador Unavailable [phone] ZZ-Migration, Provider Unavailable Unavailab le [facility] Encounter Medications Medication SIG [...] review and pick correct strength-formulat ion [facility]. If intended option is not shown, discontinue and re-order from Quick Search* Active ALBUTEROL (EQV-PROVENTIL HFA) 90 MCG/INH 2 PUFF(S) INHALED EVERY 6 HOURS uses prn *Please review for potential replacement for e-prescription and drug interaction check* Active Arnuity Ellipta 100 MCG/ACT USE 1 INHALATION EVERY 24 HOURS Active Encounters Encounter Location Date Provider Diagnosis [address] [place] [address] 12/28/2023 Provider SHAKEEL-Migration Allergic rhinitis due to [...] Notes * Shena FIERRODOB:1960 (64 yo F)Acc No.[id number]:12/28/2023 Patient: Shena ORELLANA Provider: Vanessa Walker :1960 A ge:63 Y S ex:Female Date:12/28/2023 Address:[address] [place], [place] [id number] Pcp:Lizzie Franklin Subjective: * Chief Complaints: * 1 . [facility] To [facility] Conversion Encounter. * Medical History: * Medications: T aking Nasacort Allergy 24HR , Notes to Pharmacist: uses prn *Please review and pick correct strength-formulation from [facility] options. If intended option is not shown, [...] * Electronic signature of Jeffery BECKFORD-Migration on 11/18/2024 at 01:02 PM CDT Sign off status: Pending * Provider: Vanessa guzman Migration Date: 0 12/28/2023 Generated for Vanessa pickering/Edwin/Janey on: 0 11/18/2024 01:02 PM CDT
--- OUTSIDE RECORDS SUMMARY | 2024-11-18 13:02 | XMS_ITS | Encounter Summary ---
Author Organization [facility] Address [address] [place] [address] Care Team Providers Care Marine Diesel Technician Name Role Phone Sarkis Dolan MD Primary Care Provider [phone] Encounter Details Date Type Department Care Team (Late st Contact Info) Description 10/30/2000 Outpatient Historical HIS [facility] Sarkis Dolan MD [address] [place] [address] Social History Tobacco Use Types Packs/Day Years Used Date Smoking Tobacco: Never Assessed Comments Unknown Sex and Gender Information Value Date Recorded Sex Assigned at Not on file Legal Sex Female 4:29 AM MANAGER FREELANCE Gender Identity Not on file Sexual Orientation Not on file documented as of this encounter Plan of Treatment Not on file documented as of this encounter Visit Diagnoses Not on filedocumented in this encounter Care Teams Marine Diesel Technician Relationship Specialty Start Date End Date Sarkis Dolan MD [address] [place] [address] PCP - General 10/31/00 documented as of this encounter
--- OUTSIDE RECORDS SUMMARY | 2024-11-18 13:02 | XMS_ITS | Encounter Summary ---
Author Organization [employer] Address [address] [place] [address] Care Team Providers Care Paper Colorer Name Role Phone Sarkis Dolan MD Primary Care Provider [phone] Encounter Details Date Type Department Care Team (Late st Contact Info) Description 03/20/2001 [facility] [address] [place] [address] Other follow-up examination(V67.59) (Primary Dx) Social History Tobacco Use Types Packs/Day Years Used Date Smoking Tobacco: Never Assessed Comments Unknown Sex and Gender Information Value Date Recorded Sex Assigned at Not on file Legal Sex Female 4:29 AM BRIM BUSTER Gender Identity Not on file Sexual Orientation Not on file documented as of this encounter Plan of Treatment Not on file documented as of this encounter Visit Diagnoses Diagnosis Other follow-up examination(V67.59)- Primary Other follow-up examination documented in this encounter Care Teams Paper Colorer Relationship Specialty Start Date End Date Sarkis Dolan MD [address] [place] [address] PCP - General 10/31/00 documented as of this encounter
--- OUTSIDE RECORDS SUMMARY | 2024-11-18 13:02 | XMS_ITS | Encounter Summary ---
Author Organization [facility] Address [address] [place] [address] Care Team Providers Care Sewer Bricklayer Name Role Phone Sarkis Dolan MD Primary Care Provider [phone] Encounter Details Date Type Department Care Team (Late st Contact Info) Description 03/27/2001 Outpatient Historical HIS [facility] Luisito Alvarez MD [address] [place] [address] Social History Tobacco Use Types Packs/Day Years Used Date Smoking Tobacco: Never Assessed Comments Unknown Sex and Gender Information Value Date Recorded Sex Assigned at Not on file Legal Sex Female 4:29 AM CAD TECHNICIAN Gender Identity Not on file Sexual Orientation Not on file documented as of this encounter Plan of Treatment Not on file documented as of this encounter Visit Diagnoses Not on filedocumented in this encounter Care Teams Sewer Bricklayer Relationship Specialty Start Date End Date Sarkis Dolan MD [address] [place] [address] PCP - General 10/31/00 documented as of this encounter
--- OUTSIDE RECORDS SUMMARY | 2024-11-18 13:02 | XMS_ITS | Encounter Summary ---
Author Organization [employer] Address [address] [place] [address] Care Team Providers Care Critical Care Nurse Name Role Phone Sarkis Dolan MD Primary Care Provider [phone] Encounter Details Date Type Department Care Team (Latest Contact Info) Description 10/30/2000 Outpatient Historical HIS [facility] [address] Irregular menstrual cycle (Primary Dx) Social History Tobacco Use Types Packs/Day Years Used Date Smoking Tobacco: Never Assessed Comments Unknown Sex and Gender Information Value Date Recorded Sex Assigned at Not on file Legal Sex Female 4:29 AM TOBACCO PRIMER MACHINE OPERATOR Gender Identity Not on file Sexual Orientation Not on file documented as of this encounter Plan of Treatment Not on file documented as of this encounter Visit Diagnoses Diagnosis Irregular menstrual cycle- Primary documented in this encounter Care Teams Critical Care Nurse Relationship Specialty Start Date End Date Sarkis Dolan MD [address] [place] [address] PCP - General 10/31/00 documented as of this encounter
--- OUTSIDE RECORDS SUMMARY | 2024-11-18 13:02 | XMS_ITS | Encounter Summary ---
Author Organization [facility] Address [address] [place] [address] Care Team Providers Care Director Network Development Name Role Phone Sarkis Dolan MD Primary Care Provider [phone] Encounter Details Date Type Department Care Team (Late st Contact Info) Description 03/27/2001 Outpatient Historical HIS [facility] Luisito Alvarez MD [address] [place] [address] Social History Tobacco Use Types Packs/Day Years Used Date Smoking Tobacco: Never Assessed Comments Unknown Sex and Gender Information Value Date Recorded Sex Assigned at Not on file Legal Sex Female 4:29 AM EDI COORDINATOR Gender Identity Not on file Sexual Orientation Not on file documented as of this encounter Plan of Treatment Not on file documented as of this encounter Visit Diagnoses Not on filedocumented in this encounter Care Teams Director Network Development Relationship Specialty Start Date End Date Sarkis Dolan MD [address] [place] [address] PCP - General 10/31/00 documented as of this encounter
--- OUTSIDE RECORDS SUMMARY | 2024-11-18 13:02 | XMS_ITS | Encounter Summary ---
Author Organization [facility] Address [address] [place] [address] Care Team Providers Care Rotary Soil Stabilizer Operator Name Role Phone Sarkis Dolan MD Primary Care Provider [phone] Encounter Details Date Type Department Care Team (Latest Contact Info) Description 10/31/2000 Outpatient Historical HIS [facility] Sarkis Lopez MD [address] [place] [address] Cough (Primary Dx) Social History Tobacco Use Types Packs/Day Years Used Date Smoking Tobacco: Never Assessed Comments Unknown Sex and Gender Information Value Date Recorded Sex Assigned at Not on file Legal Sex Female 4:29 AM LEAD INFORMATICA DEVELOPER Gender Identity Not on file Sexual Orientation Not on file documented as of this encounter Plan of Treatment Not on file documented as of this encounter Visit Diagnoses Diagnosis Cough- Primary documented in this encounter Care Teams Rotary Soil Stabilizer Operator Relationship Specialty Start Date End Date Sarkis Dolan MD [address] [place] [address] PCP - General 10/31/00 documented as of this encounter
--- OUTSIDE RECORDS SUMMARY | 2024-11-18 13:02 | XMS_ITS | Encounter Summary ---
Author Organization [facility] Address [address] [place] [address] Care Team Providers Care Conference Services Director Name Role Phone Sarkis Dolan MD Primary Care Provider [phone] Encounter Details Date Type Department Care Team (Late st Contact Info) Description 10/22/2000 Outpatient Historical HIS [facility] So Garcia Social History Tobacco Use Types Packs/Day Years Used Date Smoking Tobacco: Never Assessed Comments Unknown Sex and Gender Information Value Date Recorded Sex Assigned at Not on file Legal Sex Female 4:29 AM BATCH MAKER Gender Identity Not on file Sexual Orientation Not on file documented as of this encounter Plan of Treatment Not on file documented as of this encounter Visit Diagnoses Not on filedocumented in this encounter Care Teams Conference Services Director Relationship Specialty Start Date End Date Sarkis oDlan MD [address] [place] [address] PCP - General 10/31/00 documented as of this encounter
--- OUTSIDE RECORDS SUMMARY | 2024-11-18 13:02 | XMS_ITS | Clinical Summary ---
Author Organization [facility] [employer] Address [address] [place] [address] Care Team Providers Care Wool Sacker Name Role Phone Lizzie Franklin MD Primary Care Provider [phone] Source Comments [facility],non-owned Affiliates and Associated Physician Practices is amultiple site organization consisting of ambulatory clinics and hospital sitesin [place], [place], [place] and [place]. This disclosure is being madepursuant to the Care Everywhere program and may not contain all information available regarding this patient. Last updated 18.[facility] Social History Tobacco Use Types Packs/Day Years Used Date Smoking Tobacco: Never Assessed Comments Unknown Sex and Gender Information Value Date Recorded Sex Assigned at Not on file Legal Sex Female 6:19 AM TAX COLLECTOR Gender Identity Not on file Sexual Orientation [...] VACCINE ( - 2023-2 5 season) 2024 DEPRESSION SCREENING 07/15/2024 INFLUENZA VACCINE (Season Ended) 2025 Respiratory Syncytial Virus (RSV) Vaccine Pt: or [...] on patient's age to complete this topic Insurance [employer] MANAGED MEDICARE ADV SELF PAY NO INSURANCE Member Subscriber Plan / Payer (Ef fective for All Dates) Name:Shena Fierro Member ID:Not on file Relation to Subscriber:Not on file Name:SHENA FIERRO Subscriber ID:Not on file (Home) Address: [address] [place] [address] Payer ID:Not on file Group ID:Not on file Type:Self Pay Address: [facility] [employer] SELF PAY NO INSURANCE Member Subscriber Plan / Payer (Ef fective for All Dates) Name:Shena Fierro Member ID:Not on file Relation to Subscriber:Not on file Name:SHENA FIERRO Subscriber ID:Not on file (Home) Address: [address] [place] [address] Payer ID:Not on file Group ID:Not on file Type:Self Pay Address: [place] UNITED HE[employer] SELF PAY NO INSURANCE Member Subscriber Plan / Payer (Ef fective for All Dates) Name:Shena Fierro Anh Member ID:Not on file Relation to Subscriber:Not on file Name:SHENA FIERRO Subscriber ID:Not on file (Home) Address: [address] [place] [address] Payer ID:Not on file Group ID:Not on file Type:Self Pay Address: [place], [place] Care Teams Wool Sacker Relationship Specialty Start Date End Date Lizzie Franklin MD [address] [place] [address] [place] [address] PCP - General 05/08/22
--- OUTSIDE RECORDS SUMMARY | 2024-11-18 13:02 | XMS_ITS | Encounter Summary ---
Author Organization [facility] Address [address] [place] [address] Care Team Providers Care Head Start Teacher Name Role Phone Sakris Dolan MD Primary Care Provider [phone] Encounter Details Date Type Department Care Team (Late st Contact Info) Description 11/05/2000 Outpatient Historical [facility] Tha Almazanip Social History Tobacco Use Types Packs/Day Years Used Date Smoking Tobacco: Never Assessed Comments Unknown Sex and Gender Information Value Date Recorded Sex Assigned at Not on file Legal Sex Female 4:29 AM JOB TRACER Gender Identity Not on file Sexual Orientation Not on file documented as of this encounter Plan of Treatment Not on file documented as of this encounter Visit Diagnoses Not on filedocumented in this encounter Care Teams Head Start Teacher Relationship Specialty Start Date End Date Sarkis Dolan MD [address] [place] [address] PCP - General 10/31/00 documented as of this encounter
--- OUTSIDE RECORDS SUMMARY | 2024-11-18 13:02 | XMS_ITS | Encounter Summary ---
Author Organization [employer] [facility] Address [address] [place] [address] Care Team Providers Care Electrical Equipment Assembler Name Role Phone Sarkis Dolan MD Primary Care Provider [phone] Encounter Details Date Type Department Care Team (Latest Contact Info) Description 03/27/2001 Outpatient Historical HIS [facility] Luisito Alvarez MD [address] [place] [address] Atherosclerosis of renal artery (Primary Dx) Social History Tobacco Use Types Packs/Day Years Used Date Smoking Tobacco: Never Assessed Comments Unknown Sex and Gender Information Value Date Recorded Sex Assigned at Not on file Legal Sex Female 4:29 AM ENROLLMENT REPRESENTATIVE Gender Identity Not on file Sexual Orientation Not on file documented as of this encounter Plan of Treatment Not on file documented as of this encounter Visit Diagnoses Diagnosis Atherosclerosis of renal artery- Primary documented in this encounter Care Teams Electrical Equipment Assembler Relationship Specialty Start Date End Date Sarkis Dolan MD [address] [place] [address] PCP - General 10/31/00 documented as of this encounter
--- OUTSIDE RECORDS SUMMARY | 2024-11-18 13:02 | XMS_ITS | Encounter Summary ---
Author Organization [employer] Address [address] [place] [address] Care Team Providers Care Tonsorial Artist Name Role Phone Sarkis Dolan MD Primary Care Provider [phone] Encounter Details Date Type Department Care Team (Late st Contact Info) Description 10/31/2000 Outpatient Historical [facility] Sarkis Dolan MD [address] [place] [address] Leiomyoma of uterus, unspecified (Primary Dx) Social History Tobacco Use Types Packs/Day Years Used Date Smoking Tobacco: Never Assessed Comments Unknown Sex and Gender Information Value Date Recorded Sex Assigned at Not on file Legal Sex Female 4:29 AM ENTRY LEVEL JAVA DEVELOPER Gender Identity Not on file Sexual Orientation Not on file documented as of this encounter Plan of Treatment Not on file documented as of this encounter Visit Diagnoses Diagnosis Leiomyoma of uterus, unspecified- Primary documented in this encounter Care Teams Tonsorial Artist Relationship Specialty Start Date End Date Sarkis Dolan MD [address] [place], [place] [address] PCP - General 10/31/00 documented as of this encounter
--- OUTSIDE RECORDS SUMMARY | 2024-11-18 13:03 | XMS_ITS | Encounter Summary ---
Author Organization [facility] Address [address] [place] [address] Care Team Providers Care Crusher Name Role Phone Sarkis Dolan MD Primary Care Provider [phone] Encounter Details Date Type Department Care Team (Late st Contact Info) Description 12/30/2000 Outpatient Historical HIS [facility] Sarkis Dolan MD [address] [place] [address] Social History Tobacco Use Types Packs/Day Years Used Date Smoking Tobacco: Never Assessed Comments Unknown Sex and Gender Information Value Date Recorded Sex Assigned at Not on file Legal Sex Female 4:29 AM SWEDGER Gender Identity Not on file Sexual Orientation Not on file documented as of this encounter Plan of Treatment Not on file documented as of this encounter Visit Diagnoses Not on filedocumented in this encounter Care Teams Crusher Relationship Specialty Start Date End Date Sarkis Dolan MD [address] [place] [address] PCP - General 10/31/00 documented as of this encounter
--- OUTSIDE RECORDS SUMMARY | 2024-11-18 13:03 | XMS_ITS | Encounter Summary ---
Author Organization [employer] Address [address] [place] [address] Care Team Providers Care Automobile Body Customizer Name Role Phone Sarkis Dolan MD Primary Care Provider [phone] Encounter Details Date Type Department Care Team (Latest Contact Info) Description 02/05/2001 Inpatient Historical HIS [facility] Brian Akers MD [address] [place] [address] Leiomyoma of uterus, unspecified (Primary Dx) Social History Tobacco Use Types Packs/Day Years Used Date Smoking Tobacco: Never Assessed Comments Unknown Sex and Gender Information Value Date Recorded Sex Assigned at Not on file Legal Sex Female 4:29 AM CLAIM PROFESSIONAL Gender Identity Not on file Sexual Orientation Not on file documented as of this encounter Plan of Treatment Not on file documented as of this encounter Visit Diagnoses Diagnosis Leiomyoma of uterus, unspecified- Primary documented in this encounter Care Teams Automobile Body Customizer Relationship Specialty Start Date End Date Sarkis Dolan MD [address] [place] [address] PCP - General 10/31/00 documented as of this encounter
--- OUTSIDE RECORDS SUMMARY | 2024-11-18 13:03 | XMS_ITS | Encounter Summary ---
Author Organization [facility] Address [address] [place] [address] Care Team Providers Care Brake Lining Maker Name Role Phone Sarkis Dolan MD Primary Care Provider [phone] Encounter Details Date Type Department Care Team (Latest Contact Info) Description 03/18/2001 Outpatient Historical HIS [facility] Brian Akers MD [address] [place] [address] Follow-up examination following surgery (Primary Dx) Social History Tobacco Use Types Packs/Day Years Used Date Smoking Tobacco: Never Assessed Comments Unknown Sex and Gender Information Value Date Recorded Sex Assigned at Not on file Legal Sex Female 4:29 AM SENIOR UI SOFTWARE ENGINEER Gender Identity Not on file Sexual Orientation Not on file documented as of this encounter Plan of Treatment Not on file documented as of this encounter Visit Diagnoses Diagnosis Follow-up examination following surgery- Primary documented in this encounter Care Teams Brake Lining Maker Relationship Specialty Start Date End Date Sarkis Dolan MD [address] [place] [address] PCP - General 10/31/00 documented as of this encounter
--- OUTSIDE RECORDS SUMMARY | 2024-11-18 13:03 | XMS_ITS | Encounter Summary ---
Author Organization [employer] Address [address] [place] [address] Care Team Providers Care Shipping And Receiving Assistant Name Role Phone Sarkis Dolan MD Primary Care Provider Encounter Details Date Type Department Care Team (Late st Contact Info) Description 01/17/2001 Outpatient Historical [facility] Sarkis Dolan MD [address] [place] [address] Abdominal or pelvic swelling, mass, or lump, other specified site (Primary Dx) Social History Tobacco Use Types Packs/Day Years Used Date Smoking Tobacco: Never Assessed Comments Unknown Sex and Gender Information Value Date Recorded Sex Assigned at Not on file Legal Sex Female 4:29 AM AIRCRAFT ENGINE DISMANTLER Gender Identity Not on file Sexual Orientation Not on file documented as of this encounter Plan of Treatment Not on file documented as of this encounter Visit Diagnoses Diagnosis Abdominal or pelvic swelling, mass, or lump, other specified site- Primary documented in this encounter Care Teams Shipping And Receiving Assistant Relationship Specialty Start Date End Date Sarkis Dolan MD [address] [place] [address] PCP - General 10/31/00 documented as of this encounter
--- OUTSIDE RECORDS SUMMARY | 2024-11-18 13:03 | XMS_ITS | Encounter Summary ---
Author Organization [employer] Address [address] [place] [address] Care Team Providers Care Lead Cytogenetic Technologist Name Role Phone Sarkis Dolan MD Primary Care Provider [phone] Encounter Details Date Type Department Care Team (Latest Contact Info) Description 10/21/2000 Outpatient Historical [facility] Irregular menstrual cycle (Primary Dx) Social History Tobacco Use Types Packs/Day Years Used Date Smoking Tobacco: Never Assessed Comments Unknown Sex and Gender Information Value Date Recorded Sex Assigned at Not on file Legal Sex Female 4:29 AM MEDICAL SUPPLY TECHNICIAN Gender Identity Not on file Sexual Orientation Not on file documented as of this encounter Plan of Treatment Not on file documented as of this encounter Visit Diagnoses Diagnosis Irregular menstrual cycle- Primary documented in this encounter Care Teams Lead Cytogenetic Technologist Relationship Specialty Start Date End Date Sarkis Dolan MD [address] [place] [address] PCP - General 10/31/00 documented as of this encounter
--- OUTSIDE RECORDS SUMMARY | 2024-11-18 13:03 | XMS_ITS | Encounter Summary ---
Author Organization [facility] Address [address] [place] [address] Care Team Providers Care Photovoltaic Installer Name Role Phone Sarkis Dolan MD Primary Care Provider Encounter Details Date Type Department Care Team (Latest Contact Info) Description 02/18/2001 Outpatient Historical HIS [facility] Brian Akers MD [id number] [place] [address] Dysuria (Primary Dx) Social History Tobacco Use Types Packs/Day Years Used Date Smoking Tobacco: Never Assessed Comments Unknown Sex and Gender Information Value Date Recorded Sex Assigned at Not on file Legal Sex Female 4:29 AM COMMUNICATION ASSISTANT Gender Identity Not on file Sexual Orientation Not on file documented as of this encounter Plan of Treatment Not on file documented as of this encounter Visit Diagnoses Diagnosis Dysuria- Primary documented in this encounter Care Teams Photovoltaic Installer Relationship Specialty Start Date End Date Sarkis Dolan MD [address] [place], [place] [id number] PCP - General 10/31/00 documented as of this encounter
--- OUTSIDE RECORDS SUMMARY | 2024-11-18 13:03 | XMS_ITS | Encounter Summary ---
Author Organization [facility] Address [address] [place] [address] Care Team Providers Care Line Production Cook Name Role Phone Sarkis Dolan MD Primary Care Provider [phone] Encounter Details Date Type Department Care Team (Late st Contact Info) Description 12/24/2000 [facility]ers [facility] [address] [place] [address] Social History Tobacco Use Types Packs/Day Years Used Date Smoking Tobacco: Never Assessed Comments Unknown Sex and Gender Information Value Date Recorded Sex Assigned at Not on file Legal Sex Female 4:29 AM MECHANICAL ENGINEERING LECTURER Gender Identity Not on file Sexual Orientation Not on file documented as of this encounter Plan of Treatment Not on file documented as of this encounter Visit Diagnoses Not on filedocumented in this encounter Care Teams Line Production Cook Relationship Specialty Start Date End Date Sarkis Dolan MD [address] [place], [place] [id number] PCP - General 10/31/00 documented as of this encounter
--- OUTSIDE RECORDS SUMMARY | 2024-11-18 13:03 | XMS_ITS | Encounter Summary ---
Author Organization [facility] Address [address] [place] [address] Care Team Providers Care Lead Architect Name Role Phone Sarkis Dolan MD Primary Care Provider [phone] Encounter Details Date Type Department Care Team (Latest Contact Info) Description 10/22/2000 Outpatient Historical HIS [facility] BLDG Conversion, History Gynecological examination (Primary Dx) Social History Tobacco Use Types Packs/Day Years Used Date Smoking Tobacco: Never Assessed Comments Unknown Sex and Gender Information Value Date Recorded Sex Assigned at Not on file Legal Sex Female 4:29 AM ELECTRIC MOTOR FITTER Gender Identity Not on file Sexual Orientation Not on file documented as of this encounter Plan of Treatment Not on file documented as of this encounter Visit Diagnoses Diagnosis Gynecological examination- Primary documented in this encounter Care Teams Lead Architect Relationship Specialty Start Date End Date Sarkis Dolan MD [address] [place] [address] PCP - General 10/31/00 documented as of this encounter
--- OUTSIDE RECORDS SUMMARY | 2024-11-18 13:03 | XMS_ITS | Encounter Summary ---
Author Organization [employer] Address [address] [place] [address] Care Team Providers Care Project Development Leader Name Role Phone Sarkis Dolan MD Primary Care Provider [phone] Encounter Details Date Type Department Care Team (Latest Contact Info) Description 02/01/2001 Outpatient Historical [facility] Chuck Pemberton MD [address] [place] [address] Congenital renal agenesis and dysgenesis (Primary Dx) Social History Tobacco Use Types Packs/Day Years Used Date Smoking Tobacco: Never Assessed Comments Unknown Sex and Gender Information Value Date Recorded Sex Assigned at Not on file Legal Sex Female 4:29 AM CONSUMER STUDIES PROFESSOR Gender Identity Not on file Sexual Orientation Not on file documented as of this encounter Plan of Treatment Not on file documented as of this encounter Visit Diagnoses Diagnosis Congenital renal agenesis and dysgenesis- Primary documented in this encounter Care Teams Project Development Leader Relationship Specialty Start Date End Date Sarkis Dolan MD [address] [place] [address] PCP - General 10/31/00 documented as of this encounter
--- OUTSIDE RECORDS SUMMARY | 2024-11-18 13:03 | XMS_ITS | Encounter Summary ---
Author Organization [employer] Address [address] [place] [address] Care Team Providers Care Managing Jeweler Name Role Phone Sarkis Dolan MD Primary Care Provider [phone] Encounter Details Date Type Department Care Team (Latest Contact Info) Description 02/18/2001 Outpatient Historical [facility]PATIENT Urinary tract infection, site not specified (Primary Dx) Social History Tobacco Use Types Packs/Day Years Used Date Smoking Tobacco: Never Assessed Comments Unknown Sex and Gender Information Value Date Recorded Sex Assigned at Not on file Legal Sex Female 4:29 AM PUBLIC POLICY MEDIATOR Gender Identity Not on file Sexual Orientation Not on file documented as of this encounter Plan of Treatment Not on file documented as of this encounter Visit Diagnoses Diagnosis Urinary tract infection, site not specified- Primary documented in this encounter Care Teams Managing Jeweler Relationship Specialty Start Date End Date Sarkis Dolan MD [address] [place] [address] PCP - General 10/31/00 documented as of this encounter
--- OUTSIDE RECORDS SUMMARY | 2024-11-18 13:03 | XMS_ITS | Encounter Summary ---
Author Organization [facility] Address [address] [place] [address] Care Team Providers Care Rehab Rn Name Role Phone Sarkis Dolan MD Primary Care Provider [phone] Encounter Details Date Type Department Care Team (Late st Contact Info) Description 03/18/2001 Outpatient Historical HIS [facility] Brian Akers MD [address] [place] [address] Social History Tobacco Use Types Packs/Day Years Used Date Smoking Tobacco: Never Assessed Comments Unknown Sex and Gender Information Value Date Recorded Sex Assigned at Not on file Legal Sex Female 4:29 AM BUSINESS EMPLOYMENT SPECIALIST Gender Identity Not on file Sexual Orientation Not on file documented as of this encounter Plan of Treatment Not on file documented as of this encounter Visit Diagnoses Not on filedocumented in this encounter Care Teams Rehab Rn Relationship Specialty Start Date End Date Sarkis Dolan MD [address] [place], [place] [id number] PCP - General 10/31/00 documented as of this encounter
--- OUTSIDE RECORDS SUMMARY | 2024-11-18 13:03 | XMS_ITS | Patient Health Record ---
Author Organization [facility] [employer] [place] ([address]) Address [address] [place] [address] Care Team Providers Care Waist Fitter Name Role Phone Lizzie Franklin Primary Care Provider Unavailab le Pita Salvador Unavailable [phone] [employer], Provider Unavailable Unavailab le Allergies No [...] Status Risk Notes Problem Chronic allergic conjunctivitis (88654705) Other chronic allergic conjunctivitis (H10.45) Active confirmed Problem Allergic rhinitis caused by pollen (disorder) (50436521) Allergic rhinitis due to pollen (J30.1) Active confirmed Problem Allergic rhinitis (27735212) Other allergic rhinitis (J30.89) Active confirmed Problem Allergic rhinitis caused by animal hair and dander (688381762888698) Allergic rhinitis due to animal (cat) (dog) hair and dander (J30.81) Active confirmed Problem Polyp of nasal cavity (465579712) 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) Active confirmed Problem Chronic cough (59818084) Chronic cough (R05.3) Active confirmed Encounters Encounter Location Date Provider Diagnosis [facility] - [address] [address] 12/28/2023 Provider Renetta Allergic rhinitis due to pollen J30.1 and [...] Insured Coverage Start Date Coverage End Date [facility] [employer] [address] [address] [place] [phone] [id number] Shena Fierro Self - patient is the insured Medical (General) History Medical History History ICD Code Hypothyroidism Surgical History Surgery Date(Month/Year) C-sections 1984,, 1995 Major back surgery 1998 Bunionectomy 1996 Hospitalization History Reason Date(Month/Year) C-sections 1984,1987 and 1996 Back surgery 1998 Intestinal blockage 2020
--- OUTSIDE RECORDS SUMMARY | 2024-11-18 13:03 | XMS_ITS | Encounter Summary ---
Author Organization [facility] Address [address] [place] [address] Care Team Providers Care Visualization Developer Name Role Phone Sarkis Dolan MD Primary Care Provider [phone] Encounter Details Date Type Department Care Team (Late st Contact Info) Description 01/16/2001 Outpatient Historical HIS [facility] Luisito Alvarez MD [address] [place] [address] Social History Tobacco Use Types Packs/Day Years Used Date Smoking Tobacco: Never Assessed Comments Unknown Sex and Gender Information Value Date Recorded Sex Assigned at Not on file Legal Sex Female 4:29 AM GOVERNMENT AFFAIRS FELLOW Gender Identity Not on file Sexual Orientation Not on file documented as of this encounter Plan of Treatment Not on file documented as of this encounter Visit Diagnoses Not on filedocumented in this encounter Care Teams Visualization Developer Relationship Specialty Start Date End Date Sarkis Dolan MD [address] [place] [address] PCP - General 10/31/00 documented as of this encounter
--- OUTSIDE RECORDS SUMMARY | 2024-11-18 13:03 | XMS_ITS | Encounter Summary ---
Author Organization [facility] Address [address] [place] [address] Care Team Providers Care Manual Arts Teacher Name Role Phone Sarkis Dolan MD Primary Care Provider [phone] Encounter Details Date Type Department Care Team (Late st Contact Info) Description 03/10/2001 Outpatient Historical [facility] Sarkis Mata Social History Tobacco Use Types Packs/Day Years Used Date Smoking Tobacco: Never Assessed Comments Unknown Sex and Gender Information Value Date Recorded Sex Assigned at Not on file Legal Sex Female 4:29 AM COPY TECHNICIAN Gender Identity Not on file Sexual Orientation Not on file documented as of this encounter Plan of Treatment Not on file documented as of this encounter Visit Diagnoses Not on filedocumented in this encounter Care Teams Manual Arts Teacher Relationship Specialty Start Date End Date Sarkis Dolan MD [address] [place] [address] PCP - General 10/31/00 documented as of this encounter
--- OUTSIDE RECORDS SUMMARY | 2024-11-18 13:03 | XMS_ITS | Encounter Summary ---
Author Organization [facility] Address [address] [place] [address] Care Team Providers Care Public Health Dentist Name Role Phone Sarkis Dolan MD Primary Care Provider [phone] Encounter Details Date Type Department Care Team (Latest Contact Info) Description 03/10/2001 Outpatient Historical HIS [facility] Sarkis Mata Unspecified essential hypertension (Primary Dx) Social History Tobacco Use Types Packs/Day Years Used Date Smoking Tobacco: Never Assessed Comments Unknown Sex and Gender Information Value Date Recorded Sex Assigned at Not on file Legal Sex Female 4:29 AM PHOTOGRAMMETRIC TECH Gender Identity Not on file Sexual Orientation Not on file documented as of this encounter Plan of Treatment Not on file documented as of this encounter Visit Diagnoses Diagnosis Unspecified essential hypertension- Primary documented in this encounter Care Teams Public Health Dentist Relationship Specialty Start Date End Date Sarkis Dolan MD [address] [place] [address] PCP - General 10/31/00 documented as of this encounter
--- OUTSIDE RECORDS SUMMARY | 2024-11-18 13:03 | XMS_ITS | Encounter Summary ---
Author Organization [employer] Address [address] [place] [address] Care Team Providers Care Gasoline Locomotive Crane Operator Name Role Phone Sarkis Dolan MD Primary Care Provider [phone] Encounter Details Date Type Department Care Team (Latest Contact Info) Description 12/19/2000 Outpatient Historical HIS PATIENT IN A BED Monroe Burnett MD [address] [facility] [address] [place] [address] Vascular disorders of kidney (Primary Dx) Social History Tobacco Use Types Packs/Day Years Used Date Smoking Tobacco: Never Assessed Comments Unknown Sex and Gender Information Value Date Recorded Sex Assigned at Not on file Legal Sex Female 4:29 AM LETTER OF CREDIT DOCUMENT EXAMINER Gender Identity Not on file Sexual Orientation Not on file documented as of this encounter Plan of Treatment Not on file documented as of this encounter Visit Diagnoses Diagnosis Vascular disorders of kidney- Primary documented in this encounter Care Teams Gasoline Locomotive Crane Operator Relationship Specialty Start Date End Date Sarkis Dolan MD [address] [place], [place] [id number] PCP - General 10/31/00 documented as of this encounter
--- OUTSIDE RECORDS SUMMARY | 2024-11-18 13:03 | XMS_ITS | Encounter Summary ---
Author Organization [facility] Address [address] [place] [address] Care Team Providers Care Porcelain Enamel Repairer Name Role Phone Sarkis Dolan MD Primary Care Provider [phone] Encounter Details Date Type Department Care Team (Late st Contact Info) Description 02/18/2001 Outpatient Historical HIS [facility] Brian Akers MD [id number] [place] [address] Social History Tobacco Use Types Packs/Day Years Used Date Smoking Tobacco: Never Assessed Comments Unknown Sex and Gender Information Value Date Recorded Sex Assigned at Not on file Legal Sex Female 4:29 AM AERONAUTICS TEACHER Gender Identity Not on file Sexual Orientation Not on file documented as of this encounter Plan of Treatment Not on file documented as of this encounter Visit Diagnoses Not on filedocumented in this encounter Care Teams Porcelain Enamel Repairer Relationship Specialty Start Date End Date Sarkis Dolan MD [address] [place], [place] [id number] PCP - General 10/31/00 documented as of this encounter
--- OUTSIDE RECORDS SUMMARY | 2024-11-18 13:03 | XMS_ITS | Clinical Summary ---
Author Organization [facility] Address [address] [place] [facility] [place] [address] Phone Care Team Providers Care Studio Owner Name Role Phone Sarkis Dolan MD Primary Care Provider [phone] Allergies No known active allergies Medications amLODIPine [...] on file Legal Sex Female 4:29 AM HEEL STIFFENER Gender Identity Not on file Sexual Orientation [...] Comments DTAP/TDAP/TD VACCINES (1 - Tdap) 1980 HPV/Cotest (21-29) 1982 CERVICAL CANCER SCREENING 09/21/1991 HPV/Cotest (30-65) 09/21/1991 PAP SMEAR 09/21/1991 COLORECTAL SCREENING 2006 [...] ) (1 - 1-dose 75+ series) 2036 Procedures Procedure Name Priority Date/Time Associated Diagnosis [...] Most Recently Relevant to Health Maintenance Insurance Care Teams Studio Owner Relationship Specialty Start Date End Date Sarkis Dolan MD [address] [place] [address] PCP - General 10/31/00
== END 2024-11-18 12:47 | disposition home or self-care (01) ==
PROVIDERS: PCP Internal Medicine; Visit Provider Orthopaedic Surgery
DX: M25.562 Pain in left knee (principal)
CPT/HCPCS: 73721

== ENCOUNTER 2025-05-03 14:55 | Outpatient (CLI) | payer OTHER, SELFPAY ==
--- OUTSIDE RECORDS SUMMARY | 2023-12-28 16:30 | XMS_ITS ---
Author Organization [facility] ([address]) Address [address] [place] [address] Care Team Providers Care Big Data Platform Architect Name Role Phone Lizzie Franklin Primary Care Provider Unavailab le Pita Salvador Unavailable [phone] ZZ-Migration, Provider Unavailable Unavailab le [facility] Encounter Medications Medication SIG (Take, Route, Frequency, Duration) Notes Start Date End Date Status Cetirizine HCl 10 MG 1 tab(s) orally onc e a day 09/19/2022 Active Flonase Sensimist 27.5 MCG/SPRAY as directed intranasally once a day; Duration: 30 day(s) 09/19/2022 Active Claritin 10 MG 1 tab(s) orally once a day uses prn Active EPINEPHRINE AUTO-INJECTOR 0.3 MG DIRECTED INTRAMUSCULARLY ONCE; Duration: 1 DAY *Please review for potential replacement for e-prescription and drug interaction check* 09/19/2022 Active Levothyroxine Sodium 25 MCG 1 tab(s) orally once a day; Duration: 30 day(s) Active ALBUTEROL (EQV-PROVENTIL HFA) 90 MCG/INH 2 PUFF(S) INHALED EVERY 6 HOURS *Please review for potential replacement for e-prescription and drug interaction check* 09/19/2022 Active Nasacort Allergy 24HR uses prn *Please review and pick correct strength-formulat ion from Medispan options. If intended option is not shown, discontinue and re-order from Quick Search* Active ALBUTEROL (EQV-PROVENTIL HFA) 90 MCG/INH 2 PUFF(S) INHALED EVERY 6 HOURS uses prn *Please review for potential replacement for e-prescription and drug interaction check* Active Arnuity Ellipta 100 MCG/ACT USE 1 INHALATION EVERY 24 HOURS Active Encounters Encounter Location Date Provider Diagnosis [address] [address] 12/28/2023 Provider SHAKEEL-Migration Allergic rhinitis due to pollen J30.1 and Chronic cough R05.3 Assessments Encounter Date Diagnosis (ICD Code) Assessment Notes Treatment Notes Treatment Clinical Notes Section Notes 12/28/2023 Allergic rhinitis due to pollen (ICD-10 - J30.1) 12/28/2023 Chronic cough (ICD-10 - R05.3) Plan Of Treatment Medication Medication Name Sig Start Date Stop Date Notes Cetirizine HCl 10 MG 1 tab(s) orally onc e a day 09/19/2022 Flonase Sensimist 27.5 MCG/SPRAY as directed intranasally once a day; Duration: 30 day(s) 09/19/2022 EPINEPHRINE AUTO-INJECTOR 0.3 MG DIRECTED INTRAMUSCULARLY ONCE; Duration: 1 DAY 09/19/2022 *Please review for potential replacement for e-prescription and drug interaction check* ALBUTEROL (EQV-PROVENTIL HFA) 90 MCG/INH 2 PUFF(S) INHALED EVERY 6 HOURS 09/19/2022 *Please review for potential replacement for e-prescription and drug interaction check* Arnuity Ellipta 100 MCG/ACT USE 1 INHALATION EVERY 24 HOURS Progress Notes * Shena FIERRODOB:1960 (64 yo F)Acc No.[id number]:12/28/2023 Patient: Shena ORELLANA Provider: Vanessa Walker :1960 A ge:63 Y S ex:Female Date:12/28/2023 Address:[address] [place], [place] [id number] Pcp:Lizzie Franklin Subjective: * Chief Complaints: * 1 . Mult[facility] To Medispan Conversion Encounter. * Medical History: * Medications: T aking Nasacort Allergy 24HR , Notes to Pharmacist: uses prn *Please review and pick correct strength-formulation from YuanVspan options. If intended option is not shown, discontinue and re-order from Quick Search*, Taking ALBUTEROL (EQV-PROVENTIL HFA) 90 MCG/INH AEROSOL 2 PUFF(S) INHALED EVERY 6 HOURS , Notes to Pharmacist: uses prn *Please review for potential replacement for e-prescription and drug interaction check*, Taking Claritin 10 MG Tablet 1 tab(s) orally once a day , Notes to Pharmacist: uses prn, Taking Levothyroxine Sodium 25 MCG Tablet 1 tab(s) orally once a day Objective: * Vitals: Assessment: * Assessment: 1. C hronic cough - R05.3 (Primary) 2 . A llergic rhinitis due to pollen - J30.1 Plan: * Treatment: 2. A llergic rhinitis due to pollen Start EPINEPHRINE AUTO-INJECTOR KIT, 0.3 MG, DIRECTED, INTRAMUSCULARLY, ONCE, 1 DAY, 1, Refills 0, Notes to Pharmacist: *Please review for potential replacement for e-prescription and drug interaction check*; S tart Cetirizine HCl Tablet, 10 MG, 1 tab(s), orally, once a day; S tart Flonase Sensimist Suspension, 27.5 MCG/SPRAY, as directed, intranasally, once a day, 30 day(s). ? 3. O thers Start Arnuity Ellipta Aerosol Powder Breath Activated, 100 MCG/ACT, USE 1 INHALATION EVERY 24 HOURS, 90 Blister, Refills 3. * Billing Information: * Visit Code: * Procedure Codes: * Electronic signature of Jeffery BECKFORD-Migration on 05/03/2025 at 05:30 PM CDT Sign off status: Pending * Provider: Vanessa guzman Migration Date: 0 12/28/2023 Generated for Vanessa pickering/Edwin/Janey on: 1 05:30 PM CDT
--- NOTE | ~2025-05-03 | DEXA_ITS ---
Bone Density Report Name: ELIZABETH DILLON Age: 64 Sex: Female Ethnicity: White Date of : 1960 Indication: postmenopausal; screening for osteoporosis; hysterectomy; Referring Provider: HO, SHERRELL Study: Bone densitometry was performed. Exam Date: May 03, 2025 Accession number: [id number] Bone Density: Region BMD T-score Z-score Classification AP Spine(L1, L2, L3) 0.982 -0.3 1.3 Normal Femoral Neck (Left) 0.631 -2.0 -0.5 Osteopenia Total Hip (Left) 0.805 -1.1 0.0 Osteopenia Femoral Neck (Right) 0.659 -1.7 -0.3 Osteopenia Total Hip (Right) 0.816 -1.0 0.1 Normal Total Hip Mean 0.811 -1.1 0.1 Osteopenia World Health Organization criteria for BMD impression classify patients as: Normal (T-score at or above -1.0), Osteopenia (T-score between -1.0 and -2.5), or Osteoporosis (T-score at or below -2.5). 10-year Fracture Risk(1): Major Osteoporotic Fracture 10% Hip Fracture 1.3% Reported Risk Factors: [place] (), Neck BMD=0.631, BMI=26.4 (1) FRAX(R) Version 3.08. Fracture probability calculated for an untreated patient. Fracture probability may be lower if the patient has received treatment. Clinical Information Provided by Patient: Has used the following medications: Vitamin D Has the following medical conditions: Hysterectomy Patient maximum height was 63.0 Menopause Age: 51 Drinks caffeinated beverages Onset of menses at age 13 Number of children 3 Impression: The patient has low bone mass, based on the Left Femoral Neck T-score. The patient has an estimated ten-year risk of hip fracture of 1.3% and an estimated ten-year risk of major fracture of 10%, based on the WHO FRAX algorithm. Discussion: BONE DENSITY IS LOW AT ONE OR MORE SKELETAL SITES. This patient's lowest T-score is low at one or more skeletal sites. It meets the World Health Organization's (WHO) criteria for ?low bone mass? (T-score between -1.0 and -2.5). The patient's 10-year risk of fracture as calculated by FRAX is less than the threshold where pharmacological therapy is recommended by the National Osteoporosis Foundation (NOF). However, all treatment decisions require clinical judgment and consideration of individual patient factors, including patient preferences, comorbidities, previous drug use, risk factors not captured in the FRAX model (e.g., frailty, falls, vitamin D deficiency, increased bone turnover, interval significant decline in bone density) and possible under or overestimation of fracture risk by FRAX. The patient should follow a healthful lifestyle (good nutrition with adequate calcium and vitamin D, and appropriate weight-bearing exercise). Follow-Up: Consider repeating this study in 2 to 3 years to reassess this patient's status, or sooner if there is some new clinical indication. Reported by: FLOR on 05/03/2025 4:12:00 PM. Reviewed, dictated and finalized at location A.
--- OUTSIDE RECORDS SUMMARY | 2025-05-03 17:29 | XMS_ITS | Encounter Summary ---
Author Organization [facility] Address [address] [place] [address] Care Team Providers Care Pavilion Cutter Name Role Phone Sarkis Dolan MD Primary Care Provider [phone] Encounter Details Date Type Department Care Team (Late st Contact Info) Description 11/05/2000 Outpatient Historical [facility] Tha Almazanip Social History Tobacco Use Types Packs/Day Years Used Date Smoking Tobacco: Never Assessed Comments Unknown Sex and Gender Information Value Date Recorded Sex Assigned at Not on file Legal Sex Female 4:29 AM SENIOR OFFICE ASSISTANT Gender Identity Not on file Sexual Orientation Not on file documented as of this encounter Plan of Treatment Not on file documented as of this encounter Visit Diagnoses Not on filedocumented in this encounter Care Teams Pavilion Cutter Relationship Specialty Start Date End Date Sarkis Dolan MD [address] [place] [address] PCP - General 10/31/00 documented as of this encounter
--- OUTSIDE RECORDS SUMMARY | 2025-05-03 17:29 | XMS_ITS | Encounter Summary ---
Author Organization [facility] Address [address] [place] [address] Care Team Providers Care Railway Engineer Name Role Phone Sarkis Dolan MD Primary Care Provider [phone] Encounter Details Date Type Department Care Team (Late st Contact Info) Description 10/30/2000 Outpatient Historical HIS [facility] Sarkis Dolan MD [address] [place] [address] Social History Tobacco Use Types Packs/Day Years Used Date Smoking Tobacco: Never Assessed Comments Unknown Sex and Gender Information Value Date Recorded Sex Assigned at Not on file Legal Sex Female 4:29 AM CARPET JACK Gender Identity Not on file Sexual Orientation Not on file documented as of this encounter Plan of Treatment Not on file documented as of this encounter Visit Diagnoses Not on filedocumented in this encounter Care Teams Railway Engineer Relationship Specialty Start Date End Date Sarkis Dolan MD [address] [place] [address] PCP - General 10/31/00 documented as of this encounter
--- OUTSIDE RECORDS SUMMARY | 2025-05-03 17:29 | XMS_ITS | Encounter Summary ---
Author Organization [employer] Address [address] [place] [address] Care Team Providers Care Senior Risk Analyst Name Role Phone Sarkis Dolan MD Primary Care Provider [phone] Encounter Details Date Type Department Care Team (Latest Contact Info) Description 11/27/2000 Outpatient Historical HIS [facility] Sarkis Dolan MD [address] [place] [address] Unspecified essential hypertension (Primary Dx) Social History Tobacco Use Types Packs/Day Years Used Date Smoking Tobacco: Never Assessed Comments Unknown Sex and Gender Information Value Date Recorded Sex Assigned at Not on file Legal Sex Female 4:29 AM MOVIE CRITIC Gender Identity Not on file Sexual Orientation Not on file documented as of this encounter Plan of Treatment Not on file documented as of this encounter Visit Diagnoses Diagnosis Unspecified essential hypertension- Primary documented in this encounter Care Teams Senior Risk Analyst Relationship Specialty Start Date End Date Sarkis Dolan MD [address] [place], [place] [id number] PCP - General 10/31/00 documented as of this encounter
--- OUTSIDE RECORDS SUMMARY | 2025-05-03 17:29 | XMS_ITS | Encounter Summary ---
Author Organization [facility] Address [address] [place] [address] Care Team Providers Care Crown Assembly Machine Set Up Mechanic Name Role Phone Sarkis Dolan MD Primary Care Provider [phone] Encounter Details Date Type Department Care Team (Late st Contact Info) Description 11/28/2000 Outpatient Historical HIS [facility] [place] [address] [place] [address] Social History Tobacco Use Types Packs/Day Years Used Date Smoking Tobacco: Never Assessed Comments Unknown Sex and Gender Information Value Date Recorded Sex Assigned at Not on file Legal Sex Female 4:29 AM NETWORK RELATIONS CONSULTANT Gender Identity Not on file Sexual Orientation Not on file documented as of this encounter Plan of Treatment Not on file documented as of this encounter Visit Diagnoses Not on filedocumented in this encounter Care Teams Crown Assembly Machine Set Up Mechanic Relationship Specialty Start Date End Date Sarkis Dolan MD [address] [place], [place] [id number] PCP - General 10/31/00 documented as of this encounter
--- OUTSIDE RECORDS SUMMARY | 2025-05-03 17:29 | XMS_ITS | Encounter Summary ---
Author Organization [facility] Address [address] [place] [address] Care Team Providers Care Pot Fireman Name Role Phone Sarkis Dolan MD Primary Care Provider [phone] Encounter Details Date Type Department Care Team (Latest Contact Info) Description 11/07/[address] 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
--- OUTSIDE RECORDS SUMMARY | 2025-05-03 17:29 | XMS_ITS | Encounter Summary ---
Author Organization [facility] Address [address] [place] [address] Care Team Providers Care Racehorse Trainer Name Role Phone Sarkis Dolan MD Primary Care Provider [phone] Encounter Details Date Type Department Care Team (Late st Contact Info) Description 12/02/2000 Outpatient Historical HIS [facility] Sarkis Dolan MD [address] [place] [address] Social History Tobacco Use Types Packs/Day Years Used Date Smoking Tobacco: Never Assessed Comments Unknown Sex and Gender Information Value Date Recorded Sex Assigned at Not on file Legal Sex Female 4:29 AM MESH WORKER Gender Identity Not on file Sexual Orientation Not on file documented as of this encounter Plan of Treatment Not on file documented as of this encounter Visit Diagnoses Not on filedocumented in this encounter Care Teams Racehorse Trainer Relationship Specialty Start Date End Date Sarkis Dolan MD [address] [place] [address] PCP - General 10/31/00 documented as of this encounter
--- OUTSIDE RECORDS SUMMARY | 2025-05-03 17:29 | XMS_ITS | Encounter Summary ---
Author Organization [employer] Address [address] [place] [address] Care Team Providers Care Video Network Engineer Name Role Phone Sarkis Dolan MD Primary Care Provider [phone] Encounter Details Date Type Department Care Team (Late st Contact Info) Description 10/31/2000 Outpatient Historical [facility] Sarkis Dolan MD [address] [place] [address] Leiomyoma of uterus, unspecified (Primary Dx) Social History Tobacco Use Types Packs/Day Years Used Date Smoking Tobacco: Never Assessed Comments Unknown Sex and Gender Information Value Date Recorded Sex Assigned at Not on file Legal Sex Female 4:29 AM PARLIAMENTARY ARCHIVIST Gender Identity Not on file Sexual Orientation Not on file documented as of this encounter Plan of Treatment Not on file documented as of this encounter Visit Diagnoses Diagnosis Leiomyoma of uterus, unspecified- Primary documented in this encounter Care Teams Video Network Engineer Relationship Specialty Start Date End Date Sarkis Dolan MD [address] [place], [place] [id number] PCP - General 10/31/00 documented as of this encounter
--- OUTSIDE RECORDS SUMMARY | 2025-05-03 17:29 | XMS_ITS | Encounter Summary ---
Author Organization [facility] Address [address] [place] [address] Care Team Providers Care Welding Robot Operator Name Role Phone Sarkis Dolan MD Primary Care Provider [phone] Encounter Details Date Type Department Care Team (Latest Contact Info) Description 11/07/2000 Outpatient Historical [facility] Sarkis Dolan MD [address] [place] [address] Syncope and collapse (Primary Dx) Social History Tobacco Use Types Packs/Day Years Used Date Smoking Tobacco: Never Assessed Comments Unknown Sex and Gender Information Value Date Recorded Sex Assigned at Not on file Legal Sex Female 4:29 AM PERSONAL LOAN SPECIALIST Gender Identity Not on file Sexual Orientation Not on file documented as of this encounter Plan of Treatment Not on file documented as of this encounter Visit Diagnoses Diagnosis Syncope and collapse- Primary documented in this encounter Care Teams Welding Robot Operator Relationship Specialty Start Date End Date Sarkis Dolan MD [address] [place] [address] PCP - General 10/31/00 documented as of this encounter
--- OUTSIDE RECORDS SUMMARY | 2025-05-03 17:29 | XMS_ITS | Encounter Summary ---
Author Organization [facility] Address [address] [place] [address] Care Team Providers Care Patient Relations Manager Name Role Phone Sarkis Dolan MD Primary Care Provider [phone] Encounter Details Date Type Department Care Team (Late st Contact Info) Description 11/14/2000 Outpatient Historical HIS [facility] Luisito Alvarez MD [address] [place] [address] Social History Tobacco Use Types Packs/Day Years Used Date Smoking Tobacco: Never Assessed Comments Unknown Sex and Gender Information Value Date Recorded Sex Assigned at Not on file Legal Sex Female 4:29 AM WEALTH MANAGEMENT ADVISOR Gender Identity Not on file Sexual Orientation Not on file documented as of this encounter Plan of Treatment Not on file documented as of this encounter Visit Diagnoses Not on filedocumented in this encounter Care Teams Patient Relations Manager Relationship Specialty Start Date End Date Sarkis Dolan MD [address] [place] [address] PCP - General 10/31/00 documented as of this encounter
--- OUTSIDE RECORDS SUMMARY | 2025-05-03 17:29 | XMS_ITS | Encounter Summary ---
Author Organization [facility] Address [address] [place] [address] Care Team Providers Care Rn Camp Name Role Phone Sarkis Dolan MD Primary Care Provider [phone] Encounter Details Date Type Department Care Team (Latest Contact Info) Description 10/31/2000 Outpatient Historical HIS [facility] Sarkis Lopez MD [address] [place] [address] Cough (Primary Dx) Social History Tobacco Use Types Packs/Day Years Used Date Smoking Tobacco: Never Assessed Comments Unknown Sex and Gender Information Value Date Recorded Sex Assigned at Not on file Legal Sex Female 4:29 AM COMPLIANCE LEAD Gender Identity Not on file Sexual Orientation Not on file documented as of this encounter Plan of Treatment Not on file documented as of this encounter Visit Diagnoses Diagnosis Cough- Primary documented in this encounter Care Teams Rn Camp Relationship Specialty Start Date End Date Sarkis Dolan MD [address] [place] [address] PCP - General 10/31/00 documented as of this encounter
--- OUTSIDE RECORDS SUMMARY | 2025-05-03 17:29 | XMS_ITS | Encounter Summary ---
Author Organization [employer] Address [address] [place] [address] Care Team Providers Care Media Aid Name Role Phone Sarkis Dolan MD Primary Care Provider [phone] Encounter Details Date Type Department Care Team (Latest Contact Info) Description 12/16/2000 Outpatient Historical [facility] Monroe Burnett MD [address] [facility] [address] [place] [address] Other symptoms involving cardiovascular system (Primary Dx) Social History Tobacco Use Types Packs/Day Years Used Date Smoking Tobacco: Never Assessed Comments Unknown Sex and Gender Information Value Date Recorded Sex Assigned at Not on file Legal Sex Female 4:29 AM GUM MACHINE FILLER Gender Identity Not on file Sexual Orientation Not on file documented as of this encounter Plan of Treatment Not on file documented as of this encounter Visit Diagnoses Diagnosis Other symptoms involving cardiovascular system- Primary documented in this encounter Care Teams Media Aid Relationship Specialty Start Date End Date Sarkis Dolan MD [address] [place], [place] [id number] PCP - General 10/31/00 documented as of this encounter
--- OUTSIDE RECORDS SUMMARY | 2025-05-03 17:29 | XMS_ITS | Encounter Summary ---
Author Organization [facility] Address [address] [place] [address] Care Team Providers Care Nut Blanker Operator Name Role Phone Sarkis Dolan MD Primary Care Provider [phone] Encounter Details Date Type Department Care Team (Latest Contact Info) Description 11/25/2000 Outpatient Historical HIS [facility] Sarkis Lopez MD [address] [place] [address] Other screening mammogram (Primary Dx) Social History Tobacco Use Types Packs/Day Years Used Date Smoking Tobacco: Never Assessed Comments Unknown Sex and Gender Information Value Date Recorded Sex Assigned at Not on file Legal Sex Female 4:29 AM HYPERION DEVELOPER Gender Identity Not on file Sexual Orientation Not on file documented as of this encounter Plan of Treatment Not on file documented as of this encounter Visit Diagnoses Diagnosis Other screening mammogram- Primary documented in this encounter Care Teams Nut Blanker Operator Relationship Specialty Start Date End Date Sarkis Dolan MD [address] [place] [address] PCP - General 10/31/00 documented as of this encounter
--- OUTSIDE RECORDS SUMMARY | 2025-05-03 17:29 | XMS_ITS | Encounter Summary ---
Author Organization [facility] Address [address] [place] [address] Care Team Providers Care Welder Assembler Name Role Phone Sarkis Dolan MD Primary Care Provider [phone] Encounter Details Date Type Department Care Team (Late st Contact Info) Description 12/16/2000 Outpatient Historical [facility] [address] [facility] [place] [address] Haley Yang MD [address] [place] [address] Social History Tobacco Use Types Packs/Day Years Used Date Smoking Tobacco: Never Assessed Comments Unknown Sex and Gender Information Value Date Recorded Sex Assigned at Not on file Legal Sex Female 4:29 AM IT INVESTMENT/PORTFOLIO MANAGER Gender Identity Not on file Sexual Orientation Not on file documented as of this encounter Plan of Treatment Not on file documented as of this encounter Visit Diagnoses Not on filedocumented in this encounter Care Teams Welder Assembler Relationship Specialty Start Date End Date Sarkis Dolan MD [address] [place] [address] PCP - General 10/31/00 documented as of this encounter
--- OUTSIDE RECORDS SUMMARY | 2025-05-03 17:29 | XMS_ITS | Encounter Summary ---
Author Organization [facility] Address [address] [place] [address] Care Team Providers Care Community Living Specialist Name Role Phone Sarkis Dolan MD Primary Care Provider Encounter Details Date Type Department Care Team (Late st Contact Info) Description 11/19/2000 Outpatient Historical [facility] Tha Almazanip Social History Tobacco Use Types Packs/Day Years Used Date Smoking Tobacco: Never Assessed Comments Unknown Sex and Gender Information Value Date Recorded Sex Assigned at Not on file Legal Sex Female 4:29 AM DIRECTOR RIVER RESTORATION Gender Identity Not on file Sexual Orientation Not on file documented as of this encounter Plan of Treatment Not on file documented as of this encounter Visit Diagnoses Not on filedocumented in this encounter Care Teams Community Living Specialist Relationship Specialty Start Date End Date Sarkis Dolan MD [address] [place] [address] PCP - General 10/31/00 documented as of this encounter
--- OUTSIDE RECORDS SUMMARY | 2025-05-03 17:30 | XMS_ITS | Patient Health Record ---
Author Organization [facility] Address [address] [place], [place] [address] Care Team Providers Care Offset Assistant Press Operator Name Role Phone ELIJAH VERDUGO Unavailable [phone] Lizzie Franklin Unavailable Unavailable Reason For Referral No Information Plan Of Treatment No Information Insurance Providers Payer Name Payer Address Payer Phone Subscriber Number Group Number Insured Name Patient Relationship to Insured Coverage Start Date Coverage End Date [facility] [address] [address] [place] [id number] ELIZABETH DILLON Self - patient is the insured
--- OUTSIDE RECORDS SUMMARY | 2025-05-03 17:30 | XMS_ITS | Encounter Summary ---
Author Organization [facility] Address [address] [place] [address] Care Team Providers Care Drilling Assistant Name Role Phone Sarkis Dolan MD Primary Care Provider [phone] Encounter Details Date Type Department Care Team (Late st Contact Info) Description 10/30/2000 Outpatient Historical HIS [facility] Sarkis Dolan MD [address] [place] [address] Social History Tobacco Use Types Packs/Day Years Used Date Smoking Tobacco: Never Assessed Comments Unknown Sex and Gender Information Value Date Recorded Sex Assigned at Not on file Legal Sex Female 4:29 AM AIR TOOL OPERATOR Gender Identity Not on file Sexual Orientation Not on file documented as of this encounter Plan of Treatment Not on file documented as of this encounter Visit Diagnoses Not on filedocumented in this encounter Care Teams Drilling Assistant Relationship Specialty Start Date End Date Sarkis Dolan MD [address] [place] [address] PCP - General 10/31/00 documented as of this encounter
--- OUTSIDE RECORDS SUMMARY | 2025-05-03 17:30 | XMS_ITS | Encounter Summary ---
Author Organization [facility] Address [address] [place] [address] Care Team Providers Care Oil Burner Servicer And Installer Name Role Phone Sarkis Dolan MD Primary Care Provider [phone] Encounter Details Date Type Department Care Team (Late st Contact Info) Description 03/27/2001 Outpatient Historical HIS [facility] Luisito Alvarez MD [address] [place] [address] Social History Tobacco Use Types Packs/Day Years Used Date Smoking Tobacco: Never Assessed Comments Unknown Sex and Gender Information Value Date Recorded Sex Assigned at Not on file Legal Sex Female 4:29 AM REEFER TRUCK DRIVER Gender Identity Not on file Sexual Orientation Not on file documented as of this encounter Plan of Treatment Not on file documented as of this encounter Visit Diagnoses Not on filedocumented in this encounter Care Teams Oil Burner Servicer And Installer Relationship Specialty Start Date End Date Sarkis Dolan MD [address] [place] [address] PCP - General 10/31/00 documented as of this encounter
--- OUTSIDE RECORDS SUMMARY | 2025-05-03 17:30 | XMS_ITS | Encounter Summary ---
Author Organization [facility] Address [address] [place] [address] Care Team Providers Care Feed House Supervisor Name Role Phone Sarkis Dolan MD Primary Care Provider [phone] Encounter Details Date Type Department Care Team (Late st Contact Info) Description 03/27/2001 Outpatient Historical HIS [facility] Luisito Alvarez MD [address] [place] [address] Social History Tobacco Use Types Packs/Day Years Used Date Smoking Tobacco: Never Assessed Comments Unknown Sex and Gender Information Value Date Recorded Sex Assigned at Not on file Legal Sex Female 4:29 AM SYSTEMS SOFTWARE MANAGER Gender Identity Not on file Sexual Orientation Not on file documented as of this encounter Plan of Treatment Not on file documented as of this encounter Visit Diagnoses Not on filedocumented in this encounter Care Teams Feed House Supervisor Relationship Specialty Start Date End Date Sarkis Dolan MD [address] [place] [address] PCP - General 10/31/00 documented as of this encounter
--- OUTSIDE RECORDS SUMMARY | 2025-05-03 17:31 | XMS_ITS | Encounter Summary ---
Author Organization [facility] Address [address] [place] [address] Care Team Providers Care Pillar Worker Name Role Phone Sarkis Dolan MD Primary Care Provider Encounter Details Date Type Department Care Team (Late st Contact Info) Description 03/18/2001 Outpatient Historical HIS [facility] Brian Akers MD [address] [place] [address] Social History Tobacco Use Types Packs/Day Years Used Date Smoking Tobacco: Never Assessed Comments Unknown Sex and Gender Information Value Date Recorded Sex Assigned at Not on file Legal Sex Female 4:29 AM MANAGER BAKERY Gender Identity Not on file Sexual Orientation Not on file documented as of this encounter Plan of Treatment Not on file documented as of this encounter Visit Diagnoses Not on filedocumented in this encounter Care Teams Pillar Worker Relationship Specialty Start Date End Date Sarkis Dolan MD [address] [place], [place] [address] PCP - General 10/31/00 documented as of this encounter
--- OUTSIDE RECORDS SUMMARY | 2025-05-03 17:31 | XMS_ITS | Encounter Summary ---
Author Organization [facility] Address [address] [place] [address] Care Team Providers Care Telegraph Service Clerk Name Role Phone Sarkis Dolan MD Primary Care Provider [phone] Encounter Details Date Type Department Care Team (Latest Contact Info) Description 03/10/2001 Outpatient Historical HIS [facility] Sarkis Mata Unspecified essential hypertension (Primary Dx) Social History Tobacco Use Types Packs/Day Years Used Date Smoking Tobacco: Never Assessed Comments Unknown Sex and Gender Information Value Date Recorded Sex Assigned at Not on file Legal Sex Female 4:29 AM OFFICE WORKER Gender Identity Not on file Sexual Orientation Not on file documented as of this encounter Plan of Treatment Not on file documented as of this encounter Visit Diagnoses Diagnosis Unspecified essential hypertension- Primary documented in this encounter Care Teams Telegraph Service Clerk Relationship Specialty Start Date End Date Sarkis Dolan MD [address] [place] [address] PCP - General 10/31/00 documented as of this encounter
--- OUTSIDE RECORDS SUMMARY | 2025-05-03 17:31 | XMS_ITS | Encounter Summary ---
Author Organization [employer] Address [address] [place] [address] Care Team Providers Care Wait Staff Name Role Phone Sarkis Dolan MD Primary Care Provider [phone] Encounter Details Date Type Department Care Team (Late st Contact Info) Description 03/20/2001 Outpatient [facility] [address] [place] [address] Other follow-up examination(V67.59) (Primary Dx) Social History Tobacco Use Types Packs/Day Years Used Date Smoking Tobacco: Never Assessed Comments Unknown Sex and Gender Information Value Date Recorded Sex Assigned at Not on file Legal Sex Female 4:29 AM EXHIBIT BUILDER Gender Identity Not on file Sexual Orientation Not on file documented as of this encounter Plan of Treatment Not on file documented as of this encounter Visit Diagnoses Diagnosis Other follow-up examination(V67.59)- Primary Other follow-up examination documented in this encounter Care Teams Wait Staff Relationship Specialty Start Date End Date Sarkis Dolan MD [address] [place] [address] PCP - General 10/31/00 documented as of this encounter
--- OUTSIDE RECORDS SUMMARY | 2025-05-03 17:31 | XMS_ITS | Clinical Summary ---
Author Organization [facility] Address [address] [address] Phone Care Team Providers Care Special Agent In Charge Name Role Phone Sarkis Dolan MD Primary Care Provider [phone] Allergies No known active allergies Medications amLODIPine [...] on file Legal Sex Female 4:29 AM SAWMILL SUPERVISOR Gender Identity Not on file Sexual Orientation Not on file Last Filed Vital Signs Vital Sign Reading Time Taken Comments Blood Pressure 132/77 12/23/2015 12:21 PM CDT Pulse 58 12/23/2015 12:21 PM CDT Temperature - - Respiratory Rate - - Oxygen Saturation - - Inhaled Oxygen Concentration - - Weight 70.3 kg (155 lb) 12/23/2015 12:21 PM CDT Height 160 cm (5' 3) 12/23/2015 12:21 PM CDT Body Mass Index [...] 12/15/19 16, 12/13/2015, 09/29/2014, Additional history exists Preventative Visit- Commercial 07/15/2024 INFLUENZA VACCINE (#1) 2025 RSV VACCINE (60+ or ) (1 - [...] Most Recently Relevant to Health Maintenance Insurance [facility] OPTIONS PPO [id number] Care Teams Special Agent In Charge Relationship Specialty Start Date End Date Sarkis Dolan MD [address] [place] [address] PCP - General 10/31/00
--- OUTSIDE RECORDS SUMMARY | 2025-05-03 17:31 | XMS_ITS | Encounter Summary ---
Author Organization [facility] Address [address] [place] [address] Care Team Providers Care Credit Control Manager Name Role Phone Sarkis Dolan MD Primary Care Provider [phone] Encounter Details Date Type Department Care Team (Latest Contact Info) Description 10/22/2000 Outpatient Historical HIS [facility] BLDG Conversion, History Gynecological examination (Primary Dx) Social History Tobacco Use Types Packs/Day Years Used Date Smoking Tobacco: Never Assessed Comments Unknown Sex and Gender Information Value Date Recorded Sex Assigned at Not on file Legal Sex Female 4:29 AM OLERICULTURE TEACHER Gender Identity Not on file Sexual Orientation Not on file documented as of this encounter Plan of Treatment Not on file documented as of this encounter Visit Diagnoses Diagnosis Gynecological examination- Primary documented in this encounter Care Teams Credit Control Manager Relationship Specialty Start Date End Date Sarkis Dolan MD [address] [place] [address] PCP - General 10/31/00 documented as of this encounter
--- OUTSIDE RECORDS SUMMARY | 2025-05-03 17:31 | XMS_ITS | Encounter Summary ---
Author Organization [facility] Address [address] [place] [address] Care Team Providers Care Central Service Supply Distributor Name Role Phone Sarkis Dolan MD Primary Care Provider [phone] Encounter Details Date Type Department Care Team (Late st Contact Info) Description 10/22/2000 Outpatient Historical HIS [facility] So Garcia Social History Tobacco Use Types Packs/Day Years Used Date Smoking Tobacco: Never Assessed Comments Unknown Sex and Gender Information Value Date Recorded Sex Assigned at Not on file Legal Sex Female 4:29 AM ROBOTIC TOY INVENTOR Gender Identity Not on file Sexual Orientation Not on file documented as of this encounter Plan of Treatment Not on file documented as of this encounter Visit Diagnoses Not on filedocumented in this encounter Care Teams Central Service Supply Distributor Relationship Specialty Start Date End Date Sarkis Dolan MD [address] [place] [address] PCP - General 10/31/00 documented as of this encounter
--- OUTSIDE RECORDS SUMMARY | 2025-05-03 17:31 | XMS_ITS | Encounter Summary ---
Author Organization [employer] Address [address] [place] [address] Care Team Providers Care Gis Analyst Developer Name Role Phone Sarkis Dolan MD Primary Care Provider [phone] Encounter Details Date Type Department Care Team (Late st Contact Info) Description 01/17/2001 Outpatient Historical [facility] Sarkis Dolan MD [address] [place] [address] Abdominal or pelvic swelling, mass, or lump, other specified site (Primary Dx) Social History Tobacco Use Types Packs/Day Years Used Date Smoking Tobacco: Never Assessed Comments Unknown Sex and Gender Information Value Date Recorded Sex Assigned at Not on file Legal Sex Female 4:29 AM CRAFT DEMONSTRATOR Gender Identity Not on file Sexual Orientation Not on file documented as of this encounter Plan of Treatment Not on file documented as of this encounter Visit Diagnoses Diagnosis Abdominal or pelvic swelling, mass, or lump, other specified site- Primary documented in this encounter Care Teams Gis Analyst Developer Relationship Specialty Start Date End Date Sarkis Dolan MD [address] [place] [address] PCP - General 10/31/00 documented as of this encounter
--- OUTSIDE RECORDS SUMMARY | 2025-05-03 17:31 | XMS_ITS | Encounter Summary ---
Author Organization [facility] Address [address] [place] [address] Care Team Providers Care Loading Dock Helper Name Role Phone Sakris Dolan MD Primary Care Provider [phone] Encounter Details Date Type Department Care Team (Late st Contact Info) Description 02/18/2001 Outpatient Historical HIS [facility] Brian Akers MD [address] [place] [address] Social History Tobacco Use Types Packs/Day Years Used Date Smoking Tobacco: Never Assessed Comments Unknown Sex and Gender Information Value Date Recorded Sex Assigned at Not on file Legal Sex Female 4:29 AM MERCHANDISE ADJUSTMENT CLERK Gender Identity Not on file Sexual Orientation Not on file documented as of this encounter Plan of Treatment Not on file documented as of this encounter Visit Diagnoses Not on filedocumented in this encounter Care Teams Loading Dock Helper Relationship Specialty Start Date End Date Sarkis Dolan MD [address] [place], [place] [address] PCP - General 10/31/00 documented as of this encounter
--- OUTSIDE RECORDS SUMMARY | 2025-05-03 17:31 | XMS_ITS | Clinical Summary ---
Author Organization [facility] Address [address] [place] [address] Care Team Providers Care Nuclear Power Plant Engineer Name Role Phone Lizzie Franklin MD Primary Care Provider Source Comments [facility],non-owned Affiliates and Associated Physician Practices is amultiple site organization consisting of ambulatory clinics and hospital sitesin [place], [place], [place]. This disclosure is being madepursuant to the Care Everywhere program and may not contain all information available regarding this patient. Last updated 18.[facility] Social History Tobacco Use Types Packs/Day Years Used Date Smoking Tobacco: Never Assessed Comments Unknown Sex and Gender Information Value Date Recorded Sex Assigned at Not on file Legal Sex Female 6:19 AM FACS TEACHER Gender Identity Not on file Sexual [...] SCREENING 1961 LIPID TESTING 1961 MAMMOGRAM 1961 HIV SCREENING 1976 HEPATITIS C SCREENING 09/16/1979 DTAP/TDAP/TD VACCINES (1 - Tdap) 1980 PAP SMEAR 1982 PNEUMOCOCCAL VACCINE 50+ (1 of 1 - PCV) 09/21/2011 ZOSTER VACCINE (1 of 2) 09/21/2011 DEPRESSION SCREENING 07/15/2024 MEDICARE AWV CALENDAR YEAR 2024 COVID-19 VACCINE ( - 2024-2 5 season) 2025 INFLUENZA VACCINE (#1) 2025 Respiratory Syncytial Virus (RSV) Vaccine Pt: [...] patient's age to complete this topic Insurance MANAGED MEDICARE ADV SELF PAY NO INSURANCE Member Subscriber Plan / Payer (Ef fective for All Dates) Name:Shena Fierro Member ID:Not on file Relation to Subscriber:Not on file Name:SHENA FIERRO Subscriber ID:Not on file (Home) Address: [address] [place] [address] Payer ID:Not on file Group ID:Not on file Type:Self Pay Address: [place], [place] [employer] UNITED [employer]ARE SELF PAY NO INSURANCE Member Subscriber Plan / Payer (Ef fective for All Dates) Name:Shena Fierro Member ID:Not on file Relation to Subscriber:Not on file Name:WILMASHENA Subscriber ID:Not on file (Home) Address: [address] [place] [address] Payer ID:Not on file Group ID:Not on file Type:Self Pay Address: [place], [place] [employer] SELF PAY NO INSURANCE Member Subscriber Plan / Payer (Ef fective for All Dates) Name:Shena Fierro Member ID:Not on file Relation to Subscriber:Not on file Name:SHENA FIERRO Subscriber ID:Not on file (Home) Address: [address] [place] [id number] Payer ID:Not on file Group ID:Not on file Type:Self Pay Address: [place], [place] Care Teams Nuclear Power Plant Engineer Relationship Specialty Start Date End Date Lizzie Franklin MD [address] [place] [address] [place] [address] PCP - General 05/08/22
--- OUTSIDE RECORDS SUMMARY | 2025-05-03 17:31 | XMS_ITS | Encounter Summary ---
Author Organization [employer] Address [address] [place] [address] Care Team Providers Care Roll Up Guider Operator Name Role Phone Sarkis Dolan MD Primary Care Provider [phone] Encounter Details Date Type Department Care Team (Latest Contact Info) Description 10/21/2000 Outpatient Historical [facility],NON-PATIENT [facility] Irregular menstrual cycle (Primary Dx) Social History Tobacco Use Types Packs/Day Years Used Date Smoking Tobacco: Never Assessed Comments Unknown Sex and Gender Information Value Date Recorded Sex Assigned at Not on file Legal Sex Female 4:29 AM EMAIL MANAGER Gender Identity Not on file Sexual Orientation Not on file documented as of this encounter Plan of Treatment Not on file documented as of this encounter Visit Diagnoses Diagnosis Irregular menstrual cycle- Primary documented in this encounter Care Teams Roll Up Guider Operator Relationship Specialty Start Date End Date Sarkis Dolan MD [address] [place] [address] PCP - General 10/31/00 documented as of this encounter
--- OUTSIDE RECORDS SUMMARY | 2025-05-03 17:31 | XMS_ITS | Encounter Summary ---
Author Organization [facility] Address [address] [place] [address] Care Team Providers Care Tobacco Curer Name Role Phone Sarkis Dolan MD Primary Care Provider [phone] Encounter Details Date Type Department Care Team (Latest Contact Info) Description 03/18/2001 Outpatient Historical HIS [facility] Brina Akers MD [address] [place] [address] Follow-up examination following surgery (Primary Dx) Social History Tobacco Use Types Packs/Day Years Used Date Smoking Tobacco: Never Assessed Comments Unknown Sex and Gender Information Value Date Recorded Sex Assigned at Not on file Legal Sex Female 4:29 AM CHIEF RADIOLOGY Gender Identity Not on file Sexual Orientation Not on file documented as of this encounter Plan of Treatment Not on file documented as of this encounter Visit Diagnoses Diagnosis Follow-up examination following surgery- Primary documented in this encounter Care Teams Tobacco Curer Relationship Specialty Start Date End Date Sarkis Dolan MD [address] [place] [address] PCP - General 10/31/00 documented as of this encounter
--- OUTSIDE RECORDS SUMMARY | 2025-05-03 17:31 | XMS_ITS | Encounter Summary ---
Author Organization [facility] Address [address] [place] [address] Care Team Providers Care Landscaping And Groundskeeping Laborer Name Role Phone Sarkis Dolan MD Primary Care Provider [phone] Encounter Details Date Type Department Care Team (Latest Contact Info) Description 02/18/2001 Outpatient Historical HIS [facility] Brian Akers MD [id number] [place] [address] Dysuria (Primary Dx) Social History Tobacco Use Types Packs/Day Years Used Date Smoking Tobacco: Never Assessed Comments Unknown Sex and Gender Information Value Date Recorded Sex Assigned at Not on file Legal Sex Female 4:29 AM TRAVELING CLERK Gender Identity Not on file Sexual Orientation Not on file documented as of this encounter Plan of Treatment Not on file documented as of this encounter Visit Diagnoses Diagnosis Dysuria- Primary documented in this encounter Care Teams Landscaping And Groundskeeping Laborer Relationship Specialty Start Date End Date Sarkis Dolan MD [address] [place], [place] [id number] PCP - General 10/31/00 documented as of this encounter
--- OUTSIDE RECORDS SUMMARY | 2025-05-03 17:31 | XMS_ITS | Encounter Summary ---
Author Organization [facility] Address [address] [place] [address] Care Team Providers Care Mobile Ui/Ux Designer Name Role Phone Sarkis Dolan MD Primary Care Provider [phone] Encounter Details Date Type Department Care Team (Late st Contact Info) Description 10/22/2000 Outpatient Historical HIS [facility] So Garcia Social History Tobacco Use Types Packs/Day Years Used Date Smoking Tobacco: Never Assessed Comments Unknown Sex and Gender Information Value Date Recorded Sex Assigned at Not on file Legal Sex Female 4:29 AM CORRECTIONAL SUPERVISING COOK Gender Identity Not on file Sexual Orientation Not on file documented as of this encounter Plan of Treatment Not on file documented as of this encounter Visit Diagnoses Not on filedocumented in this encounter Care Teams Mobile Ui/Ux Designer Relationship Specialty Start Date End Date Sarkis Dolan MD [address] [place] [address] PCP - General 10/31/00 documented as of this encounter
--- OUTSIDE RECORDS SUMMARY | 2025-05-03 17:31 | XMS_ITS | Encounter Summary ---
Author Organization [employer] Address [address] [place] [address] Care Team Providers Care Fisher Purse Seine Name Role Phone Sarkis Dolan MD Primary Care Provider [phone] Encounter Details Date Type Department Care Team (Latest Contact Info) Description 02/18/2001 Outpatient Historical [facility]-PATIENT Urinary tract infection, site not specified (Primary Dx) Social History Tobacco Use Types Packs/Day Years Used Date Smoking Tobacco: Never Assessed Comments Unknown Sex and Gender Information Value Date Recorded Sex Assigned at Not on file Legal Sex Female 4:29 AM MAKE READY WORKER Gender Identity Not on file Sexual Orientation Not on file documented as of this encounter Plan of Treatment Not on file documented as of this encounter Visit Diagnoses Diagnosis Urinary tract infection, site not specified- Primary documented in this encounter Care Teams Fisher Purse Seine Relationship Specialty Start Date End Date Sarkis Dolan MD [address] [place] [address] PCP - General 10/31/00 documented as of this encounter
--- OUTSIDE RECORDS SUMMARY | 2025-05-03 17:31 | XMS_ITS | Encounter Summary ---
Author Organization [employer] Address [address] [place] [address] Care Team Providers Care Furnace Converter Name Role Phone Sarkis Dolan MD Primary Care Provider [phone] Encounter Details Date Type Department Care Team (Latest Contact Info) Description 02/05/2001 Inpatient Historical HIS [facility] Brian Akers MD [address] [place] [address] Leiomyoma of uterus, unspecified (Primary Dx) Social History Tobacco Use Types Packs/Day Years Used Date Smoking Tobacco: Never Assessed Comments Unknown Sex and Gender Information Value Date Recorded Sex Assigned at Not on file Legal Sex Female 4:29 AM SERVICE WRITER ADVISOR Gender Identity Not on file Sexual Orientation Not on file documented as of this encounter Plan of Treatment Not on file documented as of this encounter Visit Diagnoses Diagnosis Leiomyoma of uterus, unspecified- Primary documented in this encounter Care Teams Furnace Converter Relationship Specialty Start Date End Date Sarkis Dolan MD [address] [place] [address] PCP - General 10/31/00 documented as of this encounter
--- OUTSIDE RECORDS SUMMARY | 2025-05-03 17:31 | XMS_ITS | Encounter Summary ---
Author Organization [employer] Address [address] [place] [address] Care Team Providers Care Crisis Clinician Name Role Phone Sarkis Dolan MD Primary Care Provider [phone] Encounter Details Date Type Department Care Team (Latest Contact Info) Description 10/30/2000 Outpatient Historical [facility], [address] Irregular menstrual cycle (Primary Dx) Social History Tobacco Use Types Packs/Day Years Used Date Smoking Tobacco: Never Assessed Comments Unknown Sex and Gender Information Value Date Recorded Sex Assigned at Not on file Legal Sex Female 4:29 AM AMERICAN SIGN LANGUAGE TEACHER Gender Identity Not on file Sexual Orientation Not on file documented as of this encounter Plan of Treatment Not on file documented as of this encounter Visit Diagnoses Diagnosis Irregular menstrual cycle- Primary documented in this encounter Care Teams Crisis Clinician Relationship Specialty Start Date End Date Sarkis Dolan MD [address] [place] [address] PCP - General 10/31/00 documented as of this encounter
--- OUTSIDE RECORDS SUMMARY | 2025-05-03 17:31 | XMS_ITS | Encounter Summary ---
Author Organization [employer] Address [address] [place] [address] Care Team Providers Care Quality Reviewer Name Role Phone Sarkis Dolan MD Primary Care Provider [phone] Encounter Details Date Type Department Care Team (Latest Contact Info) Description 03/27/2001 Outpatient Historical HIS [facility] Luisito Alvarez MD [address] [place] [address] Atherosclerosis of renal artery (Primary Dx) Social History Tobacco Use Types Packs/Day Years Used Date Smoking Tobacco: Never Assessed Comments Unknown Sex and Gender Information Value Date Recorded Sex Assigned at Not on file Legal Sex Female 4:29 AM HEATING TECHNICIAN Gender Identity Not on file Sexual Orientation Not on file documented as of this encounter Plan of Treatment Not on file documented as of this encounter Visit Diagnoses Diagnosis Atherosclerosis of renal artery- Primary documented in this encounter Care Teams Quality Reviewer Relationship Specialty Start Date End Date Sarkis Dolan MD [address] [place] [address] PCP - General 10/31/00 documented as of this encounter
--- OUTSIDE RECORDS SUMMARY | 2025-05-03 17:31 | XMS_ITS | Encounter Summary ---
Author Organization [employer] Address [address] [place] [address] Care Team Providers Care Camper Assembler Name Role Phone Sarkis Dolan MD Primary Care Provider [phone] Encounter Details Date Type Department Care Team (Latest Contact Info) Description 02/01/2001 Outpatient Historical [facility] Chuck Pemberton MD [address] [place] [address] Congenital renal agenesis and dysgenesis (Primary Dx) Social History Tobacco Use Types Packs/Day Years Used Date Smoking Tobacco: Never Assessed Comments Unknown Sex and Gender Information Value Date Recorded Sex Assigned at Not on file Legal Sex Female 4:29 AM UNDERCOVER COP Gender Identity Not on file Sexual Orientation Not on file documented as of this encounter Plan of Treatment Not on file documented as of this encounter Visit Diagnoses Diagnosis Congenital renal agenesis and dysgenesis- Primary documented in this encounter Care Teams Camper Assembler Relationship Specialty Start Date End Date Sarkis Dolan MD [address] [place] [address] PCP - General 10/31/00 documented as of this encounter
--- OUTSIDE RECORDS SUMMARY | 2025-05-03 17:31 | XMS_ITS | Encounter Summary ---
Author Organization [facility] Address [address] [place] [address] Care Team Providers Care Per Assessment Nurse Name Role Phone Sarkis Dolan MD Primary Care Provider [phone] Encounter Details Date Type Department Care Team (Late st Contact Info) Description 03/10/2001 Outpatient Historical [facility] Sarkis Mata Social History Tobacco Use Types Packs/Day Years Used Date Smoking Tobacco: Never Assessed Comments Unknown Sex and Gender Information Value Date Recorded Sex Assigned at Not on file Legal Sex Female 4:29 AM HYDRO PLANT SITE MANAGER Gender Identity Not on file Sexual Orientation Not on file documented as of this encounter Plan of Treatment Not on file documented as of this encounter Visit Diagnoses Not on filedocumented in this encounter Care Teams Per Assessment Nurse Relationship Specialty Start Date End Date Sarkis Dolan MD [address] [place] [address] PCP - General 10/31/00 documented as of this encounter
--- OUTSIDE RECORDS SUMMARY | 2025-05-03 17:32 | XMS_ITS | Encounter Summary ---
Author Organization [facility] Address 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
--- OUTSIDE RECORDS SUMMARY | 2025-05-03 17:32 | XMS_ITS | Encounter Summary ---
Author Organization [facility] Address 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
--- OUTSIDE RECORDS SUMMARY | 2025-05-03 17:32 | XMS_ITS | Encounter Summary ---
Author Organization [employer] Address [address] [place] [address] Care Team Providers Care Learning And Development Director Name Role Phone Sarkis Dolan MD Primary Care Provider [phone] Encounter Details Date Type Department Care Team (Latest Contact Info) Description 12/19/2000 Outpatient Historical HIS [facility] Monroe Burnett MD [address] 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
--- OUTSIDE RECORDS SUMMARY | 2025-05-03 17:32 | XMS_ITS | Patient Health Record ---
Author Organization [facility] [employer] [place] ([address] Address [address] [place] [address] Care Team Providers Care Cartography Teacher Name Role Phone Lizzie Franklin Primary Care Provider Unavailab Pita Childers Unavailable [phone] Allergies No Known Allergies Reason For Referral No Information Medications Medication SIG (Take, Route, Frequency, Duration) Notes Start Date End Date Status NASACORT uses prn Active Cetirizine HCl 10 MG 1 tab(s) orally onc e a day 09/19/2022 Active Flonase Sensimist 27.5 MCG/SPRAY as directed intranasally once a day; Duration: 30 day(s) 09/19/2022 Active FLONASE SENSIMIST 27.5 mcg/inh as directed intranasally once a day; Duration: 30 day(s) 09/19/2022 Active ALBUTEROL (EQV-PROVENTIL HFA) 90 MCG/INH 2 PUFF(S) INHALED EVERY 6 HOURS *Please review for potential replacement for e-prescription and drug interaction check* 09/19/2022 Active LEVOTHYROXINE 25 mcg (0.025 mg) 1 tab(s) orally once a day; Duration: 30 day(s) Active ARNUITY ELLIPTA furoate 100 [...] once a day; Duration: 30 day(s) Active CETIRIZINE HYDROCHLORIDE 10 mg [...] Status Risk Notes Problem Chronic allergic conjunctivitis (14856420) Other chronic allergic conjunctivitis (H10.45) Active confirmed Problem Allergic rhinitis caused by pollen (disorder) (35797946) Allergic rhinitis due to pollen (J30.1) Active confirmed Problem Allergic rhinitis (87753592) Other allergic rhinitis (J30.89) Active confirmed Problem Allergic rhinitis caused by animal hair and dander (195606445029538) Allergic rhinitis due to animal (cat) (dog) hair and dander (J30.81) Active confirmed Problem Polyp of nasal cavity (453985393) 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) Active confirmed Problem Chronic cough (89015743) Chronic cough (R05.3) Active confirmed Plan Of Treatment No Information Insurance Providers Payer Name Payer Address Payer Phone Subscriber Number Group Number Insured Name Patient Relationship to Insured Coverage Start Date Coverage End Date [facility] [employer] Plus [address] [address] [place] [address] [id number] Shena Fierro Self - patient is the insured Medical (General) History Medical History History ICD Code Hypothyroidism Surgical History Surgery Date(Month/Year) C-sections 1984,88, 1995 Major back surgery 1998 Bunionectomy 1996 Hospitalization History Reason Date(Month/Year) C-sections 1984,1987 and 1996 Back surgery 1998 Intestinal blockage 2020
--- OUTSIDE RECORDS SUMMARY | 2025-05-03 17:32 | XMS_ITS | Encounter Summary ---
Author Organization [facility] Address [address] [place] [address] Care Team Providers Care Naval Aircrewman Mechanical Name Role Phone Sarkis Dolan MD Primary Care Provider [phone] Encounter Details Date Type Department Care Team (Late st Contact Info) Description 12/24/2000 Outpatient Historical HIS [facility] Brian Akers MD 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
== END 2025-05-03 14:56 | disposition home or self-care (01) ==
PROVIDERS: PCP Internal Medicine; Visit Provider Internal Medicine
DX: Z78.0 Asymptomatic menopausal state (principal); M85.852 Other specified disorders of bone density and structure, left thigh; M85.851 Other specified disorders of bone density and structure, right thigh
CPT/HCPCS: 77080